=== PATIENT | female | born 1960 | race Caucasian/White ===

== ENCOUNTER → 2018-07-15 13:44 | Outpatient (CLI) | payer OTHER, SELFPAY ==
[2018-07-15 11:31] VITALS: BMI 45.1
== END ==
PROVIDERS: Family Provider Family Medicine; PCP Family Medicine; Referring Provider Nurse Practitioner Women's Health; Visit Provider Nurse Practitioner Women's Health
DX: N89.8 Other specified noninflammatory disorders of vagina (principal)
CPT/HCPCS: 87070; 87077; 87106; 87205

== ENCOUNTER → 2019-05-19 14:12 | Outpatient (CLI) | payer OTHER, SELFPAY ==
[2018-08-12 09:23] VITALS: BMI 45.1
[2019-05-19 16:00] LABS: Hemoglobin A1c 10.3 % (4.2-6.3)
[2019-05-19 16:27] LABS: ALB/GLOB Ratio 0.9 RATIO (0.9-2.4); AST(SGOT) 44 U/L (15-37); Alanine Aminotransfer ALT/SGPT 40 U/L (13-56); Albumin, Serum 3.7 g/dL (3.2-5.0); Alkaline Phosphatase 161 U/L (45-117); Anion Gap 9 (5-15); BUN 9 mg/dL (7-18); BUN/Creat Ratio 11.4 RATIO (10-20); Calcium,Total 9.7 mg/dL (8.5-10.1); Chloride 100 mmol/L (98-107); Creatinine, Serum 0.79 mg/dL (0.55-1.02); EST Glomerular Filtration Rate 80 mL/min (>60); Est Glom Filt Rate - Afr Amer 96 mL/min (>60); Globulin 3.9 g/dL (2.2-4.2); Glucose 302 mg/dL (74-106); Potassium 3.8 mmol/L (3.5-5.1); Protein, Total 7.6 g/dL (6.4-8.2); Sodium Level 136 mmol/L (136-145)
== END ==
PROVIDERS: PCP Family Medicine; Referring Provider Family Medicine; Visit Provider Family Medicine
DX: I10 Essential (primary) hypertension (principal); R81 Glycosuria; E03.9 Hypothyroidism, unspecified; N39.0 Urinary tract infection, site not specified
CPT/HCPCS: 36415; 80053; 83036; 84443; 87086; 87088

== ENCOUNTER → 2019-09-07 07:01 | Outpatient (CLI) | payer OTHER, SELFPAY ==
[2019-06-23 08:17] VITALS: BMI 45.1
--- NOTE | 2019-09-07 07:02 | BI_ITS ---
MAMMOGRAPHY - BILATERAL SCREENING REASON FOR EXAM: Female, 58 years old. Routine annual screening examination. PERTINENT HISTORY: Non-contributory. Remote right stereotactic breast biopsy. TECHNIQUE: Digital bilateral breast tracy (3D mammographic acquisition) in the CC and MLO projections. 2-D mediolateral oblique (MLO) and craniocaudad (CC) views of both breasts were obtained. CAD: Full Field Digital Mammography with Computer Added Detection was performed. COMPARISON: Comparison is made with prior EXAMINATION dated January 07, 2018. FINDINGS: Breast Composition: The breasts are almost entirely fatty. There are no dominant masses or suspicious calcifications. No other significant abnormalities are identified. There has been no significant change since the prior study. BI/SCREEN MAMM (CAD) W/TRACY BILAT IMPRESSION: Stable bilateral screening mammogram. Yearly follow-up mammogram recommended. (A) ASSESSMENT CATEGORY: BIRADS Category 1: Negative. A letter regarding these results will be sent to the patient by the facility within 30 days. Approximately 10% of breast cancers are not detected by mammography. A normal mammogram should not delay biopsy of a clinically suspicious abnormality. [id number] Electronically Signed: Florentin Zhang, at 9:33 EDT , Service support ,
--- OUTSIDE RECORDS SUMMARY | 2020-01-22 06:49 | XMS RPT_ITS | CCD ---
:1960 External Reference #:[id number] Author Organization [facility] Care Team Providers Name Role Phone SAURAV ROMEO Attending Unavailable SAURAV ROMEO Referring Unavailable SAURAV ROMEO Attending Unavailable SAURAV ROMEO Referring Unavailable ALICIA (ACCOUNT DIRECTOR) Attending Unavailable Allergies Reported Allergen Reaction(s) Severity Date of Onset Location atorvastatin Translations: 01-18-2015 [facility] [ ATORVASTATIN CALCIUM] [place] Repository Codeine Translations: [ 06-19-2014 - [facility] CODEINE] [place] Repos[facility] ry Erythromycin Translations: 06-19-2014 [facility] [ ERYTHROMYCIN] [place] Repos itory levoFLOXacin Translations: 01-18-2015 [facility] [ LEVOFLOXACIN] [place] Repos itory metOLazone Translations: [ 01-18-2015 [facility] METOLAZONE] [place] Reposito ry Sulfonamides (Antibiotic) [facility] [ SULFA [place] Repository (SULFONAMIDE ANTIBIOTICS)] traMADol Translations: [ 01-18-2015 - [facility] Main TRAMADOL] [place] Reposito ry Problems Active Problems Category Problem Name Status Date Location Unclassified Vulvar Discomfort Active 12-22-2017 - [facility] ([id number]) Past or Other Problems Category Problem Name Status Date Location Other screening for Encounter for Completed 01-07-2018 - [facility] suspected conditions screening mammogram [place] ([id number]) (not mental disorders for malignant or infectious disease) neoplasm of breast Results Result Name Value Range Unit Interpretation Flag Date Location wound culture/stain on 2018-04-19 Wound Sp. Request/Comment: - Swab Critically 0 04-19-2018 [place] Culture/Stain Smear Result - BACTERIAL VAG INOSIS RESULT: Stain results indicate mixed morphotypes consistent with transition from normal vaginal parker. No Yeast observed No Polymorphonuclear Leukocytes abnormal Clinic Culture Result - Few Escheri jesus coli --> ABNORMAL ALERT Few Normal vaginal parker No Staphylococcus aureus isolated. No yeast isolated. No Beta Streptococcus species isolated. No Neisseria gonorrhoea [facility] isolated. For optimal sens itivity, testing for Neisseria gonorrhoeae should be performed by molecular methods. ([id number]) ORGANISM: Escherichia coli METHOD: Minimum inhibitory concentration(Vitek) Antibiotic Interp CHUNG Status Ampicillin SUSCEPTIBLE <=2 F Gentamicin SUSCEPTIBLE <=1 F Trimeth sulfameth SUSCEPTIBLE <=20 F Ciprofloxacin SUSCEPTIBLE <=0.25 F Cefepime SUSCEPTIBLE <=1 F Piperacillin/Tazobac SUSCEPTIBLE <=4 F Ampicillin Sulbact SUSCEPTIBLE <=2 F Ceftriaxone SUSCEPTIBLE <=1 F Meropenem SUSCEPTIBLE <=0.25 F Ertapenem SUSCEPTIBLE <=0.5 F Comment: Performed By: #### WCUL #### [facility] s [address] [place], [place] [address] progress on 2018-04 Protein mass HNO ID: [id number] Normal 04-19-19 [facility] conc Author: Emily (Ceci) Alicia Montiel ([id number]) Service: (none) Author Type: Nurse Practitioner Type: Progress Notes Filed: 04/19/2018 3:58 PM Note Text: Emily Benedict is a 57 year old female who presents for pr oblem visit Vaginal irritation and bleeding. HPI: pt states that Sat when she wiped there was blood on th e tissue, she inspected and was positive that it was vaginal bleeding. She did wear a pad for the rest of the day and did have some more blood thr u out the day. Vaginal area was very irritated, she has not use the clobeta magali cream since then and states that the irritation is a little better . No bleeding since Sat. No recent intercourse. PAST MEDICAL HISTORY Diagnosis Date - Anxiety - Asthma - DM type 2 (diabetes mellitus, type 2) (HCC) - GERD (gastroesophageal reflux disease) - HTN (hypertension) - Hyperlipidemia - Hypothyroid PAST SURGICAL HISTORY Procedure Laterality Date - APPENDECTOMY HX 75 Lt ovarian cyst - CLOS VESICOVAGINAL FIST ABD AP 1990 3 mo after hysterecomty - COLONOSCOP W/ OR W/O [facility] SPEC 2014 Colonoscopy - LYSIS OF ADHESIONS 2207-0734 8 open surgeries for CYNDI - REPAIR ABDOMINAL HERNIA 11/08/2015 REPAIR HERNIA, RECURRENT VENTRAL, INCARCERATED OR STRANGULAT ED - REPAIR UMBILICAL HERNIA 2001 Mesh placed - RESECT SMALL INTEST,SINGL RESEC/ANAS 01/22/15 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 - removed, sma ll bowel resection, repair ventral hernia - wound vac - TOTAL ABDOM HYSTERECTOMY 1990 ELIAN/BSO for fibroids FAMILY HISTORY Problem Relation Age of Onset - Hypertension Mother - other (Lung Disease) Father Social History Marital status: Spouse name: Christopher Years of education: Number of children: 2 Occupational History 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 sertraline (ZOLOFT) 50 mg tablet Take 50 mg by mouth once da karley. fluconazole (DIFLUCAN) 150 mg tablet Take one tablet PO toda y and one tablet PO in 3 days (Patient not taking: Reported on 04/19/19 ) No current facility-administered medications for this visit. Allergies As of Date: 04/19/2018 Allergen Noted Reaction CODEINE 06/19/2014 Vomiting ERYTHROMYCIN 06/19/2014 Vomiting LEVAQUIN [LEVOFLOXACIN] 01/18/2015 Vomiting LIPITOR [ATORVASTATIN CALCIUM] 01/18/2015 Myalgia SULFA (SULFONAMIDE ANTIBIOTICS) 01/18/2015 Rash and GI Upset TRAMADOL 01/18/2015 Vomiting ZAROXOLYN [METOLAZONE] 01/18/2015 Other: See Comments Fully Assessed 04/19/2018 REVIEW OF SYSTEMS Abdomen: No bloating, early satiety, indigestion, or increas ed flatulence. No abdominal pain, nausea, vomiting, diarrhea, or constipati on. Bladder: No dysuria, gross hematuria, urinary frequency, uri nary urgency, or incontinence. Expanded ROS: N/A Allergies and current medication updated:Yes EXAM: There were no vitals taken for this visit. GENERAL: pleasant, female in no apparent distress HEENT: Normocephalic, atraumatic, mucus membranes moist and no lesions CHEST: Normal inspiratory effort PELVIC: external genitalia normal, normal Bartholin's glands , urethra, Mag[place]rib[place]'s glands, physiologic discharge present, normal appear ing perineal body and perianal region, cervix surgically absent, redness noted on the inner labia, no lacerations or abrasion noted-she has not be en sexually active. BIMANUAL: non-tender NEURO: alert and oriented x3,exam grossly non-focal ASSESSMENT AND PLAN: Wound culture sent Stop Clobetasol cream until culture results are in, may need to see specialist for Lichen sclerosus Will call with results Emily Vargas APRN.CNP cnov on 2018-04-19 CNOV Office Visit (WOOB) Normal 04-19-2018 [place] [facility] EMILY BENEDICT ([id number]) 1960 F [place] Date Time Provider Department ([id number]) 04/19/18 2:45 PM EMILY VARGAS (CECI) WOOB During your visit today, we recorded the following informati on about you: Blood pressure Weight 132/64 119.3 kg Emily Vargas APRN.CNP 04/19/2018 3:58 PM Signed Emily Link Marichuy is a 57 year old female who presents for pr oblem visit Vaginal irritation and bleeding. HPI: pt states that Sat when she wiped there was blood on th e tissue, she inspected and was positive t hat it was vaginal bleeding. She did wear a pad for the rest of the day and did have some more blood thru out the day. Vaginal area was very irritated, she has not use the clobetasol cream since then and states that the irritation is a little better. No bleeding since Sa t. No recent intercourse. PAST MEDICAL HISTORY Diagnosis Date - Anxiety - Asthma - DM type 2 (diabetes mellitus, type 2) ([facility]) - GERD (gastroesophageal reflux disease) - HTN (hypertension) - Hyperlipidemia - Hypothyroid PAST SURGICAL HISTORY Procedure Laterality Date - APPENDECTOMY HX 75 Lt ovarian cyst - CLOS VESICOVAGINAL FIST ABD AP 1990 3 mo after hysterecomty - COLONOSCOP W/ OR W/O [facility] SPEC 2014 Colonoscopy - LYSIS OF ADHESIONS 7499-4783 8 open surgeries for CYNDI - REPAIR ABDOMINAL HERNIA 11/08/2015 REPAIR HERNIA, RECURRENT VENTRAL, INCARCERATED OR STRANGULAT ED - REPAIR UMBILICAL HERNIA 2001 Mesh placed - RESECT SMALL INTEST,SINGL RESEC/ANAS 01/22/15 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 - removed, sma ll bowel resection, repair ventral hernia - wound vac - TOTAL ABDOM HYSTERECTOMY 1990 ELIAN/BSO for fibroids FAMILY HISTORY Problem Relation Age of Onset - Hypertension Mother - other (Lung Disease) Father Social History Marital status: Spouse name: Christopher Years of education: Number of children: 2 Occupational History 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 sertraline (ZOLOFT) 50 mg tablet Take 50 mg by mouth once da karley. fluconazole (DIFLUCAN) 150 m g tablet Take one tablet PO today and one tablet PO in 3 days (Patient not taking: Reported on 04/19/2018 ) No current facility-administered medications for this visit. Allergies As of Date: 04/19/2018 Allergen Noted Reaction CODEINE 06/19/2014 Vomiting ERYTHROMYCIN 06/19/2014 Vomiting LEVAQUIN [LEVOFLOXACIN] 01/18/2015 Vomiting LIPITOR [ATORVASTATIN CALCIUM] 01/18/2015 Myalgia SULFA (SULFONAMIDE ANTIBIOTICS) 01/18/2015 Rash and GI Upset TRAMADOL 01/18/2015 Vomiting ZAROXOLYN [METOLAZONE] 01/18/2015 Other: See Comments Fully Assessed 04/19/2018 REVIEW OF SYSTEMS Abdomen: No bloating, early satiety, indigestion , or increased flatulence. No abdominal pain, nausea, vomiting, diarrhea, or constipation. Bladder: No dysuria, gross hematuria, urinary frequenc y, urinary urgency, or incontinence. Expanded ROS: N/A Allergies and current medication updated:Yes EXAM: There were no vitals taken for this visit. GENERAL: pleasant, female in no apparent distress HEENT: Normocephalic, atraumatic, mucus membranes moist and no lesions CHEST: Normal inspiratory effort PELVIC: external genitalia normal, irma l Bartholin's glands, urethra, [place]rib[place]'s glands, physiologic discharge present, normal appearing vasile helen body and perianal region, cervix surg ically absent, redness noted on the inner labia, no lacerations or abrasion noted-she has not been sexually acti ve. BIMANUAL: non-tender NEURO: alert and oriented x3,exam grossly non-focal ASSESSMENT AND PLAN: Wound culture sent Stop Clobetasol cream until culture resu lts are in, may need to see specialist for Lichen sclerosus Will call with results Emily Vargas, [facility] Referring Provider: SELF [[id number]] Allergies As of Date: 04/19/2018 Noted Allergy Reaction CODEINE 06/19/2014 11 - Vomiting ERYTHROMYCIN 06/19/2014 11 - Vomiting LEVAQUIN (LEVOFLOXACIN) 01/18/2015 11 - Vomiting LIPITOR (ATORVASTATIN CALCIUM) 01/18/2015 17 - Myalgia SULFA (SULFONAMIDE ANTIBIOTICS) 01/18/2015 2 - Rash 8 - GI Upset TRAMADOL 01/18/2015 11 - Vomiting ZAROXOLYN (METOLAZONE) 01/18/2015 14 - Other: See Comments Comments: depletes K+ Date Reviewed: 04/19/2018 Reviewed by: Emily (Ceci) Alicia - Fully Assessed Reason for Visit: Vaginal Discharge [4161] Cmt: 3 days ago bloody discharge fr om vagina Primary Visit Diagnosis:Vaginal irritation [N89.8] Order(s):WOUND CULTURE AND GRAM STAIN [SQWCUL] Order #: [id number] Prescriptions as of 04/19/2018 Sig: CLOBETASOL 0.05 % TOPICAL OIN* apply to affected area twice * LEVOTHYROXINE 75 MCG TABLET HYDROCHLOROTHIAZIDE 25 MG TAB* ESTRADIOL 1 MG TABLET Take 1 mg by mouth once daily. SERTRALINE 50 MG TABLET Take 50 mg by mouth once dot* Problem List As Of Date 04/19/2018 Noted Resolved Overactive bladder [N32.81] INVALID FOR* More... 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 Encounter Status:Closed by EMILY VARGAS on 04/19/18 progress on 2018-01 Protein mass HNO ID: [id number] Normal 01-08-20 18 [facility] Author: Lizette Romeo [place] Service: (none) ([phone]) Author Type: Physician Type: Progress Notes Filed: 01/07/2018 9:54 AM Note Text: Emily Benedict is a 57 year old who presents for her annual gynecologic exam without complaints. Still with vaginal itch ing- reports only minor improvement since starting clobetasol. Denies dis charge or odor- no changes in soaps/detergents. Bx in 2014 confirms LS Postmenopausal: Yes HRT use: No. History of abnormal pap: No Last mammogram: 2017 normal History of abnormal mammogram: No Sexually active: Yes History of STDS: None Patient concerns for STD exposure: No. Pain with intercourse: No Postcoital bleeding: No Hot flashes: No Night sweats: No Vaginal dryness: no- vaginal irritation/itching/burning Exercise: was getting routine exercise- Surgeon told her to stop due to large abdominal mesh Diet: balanced Obstetric History T0 L2 SAB0 TAB0 Ectopic0 Multiple0 Live Births0 PAST MEDICAL HISTORY Diagnosis Date - Anxiety - Asthma - DM type 2 (diabetes mellitus, type 2) (HCC) - GERD (gastroesophageal reflux disease) - HTN (hypertension) - Hyperlipidemia - Hypothyroid PAST SURGICAL HISTORY Procedure Laterality Date - APPENDECTOMY HX 75 Lt ovarian cyst - CLOS VESICOVAGINAL FIST ABD AP 1990 3 mo after hysterecomty - COLONOSCOP W/ OR W/O [facility] SPEC 2015 Colonoscopy - LYSIS OF ADHESIONS 3050-1409 8 open surgeries for CYNDI - REPAIR ABDOMINAL HERNIA 11/08/2015 REPAIR HERNIA, RECURRENT VENTRAL, INCARCERATED OR STRANGULAT ED - REPAIR UMBILICAL HERNIA 2001 Mesh placed - RESECT SMALL INTEST,SINGL RESEC/ANAS 01/22/15 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 No bloating, early satiety, indigestion, or increased flatul ence. Bladder: No dysuria, gross hematuria, urinary frequency, uri nary urgency, or incontinence Breast: No breast lumps, nipple d/c, overlying skin changes, redness or skin retraction Allergies and current medication updated:Yes EXAM: BP 140/80 Ht 5' 3 (1.60m) Wt 257 lb (116.6kg) B KS 45.54 kg/(m2). GENERAL: pleasant, female in no apparent distress HEENT: Normocephalic, atraumatic, mucus membranes moist and no lesions NECK: Supple, full range of motion, no adenopathy and thyroi d normal DERMATOLOGY: Normal, without lesions, non-icteric and non-hi rsute BREAST: soft, non-tender, symmetric, no dominant mass, irma l nipple-areolar complex, no lymphadenopathy and no nipple dis charge ABDOMEN: soft, non-tender and no masses- well healed incisio n sites PELVIC: normal Bartholin's glands, urethra, Magas Arrib[place]'s glands, labia are erythematous, with white thick discharge. Possible yeast wit h LS BIMANUAL: no adnexal masses, non-tender and uterus surgicall y absent RECTOVAGINAL: deferred. NEURO: alert and oriented x3,exam grossly non-focal EXTREMITIES: normal ASSESSMENT/PLAN: 1) Health maintenance: Pap/HPV screening no longer needed Mammogram ordered Nutrition, exercise and routine health maintenance exams rev iewed. Calcium/Vitamin D supplementation information provided. Colon cancer screening: patient to discuss with PCP 2) Follow up one year or sooner as needed 3) diflucan for possible yeast vulvitis and LS flare- contin ue clobetasol now- pt to call if no improvement in one more week- then kadeem l do vulvar biopsy. 4) will send message to [facility] for any further eric mmendations for flare up LS- likely will need to just continue clobetaso l for now Lizette Saini MD Protein mass HNO ID: [id number] Normal 01-08-20 [facility] conc Author: Pavithra Vora Ma [place] Service: (none) (000 00) Author Type: (none) Type: Progress Notes Filed: 01/07/2018 9:54 AM Note Text: Fountain Helper offered: Patient declines. reginald screening on -01-07 REGINALD SCREENING * * *Final Report* * * Normal [facility] DATE OF EXAM: Jan 07 2018 10:05AM [place] ([id number]) WOW 0581 - REGINALD SCREENING / PROCEDURE REASON: Visit for screening mammogram * * * * Physician Interpretation * * * * RESULT: #[id number] - REGINALD SCREENING BILATERAL DIGITAL SCREENING MAMMOGRAM WITH CAD: 01/07/2018 HISTORY: Visit For Screening Mammogram /Screening Mammogram - patient reports NO breast symptoms /Priors available for comparison. RESULT: TECHNIQUE: The study was acquired using full field digital t echnology and interpreted from soft copy. Current study was also evaluated with a Computer Aided Detec tion (CAD). Comparison is made to exams dated: 12/29/2016 mammogram - [facility] and 12/27/2015 mammogram. The tissue of both breasts is predominantly fatty. There are post operative findings in the right breast. No significant masses, calcifications, or other findings are seen in either breast. There has been no significant interval change. IMPRESSION: BENIGN FINDING There is no mammographic evidence of malignancy. A 1 year sc reening mammogram is recommended. Vidhi argueta/cleo:01/07/2018 11:10:55 Dust Collector Attendant: Manisha CHO)([place]), [facility] letter sent: Normal over 40 Mammogram BI-RADS: 2 Benign finding Multiple national specialty organizations have released lauren st cancer screening guidelines for women at average risk for developin g breast cancer - guidelines that are based on both evidence and opin ion, yet differ on when to start and how often to screen for breast c joseer. With representation from Breast Imaging, Internal Medicine, Women 's Health, Family Medicine, and Medical/Surgical Oncology, the [facility] has carefully reviewed the data and reached the following consen bea: 1) All women should engage in shared decision-making with [facility] providers to decide when to start and how often to screen; 2) All women should have the opportunity to start screening mammography at age 40; 3) For women ages 45-55, we recommend annual screening mammo grams; 4) For women ages 55 and over, we support both the transitio n from an annual to a biennial interval if this aligns more with patie nt's values and preferences, or continuation with annual screening; 5) All women should discuss with their providers when to sto p screening mammograms. Hose Tester: Cleo Transcribe Date/Time: Jan 07 2018 10:05A Dictated by: VIDHI STARK MD This examination was interpreted and the report reviewed and electronically signed by: VIDHI STARK MD on Jan 07 2018 11:10AM EST [id number] cnov on 2018-01-07 CNOV Office Visit (WOOB) Normal 01-07-2018 [place] [facility] EMILY BENEDICT ([id number]) 1960 F [facility] Time Provider Department ([id number]) 01/07/18 9:00 AM LIZETTE MARK WOOB During your visit today, we recorded the following informati on about you: Blood pressure Weight Height 140/80 116.6 kg 1.6 m Pavithra Vora Ma 01/07/2018 9:54 AM Signed Fountain Helper offered: Patient declines. Lizette Saini MD 01/07/2018 9:54 AM Signed Emily Benedict is a 57 year old w ho presents for her annual gynecologic exam without complaints. Still with vaginal itching- reports only minor improvement since starting clobetasol. D enies discharge or odor- no changes in soaps/detergents. Bx in 2014 confirms LS Postmenopausal: Yes HRT use: No. History of abnormal pap: No Last mammogram: 2016 normal History of abnormal mammogram: No Sexually active: Yes History of STDS: None Patient concerns for STD exposure: No. Pain with intercourse: No Postcoital bleeding: No Hot flashes: No Night sweats: No Vaginal dryness: no- vaginal irritation/itching/burning Exercise: was getting routine exercise- Surgeon told her to stop due to large abdominal mesh Diet: balanced Obstetric History T0 L2 SAB0 TAB0 Ectopic0 Multiple0 Live Births0 PAST MEDICAL HISTORY Diagnosis Date - Anxiety - Asthma - DM type 2 (diabetes mellitus, type 2) (HCC) - GERD (gastroesophageal reflux disease) - HTN (hypertension) - Hyperlipidemia - Hypothyroid PAST SURGICAL HISTORY Procedure Laterality Date - APPENDECTOMY HX 75 Lt ovarian cyst - CLOS VESICOVAGINAL FIST ABD AP 1990 3 mo after hysterecomty - COLONOSCOP W/ OR W/O [facility] SPEC 2014 Colonoscopy - LYSIS OF ADHESIONS 6127-1806 8 open surgeries for CYNDI - REPAIR ABDOMINAL HERNIA 11/08/2015 REPAIR HERNIA, RECURRENT VENTRAL, INCARCERATED OR STRANGULAT ED - REPAIR UMBILICAL HERNIA 2001 Mesh placed - RESECT SMALL INTEST,SINGL RESEC/ANAS 01/22/15 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 No bloating, early satiety, indigestion, or increased flatulenc e. Bladder: No dysuria, gross hematuria, urinary frequenc y, urinary urgency, or incontinence Breast: No breast lumps, nipple d/c, overlying skin ch anges, redness or skin retraction Allergies and current medication updated:Yes EXAM: BP 140/80 Ht 5' 3 (1.60m) Wt 257 lb ( 116.6kg) BMI 45.54 kg/(m2). GENERAL: pleasant, female in no apparent distress HEENT: Normocephalic, atraumatic, mucus membranes moist and no lesions NECK: Supple, full range of motion, no adenopathy and thyroi d normal DERMATOLOGY: Normal, without lesions, non-icteric and non-hi rsute BREAST: soft, non-tender, symmetric, no dominant mass, normal nipple-areolar complex, no lymphadenopathy and no nipple discharge ABDOMEN: soft, non-tender and no masses- well healed incisio n sites PELVIC: normal Bartholin's glands, urethra, Magas [place]rib[place]'s glands, labia are erythematous, with white thick discharge. Possible yeast wit h LS BIMANUAL: no adnexal masses, non-tender and uterus surgicall y absent RECTOVAGINAL: deferred. NEURO: alert and oriented x3,exam grossly non-focal EXTREMITIES: normal ASSESSMENT/PLAN: 1) Health maintenance: Pap/HPV screening no longer needed Mammogram ordered Nutrition, exercise and routine health maintenance exams rev iewed. Calcium/Vitamin D supplementation information provided. Colon cancer screening: patient to discuss with PCP 2) Follow up one year or sooner as needed 3) diflucan for possible yeast vulvitis and LS flare- continue clobetasol now- pt to call if no improvement in one more week- then will do vulvar biopsy. 4) will send message [facility] for any further re commendations for flare up LS- likely will need to just continue clobetasol fo r now MD Lizette Newsome MD 01/07/2018 9:14 AM Signed Calcium and Vitamin D Supplementation (from the National Institutes of Health Office of Dietary Supplements 2010) Calcium is required by the body for blood vessel, muscle, hormone and nerve functioning. Most of the body's calcium is stored in the bones and teeth where it supports structure and function. Bone is continuously bro bull down and reformed. When bone breakdown exceeds formation, especially in postmenopausal women, bone loss can increase the risk of osteoporosis and f ractures. In addition to low calcium intake, women who smoke, have a fami ly history of osteoporosis, are thin, or , or who take ce rtain medications such as cancer chemotherapy, seizure mediations and steroids are at increased risk of osteoporosis. The calcium requirements in women change with ag e. The National Institutes of Health (NIH) recommends: 1000mg elemental calcium for premenopausal women age 19-50 1200mg elemental calcium for postmenopausal women and all wo men over 50 Milk, yogurt, and cheese are rich natura l sources of calcium and are the major food contributors in the [facility]. For example, 8oz of milk (whole, lowfat or skim) contains about 300mg calcium, 8oz of yo gurt contains 415mg. Nondairy sources include salmon and sardines and vegetables, davalos ch as Grenadian cabbage, kale, and broccoli. Foods fortified with calcium include m any fruit juices, tofu and cereals. For more food calcium content information, visit http://ods.od.nih.gov/factsheets/calcium. Calcium supplements come in several different forms. Bharath r that the recommendations are for millgrams (mg) of elemen melchor calcium which may be less than the total weight of the supplement. The amount of marleni mental calcium is required to be printed on the label. Calcium car bonate is the least expensive form. It must be taken on a full stomach to be properly absorbed. Some patients may experience gas or constipation. Calcium phos phate and calcium citrate may be taken either with or with out food and tend to have less side effects but are generally more expensive. Because of its ability to neutralize stomach aci d, calcium carbonate is found in some odam-gnv-xwtaeej antacid products, such as Tums? and Rolaids?. Depending on its strength, each chewable pill or softchew provides 200 to 400 mg of elemental calcium. The percentage of calcium absorbed depends on the total am ount of elemental calcium consumed at one time . Absorption is highest in doses <500mg. So a woman who takes 1,000mg/day of calcium from supplements should s plit the dose and take 500mg at two separate times during the day. Too much calcium can cause kidney stones, constipation , difficulty absorbing other nutrients and calcium buildup in blood vessels. Women under 50 should not exceed 2500mg/day (2000mg/day for women over 50) of calcium from food and supplements. Excessive alcohol and caffeine intake can inhibit absorption of calcium. Calcium can reduce the absor ption of some medications if taken at the same time of day (bisphosphonates, thyroid medication, Phenytoin and o ther seizure medications, some antibiotics and iron supplements). Vitamin D promotes calcium absorption in the gut and maintains adequate blood levels of calcium and phosphate for normal bone growth and bone remodeling. Vitamin D also helps regulate cell growth as wel l as nerve, muscle and immune system function. Vitamin D is produced in the sk in as a result of ultraviolet sunlight rays and must be altered in the liver and kidney to become its active form. Recommended intake according to the National Institutes of H ealth is 600 International Units (IU) for girls and women ages 1-70 and 800 IU for women over 70. Very few foods in nature contain vitamin D. T he flesh of fatty fish (such as salmon, tuna, and mackerel) and fish liver oils a re among the best sources. Small amounts of vitamin D are found in beef liver, cheese, mushrooms and egg yolks. Most people meet at least some of their vitamin D needs through exposure to sunlight. Season, time of day, length of d ay, cloud cover, smog, skin melanin content, and sunscreen are among the factors th at affect UV radiation exposure and vitamin D synthesis. Desp ite the importance of the sun for vitamin D synthesis, it is prudent to limit exposu re of skin to sunlight and avoid tanning beds. UV radiation is a carcinogen r esponsible for most of the estimated 1.5 million skin cancers that occur annually i n the [place]. Lifetime cumulative UV damage to skin is also respon sible for some age-associated dryness and other cosmetic changes. In supplements and fortified foods, vitamin D is available in two forms, D2 (ergocalciferol) and D3 (cholecalciferol). The two are equ ivalent at normal supplement doses. For women who require high supplement dose s because of vitamin D deficiency, D3 may work better to raise blood leve ls. Some medications can prevent proper absorption of Vitamin D. Thes e include laxatives, corticosteroids l alyce prednisone, the seizure drugs phenobarbital and phenytoin, the weight-loss drug orlistat ( Xenical? and Everton TM) and the cholesterol-lowering drug cholestyramine (Questran?, LoChole st?, and Prevalite?). Talk to your do ctor about adjusting your recommended daily vitamin D dosage if you take these medications. You should not exceed 4000 mg of vitamin D supplementation d aily unless specifically prescribed by your doctor. ACOG Screening Guidelines (2015) The following health screening schedule is recommended by the [place] [employer] (ACOG). Some of these tests may be ordered or performed by your primary care doctor. Pap test screening The pap test looks at cells on the cervix (the o pening from the vagina to the uterus) to look for cancer or pre-cancerous kessler ges. These changes are caused by the human papillomavirus (HPV). Studies estimate that rajesh f of all women will test positive for this virus within 3 years of starting sexual activity. For young women with a irma l immune system, 90% of HPV infections will resolve within 2 years. There is a vaccine available against s ome forms of HPV. This is recommended for girls and women age 9-26 and is a serie s of 3 injections over 6 months. Because this vaccine does not protect against all HPV types which can cause cervical cancer, women w ho received the vaccine still need pap tests. Pap smear screening should be started at age 21. The p ap test should be done every 3 years from age 21-29. From age 30-65, pap smea rs can be done every 5 years if HPV test is negative or every 3 years if HPV testing is not done. For women over the age of 65, ACOG recommend s against screening women who have had adequate prior screening and are not otherwise at high risk for cervical cancer. Women who have had a hysterectomy also do not need routine pap smear screening unless the pap smear was done for a cervical cancer or moderate to severe dysplasia. Breast cancer screening Mammogram should be performe d every 1-2 years starting at age 40 and every year starting at age 50. Screening may be started earlier dependi ng on family history. Cholesterol screening Lipid panel (cholesterol test) should be checked every 5 years starting at age 45. Diabetes screening Fasting glucose (blood sugar) test should be per formed every 3 years starting at age 45. Colorectal cancer screening Starting at age 50, women sh ould have a screening colonoscopy at least every 10 years. Screening may be started earlier depending on family history. Thyroid screening Thyroid function test (TSH) should be checked every 5 years starting at age 50. Bone mineral density screening All postmenopausal women age 65 and over and postmenopausa l women with risk factors for osteoporosis should have a bone mineral densit y test performed. Risk factors include race, family hist ory of osteoporosis, personal history of fractures, poor nutrition, smoking, heavy alcohol use, early menopause, low calcium intake and low body weigh t. Certain medical conditions and long-term use of some medications may also increase risk . Minimizing irritation of the vulva (area around the vagina) Wear white cotton underwear. Avoid synthetic fabrics and tight clothing. Sleep wearing shorts or pajama bottoms without underwear. Shower as soon as possible after exercise. Avoid clothing detergents and soaps with perfume s or dyes. Use warm (not hot) water to wash the vulva and if you use soap use a product de signed for sensitive skin (like Dove or Cetaphil). Do not douche or use creams/powders in the vulvar area unl ess instructed by your physician. If you must douche, use only plain warm wate r. Make sure the vulva is dry before dressing by pa tting dry with a towel. Avoid vigorous rubbing with the towel. You may want to use the b low dryer (on the cool setting only!) on the vulva. The most important way to let your body heal is by huyen iding scratching. Many patients find it difficult to avoid scratching at night when they are most aware of the itchiness. You can try taking Benad ryl just before bedtime. Some women find it helpful to wear cotton gloves to bed to avoid scratching at night. Referring Provider: LIZETTE MARK [[id number]] Allergies As of Date: 01/07/2018 Noted Allergy Reaction CODEINE 06/19/2014 11 - Vomiting ERYTHROMYCIN 06/19/2014 11 - Vomiting LEVAQUIN (LEVOFLOXACIN) 01/18/2015 11 - Vomiting LIPITOR (ATORVASTATIN CALCIUM) 01/18/2015 17 - Myalgia SULFA (SULFONAMIDE ANTIBIOTICS) 01/18/2015 2 - Rash 8 - GI Upset TRAMADOL 01/18/2015 11 - Vomiting ZAROXOLYN (METOLAZONE) 01/18/2015 14 - Other: See Comments Comments: depletes K+ Date Reviewed: 01/07/2018 Reviewed by: Pavithra Vora Ma - Fully Assessed Reason for Visit: Yearly Exam [187] Primary Visit Diagnosis:Encounter for gynecological examinat ion without abnormal finding [Z01.419] Other Visit Diagnosis:Visit for screening mammogram [Z12.31] Order(s):[facility] [[id number]] Order #: [id number] FUTURE fluconazole (DIFLUCAN) 150 mg tabletTake one tablet PO today and one tablet PO in 3 daysDisp: 2 tabletRfl: 1 clobetasol (TEMOVATE) 0.05 % ointmentApply 1 application to affected area twice daily. TO AFFECTED AREA.Disp: 30 gRfl: 1 Prescriptions as of 01/07/2018 Sig: CLOBETASOL 0.05 % TOPICAL OIN* Apply 1 application to affect * LEVOTHYROXINE 75 MCG TABLET HYDROCHLOROTHIAZIDE 25 MG TAB* ESTRADIOL 1 MG TABLET Take 1 mg by mouth once daily. SERTRALINE 50 MG TABLET Take 50 mg by mouth once dot* FLUCONAZOLE 150 MG TABLET Take one tablet PO today and * Problem List As Of Date 01/07/2018 Noted Resolved Overactive bladder [N32.81] INVALID FOR* More... 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 Most of the body's calcium is stored in t he bones and teeth where it supports structure and function. Bone is cont inuously broken down and reformed. When bone breakdown exceeds format ion, especially in postmenopausal women, bone loss can increase t he risk of osteoporosis and fractures. In addition to low calcium intak e, women who smoke, have a family history of osteoporosis, are thin, Cauc or , or who take certain medications such as cancer chemot herapy, seizure mediations and steroids are at increased risk of ost eoporosis. The calcium requirements in women change with age. The [facility] Institutes of Health (NIH) recommends: 1000mg elemental calcium for premenopausal women age 19-50 1200mg elemental calcium for postmenopausal women and all wo men over 50 Milk, yogurt, and cheese are rich natural sources of calcium and are the major food contributors in the [place]. For example, 8 oz of milk (whole, lowfat or skim) contains about 300mg calcium, 8oz of yogurt contains 415mg. Nondairy sources include salmon and sardines and vegetables, such as [place] cabbage, kale, and broccoli. Teofilo ds fortified with calcium include many fruit juices, tofu and cereals. Fo r more food calcium content information, visit http://ods.od.nih.gov/factsheets/calcium. Calcium supplements come in several different forms. Bharath r that the recommendations are for millgrams (mg) of elemental calcium which may be less than the total weight of the supplement. The amount of elemental calcium is required to be printed on the label. Calcium carb felipe is the least expensive form. It must be taken on a full stomach to be properly absorbed. Some patients may experience gas or constipation. Calcium phosphate and calcium citrate may be taken either with or wi thout food and tend to have less side effects but are generally more expens alfonso. Because of its ability to neutralize stomach acid, calcium c arbonate is found in some ijln-tko-ygkprbp antacid products, such as Lisha s? and Rolaids?. Depending on its strength, each chewable pill or s oftchew provides 200 to 400 mg of elemental calcium. The percentage of calcium absorbed depends on the total amou nt of elemental calcium consumed at one time. Absorption is highes t in doses <500mg. So a woman who takes 1,000mg/day of calcium from sup plements should split the dose and take 500mg at two separate times d uring the day. Too much calcium can cause kidney stones, constipation, diff iculty absorbing other nutrients and calcium buildup in blood vesse ls. Women under 50 should not exceed 2500mg/day (2000mg/day for women over 50) of calcium from food and supplements. Excessive alcohol and caffeine intake can inhibit absorption of calcium. Calcium can reduce the absorption of some medications if tiffanie en at the same time of day (bisphosphonates, thyroid medication, Phenytoin and other seizure medications, some antibiotics and iron supplements). Vitamin D promotes calcium absorption in the gut and maintai ns adequate blood levels of calcium and phosphate for normal bone growth and bone remodeling. Vitamin D also helps regulate cell growth as wel l as nerve, muscle and immune system function. Vitamin D is produced in the skin as a result of ultraviolet sunlight rays and must be altered in t he liver and kidney to become its active form. Recommended intake according to the National Institutes of H ealth is 600 International Units (IU) for girls and women ages 1-70 and 8 00 IU for women over 70. Very few foods in nature contain vitamin D. T he flesh of fatty fish (such as salmon, tuna, and mackerel) and fish luz er oils are among the best sources. Small amounts of vitamin D are found in beef liver, cheese, mushrooms and egg yolks. Most people meet at least some of their vitamin D needs through exposure to sunlight. Season, time of day, length of day, cloud cover, smog, skin melanin content, and sunscreen are among the factors that affect UV radiation exposure and mike min D synthesis. Despite the importance of the sun for vitamin D s ynthesis, it is prudent to limit exposure of skin to sunlight and avoid t anning beds. UV radiation is a carcinogen responsible for most of the est imated 1.5 million skin cancers that occur annually in the [place]. Lifetime cumulative UV damage to skin is also responsible for some ag e-associated dryness and other cosmetic changes. In supplements and fortified foods, vitamin D is available i n two forms, D2 (ergocalciferol) and D3 (cholecalciferol). The two are eq uivalent at normal supplement doses. For women who require high suppleme nt doses because of vitamin D deficiency, D3 may work better to raise blood levels. Some medications can prevent proper absorption of Vitamin D. These include laxatives, corticosteroids like prednisone, the seizure drug s phenobarbital and phenytoin, the weight-loss drug orlistat ( Xenical? and AlliTM) and the cholesterol-lowering drug cholestyramine (Qu estran?, LoCholest?, and Prevalite?). Talk to your doctor about adjus ting your recommended daily vitamin D dosage if you take these medicat ions. You should not exceed 4000 mg of vitamin D supplementation d aily unless specifically prescribed by your doctor. ACOG Screening Guidelines (2015) The following health screening schedule is recommended by [facility] [employer] (ACOG). Some of these t ests may be ordered or performed by your primary care doctor. Pap test screening The pap test looks at cells on the cervix (the opening from the vagina to the uterus) to look for cancer or pre-cancerous changes. The se changes are caused by the human papillomavirus (HPV). Studies estima te that half of all women will test positive for this virus within 3 year s of starting sexual activity. For young women with a normal immune system , 90% of HPV infections will resolve within 2 years. There is a vaccine a vailable against some forms of HPV. This is recommended for girls and women age 9-26 and is a series of 3 injections over 6 months. Because this vaccine does not protect against all HPV types which can cause cervi bartolome cancer, women who received the vaccine still need pap tests. Pap smear screening should be started at age 21. The pap jamal t should be done every 3 years from age 21-29. From age 30-65, pap smear s can be done every 5 years if HPV test is negative or every 3 years if HP V testing is not done. For women over the age of 65, ACOG recommends agai nst screening women who have had adequate prior screening and are not othe rwise at high risk for cervical cancer. Women who have had a hysterectomy also do not need routine pap smear screening unless the pap smear was do ne for a cervical cancer or moderate to severe dysplasia. Breast cancer screening Mammogram should be performed every 1-2 years starting at ag e 40 and every year starting at age 50. Screening may be started earlier de pending on family history. Cholesterol screening Lipid panel (cholesterol test) should be checked every 5 yea rs starting at age 45. Diabetes screening Fasting glucose (blood sugar) test should be performed every 3 years starting at age 45. Colorectal cancer screening Starting at age 50, women should have a screening colonoscop y at least every 10 years. Screening may be started earlier depending o n family history. Thyroid screening Thyroid function test (TSH) should be checked every 5 years starting at age 50. Bone mineral density screening All postmenopausal women age 65 and over and postmenopausal women with risk factors for osteoporosis should have a bone mineral den sity test performed. Risk factors include race, family histo ry of osteoporosis, personal history of fractures, poor nutrition, smoking, heavy alcohol use, early menopause, low calcium intake and l ow body weight. Certain medical conditions and long-term use of some medications may also increase risk. Minimizing irritation of the vulva (area around the vagina) Wear white cotton underwear. Avoid synthetic fabrics and tight clothing. Sleep wearing shorts or pajama bottoms without underwear. Shower as soon as possible after exercise. Avoid clothing detergents and soaps with perfumes or dyes. U se warm (not hot) water to wash the vulva and if you use soap use a produ ct designed for sensitive skin (like Dove or Cetaphil). Do not douche or use creams/powders in the vulvar area unles s instructed by your physician. If you must douche, use only plain warm w ater. Make sure the vulva is dry before dressing by patting dry wi th a towel. Avoid vigorous rubbing with the towel. You may want to use t he blow dryer (on the cool setting only!) on the vulva. The most important way to let your body heal is by avoiding scratching. Many patients find it difficult to avoid scratching at night when they are most aware of the itchiness. You can try taking Benadryl jus t before bedtime. Some women find it helpful to wear cotton gloves to bed to avoid scratching at night. Prescriptions ordered this encounter Disp Refills Start End FLUCONAZOLE 150 MG TABLET 2 ta* 1 01/07/2018 Sig: Take one tablet PO today and one tablet PO in 3 days CLOBETASOL 0.05 % TOPICAL OINTMENT 30 g 1 01/07/2018 Route: TOPICAL Sig: Apply 1 application to affected area twice daily. TO AF FECTED AREA. Medications Discontinued During This Encounter clobetasol (TEMOVATE) 0.05 % ointment 30 g 1 12/22/20172017 Route: TOPICAL Sig: Apply 1 application to affected area twice daily. TO AF FECTED AREA. Disc: Reason for discontinue is not on file. Disposition: Return in 1 year (on 01/07/2019) for Annual Exam . Follow-up and Disposition History Recorded Encounter Status:Closed by LIZETTE ROMEO MD on 01/07/18 cnco on 2018-01-07 [facility] HNO ID: [id number] Normal 01-07-2018 [facility] Author: Mammography Coordinator ([id number]) Service: (none) Author Type: Physician Type: Letter Filed: 01/11/2018 11:31 PM Note Text: January 07, 2018 PID: [id number] Emily Benedict [address] [place] [address] Dear Ms. Benedict, We are pleased to inform you that the results of your recent breast imaging exam on 01/07/2018 are normal. Early detection of cancer is very important. We also underst and recommendations regarding breast cancer screening are contro versial. Please discuss with your primary care provider which strateg y is best for you and whether a mammogram is right for you. Your imaging studies and report will be kept on file at [facility] as part of your permanent medical record and are available f or your continuing care. Thank you for allowing us to help in meeting your health car e needs. Sincerely, Dr. Stark Interpreting Radiologist [facility] (Normal over 40) progress on 2017-12 Protein mass HNO ID: [id number] Normal 12-23-19 [facility] conc Author: Lizette Romeo [place] ([id number]) Service: (none) Author Type: Physician Type: Progress Notes Filed: 12/22/2017 1:20 PM Note Text: Fountain Helper offered: Patient declines. Emily Benedict is a 57 year old female who presents for co ncerns regarding LS flare up. Pt reports over past few weeks vagina l itching and irritation. Pt denies vaginal discharge, odors or other conc erns today. Pt reports she did have some relief with clobetasol but did not use it regularly. Pt reports then tried hydrocortisone which create d a lot of burning sensation. PAST MEDICAL HISTORY Diagnosis Date - Anxiety - Asthma - DM type 2 (diabetes mellitus, type 2) (HCC) - GERD (gastroesophageal reflux disease) - HTN (hypertension) - Hyperlipidemia - Hypothyroid PAST SURGICAL HISTORY Procedure Laterality Date - APPENDECTOMY HX 76 Lt ovarian cyst - CLOS VESICOVAGINAL FIST ABD AP 1990 3 mo after hysterecomty - COLONOSCOP W/ OR W/O [facility] 2014 Colonoscopy - LYSIS OF ADHESIONS [id number] open surgeries for CYNDI - REPAIR ABDOMINAL HERNIA 11/08/2015 REPAIR HERNIA, RECURRENT VENTRAL, INCARCERATED OR STRANGULAT ED - REPAIR UMBILICAL HERNIA 2001 Mesh placed - RESECT SMALL INTEST,SINGL RESEC/ANAS 01/22/15 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 - removed, sma ll bowel resection, repair ventral hernia - wound vac - TOTAL ABDOM HYSTERECTOMY 1990 ELIAN/BSO for fibroids FAMILY HISTORY Problem Relation Age of Onset - Hypertension Mother - other (Lung Disease) Father Social History Marital status: Spouse name: Christopher Years of education: Number of children: 2 Occupational History 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 TO AFFECTED AREA. levothyroxine (SYNTHROID) 75 mcg tablet hydrochlorothiazide (HYDRODIURIL, ESIDRIX) 25 mg tablet estradiol (ESTRACE) 1 mg tablet Take 1 mg by mouth once dot y. sertraline (ZOLOFT) 50 mg tablet Take 50 mg by mouth once da karley. No current facility-administered medications for this visit. Allergies As of Date: 12/22/2017 Allergen Noted Reaction CODEINE 06/19/2014 Vomiting ERYTHROMYCIN 06/19/2014 Vomiting LEVAQUIN [LEVOFLOXACIN] 01/18/2015 Vomiting LIPITOR [ATORVASTATIN CALCIUM] 01/18/2015 Myalgia SULFA (SULFONAMIDE ANTIBIOTICS) 01/18/2015 Rash and GI Upset TRAMADOL 01/18/2015 Vomiting ZAROXOLYN [METOLAZONE] 01/18/2015 Other: See Comments Fully Assessed 03/05/2017 REVIEW OF SYSTEMS Abdomen: no pain Bladder: dysuria .. Expanded ROS: GENERAL: Negative for fever Allergies and current medication updated:Yes EXAM: BP 140/82 Wt 259 lb (117.5kg) GENERAL: pleasant, female in no apparent distress HEENT: Normocephalic and atraumatic NECK: full range of motion DERMATOLOGY: Normal, without lesions, non-icteric and non-hi rsute PELVIC: normal Bartholin's glands, urethra, [place]'s glands, no cervical lesions, good vaginal support, physiologic discharge present , labial agglutination- erythema and excoriations noted- appears c/w LS. NEURO: alert and oriented x3,exam grossly non-focal EXTREMITIES: normal ASSESSMENT AND PLAN: Encounter Diagnosis ICD-10-CM 1. Vulvar irritation N90.89 2. Encounter for screening mammogram for malignant neoplasm of breast Z12.31 [facility] SCREEN[facility] 3. Lichen sclerosus et atrophicus L90.0 4. Vulvar pain R10.2 3. Clobetasol reordered- apply BID x 4 weeks then weekly - i f worsening or no improvement notify office. 4. Vulvar hygiene reviewed 5. RTO yearly exam as scheduled in january Lizette Saini MD cnov on 2017-12-22 CNOV Office Visit (WOOB) Normal 12-22-2017 [facility] MARICHUYEMILY AVILES ([id number]) 1960 F [place] Date Time Provider Department ([id number]) 12/22/17 11:40 AM LIZETTE MARK WOOB During your visit today, we recorded the following informati on about you: Blood pressure Weight 140/82 117.5 kg Lizette Saini MD 12/22/2017 1:20 PM Signed Fountain Helper offered: Patient declines. Emily Benedict is a 57 yea r old female who presents for concerns regarding LS flare up. Pt reports over past few weeks vaginal itching a nd irritation. Pt denies vaginal discharge, odors or other concerns today. P t reports she did have some relief with clobetasol but did not use it regularly. Pt reports then tried hydrocortisone which created a lot of burning sensatio n. PAST MEDICAL HISTORY Diagnosis Date - Anxiety - Asthma - DM type 2 (diabetes mellitus, type 2) (HCC) - GERD (gastroesophageal reflux disease) - HTN (hypertension) - Hyperlipidemia - Hypothyroid PAST SURGICAL HISTORY Procedure Laterality Date - APPENDECTOMY HX 75 Lt ovarian cyst - CLOS VESICOVAGINAL FIST ABD AP 1990 3 mo after hysterecomty - COLONOSCOP W/ OR W/O [facility] 2014 Colonoscopy - LYSIS OF ADHESIONS [id number] 8 open surgeries for CYNDI - REPAIR ABDOMINAL HERNIA 11/08/2015 REPAIR HERNIA, RECURRENT VENTRAL, INCARCERATED OR STRANGULAT ED - REPAIR UMBILICAL HERNIA 2001 Mesh placed - RESECT SMALL INTEST,SINGL RESEC/ANAS 01/22/15 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 - removed, sma ll bowel resection, repair ventral hernia - wound vac - TOTAL ABDOM HYSTERECTOMY 1990 ELIAN/BSO for fibroids FAMILY HISTORY Problem Relation Age of Onset - Hypertension Mother - other (Lung Disease) Father Social History Marital status: Spouse name: Christopher Years of education: Number of children: 2 Occupational History 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 TO AFFECTED AREA. levothyroxine (SYNTHROID) 75 mcg tablet hydrochlorothiazide (HYDRODIURIL, ESIDRIX) 25 mg tablet estradiol (ESTRACE) 1 mg tablet Take 1 mg by mouth once dot y. sertraline (ZOLOFT) 50 mg tablet Take 50 mg by mouth once da karley. No current facility-administered medications for this visit. Allergies As of Date: 12/22/2017 Allergen Noted Reaction CODEINE 06/19/2014 Vomiting ERYTHROMYCIN 06/19/2014 Vomiting LEVAQUIN [LEVOFLOXACIN] 01/18/2015 Vomiting LIPITOR [ATORVASTATIN CALCIUM] 01/18/2015 Myalgia SULFA (SULFONAMIDE ANTIBIOTICS) 01/18/2015 Rash and GI Upset TRAMADOL 01/18/2015 Vomiting ZAROXOLYN [METOLAZONE] 01/18/2015 Other: See Comments Fully Assessed 03/05/2017 REVIEW OF SYSTEMS Abdomen: no pain Bladder: dysuria .. Expanded ROS: GENERAL: Negative for fever Allergies and current medication updated:Yes EXAM: BP 140/82 Wt 259 lb (117.5kg) GENERAL: pleasant, female in no apparent distress HEENT: Normocephalic and atraumatic NECK: full range of motion DERMATOLOGY: Normal, without lesions, non-icteric and non-hi rsute PELVIC: normal Bartholin's glands, urethra, [place]'s glands, no cervical lesions, good vaginal support, physiologic discharge present , labial agglutination- erythema and excoriations noted- appears c/w LS. NEURO: alert and oriented x3,exam grossly non-focal EXTREMITIES: normal ASSESSMENT AND PLAN: Encounter Diagnosis ICD-10-CM 1. Vulvar irritation N90.89 2. Encounter for screening mammogram for malignant tressa plasm of breast Z12.31 [facility] SCREENING 3. Lichen sclerosus et atrophicus L90.0 4. Vulvar pain R10.2 3. Clobetasol reordered- apply BID x 4 weeks the n weekly - if worsening or no improvement notify office. 4. Vulvar hygiene reviewed 5. RTO yearly exam as scheduled in january Lizette Saini MD Referring Provider: SELF [[id number]] Allergies As of Date: 12/22/2017 Noted Allergy Reaction CODEINE 06/19/2014 11 - Vomiting ERYTHROMYCIN 06/19/2014 11 - Vomiting LEVAQUIN (LEVOFLOXACIN) 01/18/2015 11 - Vomiting LIPITOR (ATORVASTATIN CALCIUM) 01/18/2015 17 - Myalgia SULFA (SULFONAMIDE ANTIBIOTICS) 01/18/2015 2 - Rash 8 - GI Upset TRAMADOL 01/18/2015 11 - Vomiting ZAROXOLYN (METOLAZONE) 01/18/2015 14 - Other: See Comments Comments: depletes K+ Date Reviewed: 12/22/2017 Reviewed by: Pavithra Vora Ma - Fully Assessed Reason for Visit: Vaginal Problem [117] Primary Visit Diagnosis:Vulvar irritation [N90.89] Other Visit Diagnoses:Encounter for screening mammogram for malignant neoplasm of breast [Z12.31] Lichen sclerosus et atrophicus [L90.0] Vulvar pain [R10.2] Order(s):[facility] SCREENING [[id number]] Order #: [id number] FUTURE clobetasol (TEMOVATE) 0.05 % ointmentApply 1 application to affected area twice daily. TO AFFECTED AREA.Disp: 30 gRfl: 1 Prescriptions as of 12/22/2017 Sig: CLOBETASOL 0.05 % TOPICAL OIN* Apply 1 application to affect * LEVOTHYROXINE 75 MCG TABLET HYDROCHLOROTHIAZIDE 25 MG TAB* ESTRADIOL 1 MG TABLET Take 1 mg by mouth once daily. SERTRALINE 50 MG TABLET Take 50 mg by mouth once dot* Problem List As Of Date 12/22/2017 Noted Resolved Overactive bladder [N32.81] INVALID FOR* More... 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 TO AF FECTED AREA. Medications Discontinued During This Encounter clobetasol (TEMOVATE) 0.05 % ointment 15 g 1 11/24/20172017 Route: TOPICAL Sig: Apply 1 application to affected area twice daily. TO AF FECTED AREA. Disc: Reason for discontinue is not on file. Encounter Status:Closed by LIZETTE ROMEO MD on 12/22/17 Encounters Date Type Reason Provider Location 04-19-2018 - Patient encounter EMILY (CECI) [facility] 04-20-2018 procedure Montiel ([phone]) 01-07-2018 - Patient encounter LIZETTE candelario [facility] 01-08-2018 procedure OUSMANE Montiel ([id number] [phone]) [facility] ROMEO 12-22-2017 - Patient encounter [facility] 12-23-2017 procedure OUSMANE Montiel (0000 0) Summary Purpose Family History No Family History Records Found Advance Directives No Advanced Directives Records Found Additional Source Comments FOR RECORDS PERTAINING TO PATIENTS WHO ARE OR HAVE BEEN ENROLLED IN A CHEMICAL DEPENDENCY/SUBSTANCE ABUSE PROGRAM, SOME INFORMATION MAY BE OMITTED. This clinical summary was aggregated from multiple sources. Caution should be exercised in using it in the provision of clinical care. This summary normalizes information from multiple sources, and as a consequence, information in this document may materially changethe coding, format and clinical context of patient data. In addition, data may be omittedin some cases. CLINICAL DECISIONS SHOULD BE BASED ON THE PRIMARY CLINICAL RECORDS. [facility] provides no warranty or guarantee of the accuracy or completeness of information in this document. UNRECOGNIZED CONTENT PROVIDED BELOW FOR UNRECOGNIZED SECTION INFORMATION SOURCE DATE CREATED AUTHOR AUTHOR'S ORGANIZATIO N 05/01/2018 [facility]
== END ==
PROVIDERS: PCP Family Medicine; Referring Provider Nurse Practitioner Women's Health; Visit Provider Nurse Practitioner Women's Health
DX: Z12.31 Encounter for screening mammogram for malignant neoplasm of breast (principal)
CPT/HCPCS: 77063; 77067

== ENCOUNTER → 2020-03-22 | Outpatient (CLI) | payer SELFPAY ==
[2019-06-23 08:17] VITALS: BMI 45.1
== END | disposition home or self-care (01) ==
PROVIDERS: PCP Family Medicine; Referring Provider Family Medicine; Visit Provider Family Medicine
DX: N39.0 Urinary tract infection, site not specified (principal)
CPT/HCPCS: 87077; 87086; 87088; 87186

== ENCOUNTER → 2020-07-16 14:12 | Outpatient (CLI) | payer OTHER, SELFPAY ==
[2020-06-28 08:09] VITALS: BMI 42.2
[2020-07-16 18:38] LABS: AST(SGOT) 26 U/L (15-37); Alanine Aminotransfer ALT/SGPT 28 U/L (13-56); Albumin, Serum 3.7 g/dL (3.2-5.0); Alkaline Phosphatase 108 U/L (45-117); Anion Gap 5 (5-15); BUN 14 mg/dL (7-18); Bilirubin, Direct 0.12 mg/dL (0.00-0.30); Calcium,Total 9.3 mg/dL (8.5-10.1); Chloride 103 mmol/L (98-107); Cholesterol 221 mg/dL (200); Creatinine, Serum 0.87 mg/dL (0.55-1.02); EST Glomerular Filtration Rate 71 mL/min (>60); Est Glom Filt Rate - Afr Amer 85 mL/min (>60); Globulin 4.1 g/dL (2.2-4.2); Glucose 130 mg/dL (74-106); High Density Lipoprotein 50 mg/dL; Potassium 3.7 mmol/L (3.5-5.1); Protein, Total 7.8 g/dL (6.4-8.2); Sodium Level 136 mmol/L (136-145); Thyroid Stim Hormone (TSH) 1.19 uIU/mL (0.358-3.74); Triglycerides 440 mg/dL
== END ==
PROVIDERS: PCP Family Medicine; Visit Provider Family Medicine
DX: E03.9 Hypothyroidism, unspecified (principal); E11.9 Type 2 diabetes mellitus without complications
CPT/HCPCS: 36415; 80048; 80061; 80076; 84443

== ENCOUNTER → 2020-10-04 07:04 | Outpatient (CLI) | payer OTHER, SELFPAY ==
[2020-06-28 08:09] VITALS: BMI 42.2
--- NOTE | 2020-10-04 07:06 | BI_ITS ---
MAMMOGRAPHY - BILATERAL SCREENING REASON FOR EXAM: Female, 59 years old. Routine annual screening examination. PERTINENT HISTORY: Non-contributory. Remote right stereotactic breast biopsy. TECHNIQUE: Digital bilateral breast tracy (3D mammographic acquisition) in the CC and MLO projections. 2-D mediolateral oblique (MLO) and craniocaudad (CC) views of both breasts were obtained. CAD: Full Field Digital Mammography with Computer Added Detection was performed. COMPARISON: Comparison is made with prior study dated 09/07/2019 and 12/27/2015. FINDINGS: Breast Composition: The breasts are almost entirely fatty. There are no dominant masses or suspicious calcifications. Stable benign-appearing bilateral axillary lymph nodes. No other significant abnormalities are identified. There has been no significant change since the prior study. BI/SCRN MAMM (CAD)W/TRACY BILAT IMPRESSION: Stable bilateral screening mammogram. Yearly follow-up mammogram recommended. (A) ASSESSMENT CATEGORY: BIRADS Category 2: Benign. A letter regarding these results will be sent to the patient by the facility within 30 days. Approximately 10% of breast cancers are not detected by mammography. A normal mammogram should not delay biopsy of a clinically suspicious abnormality. [id number] Electronically Signed: Florentin Zhang MD at 8:57 EDT , Service support ,
== END ==
PROVIDERS: PCP Family Medicine; Referring Provider Nurse Practitioner Women's Health; Visit Provider Nurse Practitioner Women's Health
DX: Z12.31 Encounter for screening mammogram for malignant neoplasm of breast (principal)
CPT/HCPCS: 77063; 77067

== ENCOUNTER → 2020-12-27 | Outpatient (CLI) | payer OTHER, SELFPAY | END | disposition home or self-care (01) | LOC: LABSPEC 12:42 | PROVIDERS: PCP Family Medicine; Referring Provider Family Medicine; Visit Provider Family Medicine | DX: U07.1 COVID-19 (principal) | CPT/HCPCS: 87635; U0005; U0003 ==

== ENCOUNTER 2021-01-01 09:39 | Inpatient (IN) | payer OTHER, SELFPAY ==
[2021-01-01] VITALS (23 sets, daily range): BP systolic 119–143; BP diastolic 57–81; PULSE 71–96; RESP 17–31; TEMP 35.7–37; O2SAT 83–99; BMI 40.8; BMI 41.7
--- NOTE | 2021-01-01 10:01 | EKG12_ITS ---
Test Reason : SOB Blood Pressure : / mmHG Vent. Rate : 085 BPM Atrial Rate : 085 BPM P-R Int : 190 ms QRS Dur : 092 ms QT Int : 396 ms P-R-T Axes : 036 -06 012 degrees QTc Int : 471 ms Sinus rhythm with frequent Premature ventricular complexes Possible Inferior infarct , age undetermined Abnormal ECG Confirmed by SUKHDEEP MICHELLE, ELISA ([id number]), fashion editor RAMESH SANDS ([id number]) on 01/03/2021 8:39:14 AM Referred By: KAROL Confirmed By:ELISA TARANGO MD
--- NOTE | 2021-01-01 10:02 | EDS_ITS ---
HPI History of Present Illness Chief Complaint: Shortness of Breath Informant: patient Narrative Narrative: Patient is 60-year-old female with history of diabetes, asthma, obstructive sleep apnea, hypertension, hyperlipidemia and hypothyroid presenting for worsening shortness of breath. Patient started having symptoms on 12/21 and was diagnosed with Covid on 12/27. She states has had nausea, headache, myalgias, cough that is intermittently productive and shortness of breath. She notes it hurts to breathe. She states her sputum is intermittently productive of dark aguirre white frothy sputum. She took 8 mg of Zofran at 6 AM and continue still very nauseous. She denies any change in her bowel habits. She does not wear oxygen at home but was hypoxic requiring supplemental oxygen upon arrival. Patient did not receive any infusion of monoclonal antibodies. No other complaints at this time. [facility] Medical History (Updated 01/01/21 @ 15:[address] Mary Viveros DO) Diabetes type 2, controlled Lichen sclerosus Home Medications sertraline 50 mg PO QHS 03/31/14 [History Last Taken 12/31/20 22:00] levothyroxine 75 mcg PO DAILY 01/19/15 [History Last Taken 12/31/20 09:00] estradiol 1 mg tablet 1 mg PO DAILY #30 tab 07/15/18 [Rx Last Taken 12/31/20 09:00] Allergy/AdvReac Type Severity Reaction Status Date / Time atorvastatin calcium AdvReac Intermediate Other Verified 01/01/21 10:26 [From Lipitor] erythromycin base AdvReac Intermediate Vomiting Verified 01/01/21 10:26 levofloxacin [From Levaquin] AdvReac Intermediate Nausea/Vom/ Verified 01/01/21 10:26 Diarrhea codeine AdvReac Vomiting Verified 01/01/21 10:26 hydrocodone bitartrate AdvReac Nausea/Vom/ Verified 01/01/21 10:26 [From Vicodin] Diarrhea metolazone [From Zaroxolyn] AdvReac Other Verified 01/01/21 10:26 Sulfa (Sulfonamide AdvReac Vomiting Verified 01/01/21 10:26 Antibiotics) tramadol AdvReac Vomiting Verified 01/01/21 10:26 Family History Mother Hypertension Father Lung disease Surgical History bowel blockage H/O: hysterectomy hernia repair with mesh mesh removal partial bowel removal Puncture wound of small intestine, open Social History adopted: No household members: spouse number of children: 2 current occupational status: unemployed sexually active: Yes Smoking Status: Never smoker alcohol intake: never substance use type: does not use well-balanced diet: about half the time caffeine: Yes (5 cups q day) what type of physical activity do you participate in: none seatbelt use: always do you feel safe at home: Yes additional social history: 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 ROS ROS ED Constitutional Constitutional ED: Reports chills; Denies fever(s) Eyes Eyes: Denies blurry vision or change in vision ENT ENT ED: Reports other Details: Nasal congestion ; Denies ear pain or rhinorrhea Cardiovascular Cardiovascular: Reports chest pain; Denies palpitations or racing heartbeat Respiratory/Chest Respiratory/Chest: Reports cough, dyspnea, dyspnea on exertion and sputum Gastrointestinal Gastrointestinal: Reports abdominal pain and nausea; Denies diarrhea or vomiting Genitourinary Genitourinary ED: Reports urinary frequency; Denies dysuria or hematuria Musculoskeletal Musculoskeletal: Reports myalgias; Denies arthralgias Integumentary Denies rash Neurologic Neurologic: Reports headache(s) and weakness Psychiatric Psychiatric: Denies anxiety or depression EXAM Physical Exam Const Vital Signs: 01/01/21 09:40 01/01/21 10:22 01/01/21 10:23 Temperature 96.8 F L 98.6 F Temperature Source Temporal Temporal Pulse Rate 80 93 Respiratory Rate 24 H 17 Respiratory Effort Short of Breath Labored Respiratory Depth Deep Respiratory Pattern Tachypnea Blood Pressure 139/70 H 139/70 H Blood Pressure Mean 93 93 Pulse Ox 83 91 Oxygen Delivery Method Room Air Nasal Cannula Nasal Cannula Oxygen Flow Rate (L/min) 4 4 01/01/21 12:24 Temperature 96.2 F L Temperature Source Temporal Pulse Rate 87 Respiratory Rate 26 H Respiratory Effort Respiratory Depth Respiratory Pattern Blood Pressure 137/71 H Blood Pressure Mean 93 Pulse Ox 88 Oxygen Delivery Method Nasal Cannula Oxygen Flow Rate (L/min) 6 Positive well nourished, well developed and obese General Appearance ED: well developed Nutritional Appearance: obese HEENT Reports TM's clear and dry mucous membranes atraumatic Tympanic Membrane ED: Yes TM's clear Mouth ED: Yes dry mucous membranes Mouth: dry mucous membranes Eyes PERRL and EOMs intact bilaterally Neck no lymphadenopathy, supple, no meningeal signs and no JVD Resp normal respiratory effort Resp Narrative: Scattered crackles throughout Auscultation: diminished lung sounds Cardio regular rate, regular rhythm and no murmurs GI non-tender and non-distended Auscultation: normoactive bowel sounds Palpation: soft Back/Spine no CVA tenderness and normal to inspection Extremity normal to inspection General Extremety ED: Negative for edema or tenderness General Extremity: Negative for edema Neuro oriented x3 and no sensory deficits noted Sensorium / Orientation: alert Motor Exam: general weakness Psych mental status grossly normal Skin Lesions: no lesions Rashes: no rashes MDM MDM MDM Narrative Medical decision making narrative: Patient evaluated for increased shortness of breath and worsening symptoms since being diagnosed with COVID-19 infection. She is requiring submental oxygen initially of 6 L. While in the ER she has increased O2 demands. I suspect this is all secondary to Covid however work-up with D-dimer is obtained to look for signs of PE. This is negative. Chest x- ray is consistent with COVID-19 pneumonia. Her procalcitonin is normal and I do not suspect a secondary bacterial pneumonia. She has normal white blood cell count. Inflammatory markers are elevated which is consistent again with her COVID-19 infection. Given her high O2 requirements she will be admitted to the ICU because of my concern for increased risk of sudden clinical deterioration. Patient's lactate is elevated by suspect this is from hypoxia and I do not think this is infectious in nature. I do not think she has sepsis. Lab Data Attestation: I reviewed the patient's lab results. Labs: Laboratory Results - last 24 hr 01/01/21 01/01/21 01/01/21 10:30 10:30 10:30 WBC 7.2 RBC 4.45 Hgb 13.8 Hct 40.3 MCV 90.6 MCH 31.0 MCHC 34.2 RDW Std Deviation 40.0 RDW Coeff of Yves 12.1 Plt Count 238 MPV 10.5 Immature Gran % (Auto) 0.400 Neut % (Auto) 73.5 H Lymph % (Auto) 21.8 [place] % (Auto) 3.9 Eos % (Auto) 0.1 Baso % (Auto) 0.3 Absolute Neuts (auto) 5.3 Absolute Lymphs (auto) 1.57 Nucleated RBC % 0 Fibrinogen 710 H D-Dimer Quant (PE/DVT) 0.37 Sodium 140 Potassium 3.4 L Chloride 103 Carbon Dioxide 26.0 Anion Gap 11 BUN 7 Creatinine 0.68 Estim Creat Clear Calc 70.45 Est GFR (MDRD) Af Amer 113 Est GFR (MDRD) Non-Af 94 BUN/Creatinine Ratio 10.3 Glucose 212 H Lactic Acid Calcium 9.1 Total Bilirubin 0.60 AST 31 ALT 28 Alkaline Phosphatase 175 H Lactate Dehydrogenase 291 H Total Creatine Kinase 76 Troponin I High Sens 6 C-React Prot Ext Range 59.30 H Total Protein 8.2 Albumin 2.8 L Globulin 5.4 H Albumin/Globulin Ratio 0.5 L Procalcitonin 01/01/21 01/01/21 01/01/21 10:30 10:30 10:30 WBC RBC Hgb Hct MCV MCH MCHC RDW Std Deviation RDW Coeff of Yves Plt Count MPV Immature Gran % (Auto) Neut % (Auto) Lymph % (Auto) [place] % (Auto) Eos % (Auto) Baso % (Auto) Absolute Neuts (auto) Absolute Lymphs (auto) Nucleated RBC % Fibrinogen D-Dimer Quant (PE/DVT) Sodium Potassium Chloride Carbon Dioxide Anion Gap BUN Creatinine Estim Creat Clear Calc Est GFR (MDRD) Af Amer Est GFR (MDRD) Non-Af BUN/Creatinine Ratio Glucose Lactic Acid 2.1 H* Calcium Total Bilirubin AST ALT Alkaline Phosphatase Lactate Dehydrogenase Total Creatine Kinase Troponin I High Sens C-React Prot Ext Range Total Protein Albumin Globulin Albumin/Globulin Ratio Procalcitonin 0.04 Cancelled Radiography Chest X-Ray - ED: 1 View, Read by ED Physician, Read by Radiologist, Right Infiltrate and Left Infiltrate Diagnostic Testing: Radiology Impression Chest X-Ray 01/01/21 10:39 IMPRESSION: Patchy bilateral pulmonary infiltrates worse in the left hemithorax. 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
[2021-01-01] MEDS: Metoclopramide 10 MG/2 ML Vial 5 MG IV (10:32)
--- NOTE | 2021-01-01 10:39 | RAD_ITS ---
STUDY: X-RAY CHEST REASON FOR EXAM: Female, 60 years old. Shortness of breath and cough. Covid positive. TECHNIQUE: Single AP portable view of the chest. COMPARISON: Comparison is made with prior study 01/09/2017. FINDINGS: EKG electrodes are seen. Patchy bilateral pulmonary infiltrates worse in the left hemithorax. There is no demonstrated pleural abnormality. Normal size heart. Normal mediastinum and broderick. Normal visualized pulmonary arteries. Normal visualized aortic arch and descending thoracic aorta. There are degenerative changes of the visualized thoracic spine. Normal visualized ribs, clavicles, and shoulders. There is no demonstrated abnormality of the visualized soft tissue structures of the upper abdomen. RAD/Chest 1 View (Portable) IMPRESSION: Patchy bilateral pulmonary infiltrates worse in the left hemithorax. Electronically Signed: Florentin Zhang MD at 11:07 EDT , Service support ,
[2021-01-01 10:49] LABS: Absolute Lymphocyte Count 1.57 X10^3/uL (0.83-4.51); Absolute Neutrophil Count 5.3 X10^3/uL (2.0-7.7); Basophil# 0.02 X10^3/uL; Basophil% 0.3 % (0-1); Eosinophil# 0.01 X10^3/uL; Eosinophils% 0.1 % (0-5); Hematocrit 40.3 % (37-47); Hemoglobin 13.8 g/dL (12.0-15.0); Lymphocyte # 1.57 X10^3/ul (0.83-4.51); Lymphocyte % 21.8 % (19-41); Mean Corp Hgb Conc 34.2 g/dL (32-36); Mean Corpuscular Volume 90.6 fL (81-99); Mean Platelet Vol. 10.5 fl (6.2-12.0); Monocyte# 0.28 X10^3/uL; Monocyte% 3.9 % (0-10); NRBC Flagged by Analyzer 0 % (0-5); Neutrophil % 73.5 % (47-70); Platelet Count 238 K/mm3 (150-450); RBC Distribution Width CV 12.1 % (11.6-14.6); Red Blood Count 4.45 M/mm3 (4.2-5.4); White Blood Count 7.2 K/mm3 (4.4-11.0)
[2021-01-01 11:00] LABS: D-Dimer Quantitative (DVT/PE) 0.37 FEU/ug/m (0.27-0.49)
[2021-01-01 11:08] LABS: ALB/GLOB Ratio 0.5 RATIO (0.9-2.4); AST(SGOT) 31 U/L (15-37); Alanine Aminotransfer ALT/SGPT 28 U/L (13-56); Albumin, Serum 2.8 g/dL (3.2-5.0); Alkaline Phosphatase 175 U/L (45-117); Anion Gap 11 (5-15); BUN 7 mg/dL (7-18); BUN/Creat Ratio 10.3 RATIO (10-20); CPK Total, Creatine Kinase 76 U/L (26-192); Calcium,Total 9.1 mg/dL (8.5-10.1); Chloride 103 mmol/L (98-107); Creatinine, Serum 0.68 mg/dL (0.55-1.02); EST Glomerular Filtration Rate 94 mL/min (>60); Est Glom Filt Rate - Afr Amer 113 mL/min (>60); Estimated Creatinine Clearance 70.45 ml/min; Globulin 5.4 g/dL (2.2-4.2); Glucose 212 mg/dL (74-106); LDH 291 U/L (84-246); Potassium 3.4 mmol/L (3.5-5.1); Protein, Total 8.2 g/dL (6.4-8.2); Sodium Level 140 mmol/L (136-145); Troponin-I HS 6 pg/mL (3.0-54.0)
[2021-01-01 11:10] LABS: Fibrinogen 710 mg/dl (203-444)
[2021-01-01 11:11] LABS: Lactic Acid 2.1 mmol/L (0.4-1.9)
[2021-01-01 11:47] LABS: Procalcitonin 0.04 ng/mL (0.00-0.09)
--- NOTE | 2021-01-01 13:03 | NURSING ---
ICU RUFINA KING, HYPOXIA
[2021-01-01] MEDS: dexAMETHasone 4 MG Tablet 6 MG PO (13:12)
--- NOTE | 2021-01-01 13:16 | NURSING ---
ICU 6
--- NOTE | 2021-01-01 13:31 | PCS.PANDOC ---
PANDEMIC DOCUMENTATION INITIATED: Date: 11/19/2020 Time: 190
[2021-01-01] MEDS: Enoxaparin 40 MG/0.4 ML Syringe SC ×2 (14:19→21:00)
[2021-01-01 14:41] LABS: Reflex Lactate? Y
--- NOTE | 2021-01-01 15:02 | EX.PCM.CONCC ---
Assessment & Plan Assessment/Plan (1) Asthma: (2) RODRIGO (obstructive sleep apnea): (3) Abdominal wall fistula: PLAN: RECOMMENDATIONS: 1. Continue CPAP 10 cm of water with sleep 2. Wean supplemental oxygen as tolerated 3. Initiate Decadron therapy. Not a candidate for PEDRO or Remdesivir therapy 4. Increase basal insulin 5. Encourage incentive spirometer, Acapella, out of bed and prone positioning as tolerated 6. Diuresis as tolerated by labs 7. Use bronchoscope if necessary for intubation IMPRESSIONS: 1. Acute hypoxic respiratory insufficiency secondary to COVID-19 Patient's D-dimer and pro calcitonin are within normal limits. Likelihood of concomitant PE and bacterial infection are relatively low. Unfortunately, patient is delayed in presentation at 11 days, so remdesivir and PEDRO therapy have been proven less effective. Patient should be placed on Decadron therapy. We will have to watch blood sugars closely. Patient does have a history of being a difficult intubation. We will continue to watch in the intensive care unit as patient may require advanced airway assistance if necessary. Patient did confirm she is a full code. We will add vitamin C and zinc. Okay to initiate bronchodilators if patient develops wheezing. 2. Diabetes mellitus Patient not currently on insulin therapy, but given the Decadron has come to be using, high clinical suspicion that basal insulin will be required. 3. RODRIGO/hypertension/hyperlipidemia/morbid obesity/extensive abdominal wall surgeries/nonvaccinated status/supplemental hormone therapy Complicates care, management, recovery and prognosis. Okay to continue with statin therapy from my perspective. Okay to continue with baseline antihypertensive medications from my perspective. Would not recommend continuation of hormonal therapy as patient is already at high risk for thrombotic complications given COVID-19. HPI Consult Data Date of Consult: 01/01/21 HPI Narrative HPI Narrative: MADDY BENEDICT is a 60 F, with past medical history listed below, who presents to [facility] on 01/01/2021 secondary to progressive shortness of breath. Patient had also had some nausea, headache, myalgias and diarrhea. Patient states that symptoms started on 12/21/2020 and patient was formally diagnosed with COVID-19 on 12/27/2020. Patient had reported some pleuritic type chest pains that she associates with persistent cough. Cough is productive of dark yellow to white frothy sputum. Patient continues to have nausea despite Zofran therapy. Patient does report a history of asthma with intermittent albuterol use, but is never required supplemental oxygen previously. Patient is unvaccinated against COVID-19 and did not receive any monoclonal antibodies. In the ER, patient was afebrile, but tachypneic at 24 breaths/min. Patient was noted to be 83% on room air and slightly hypertensive. Laboratory work-up showed a white blood cell count of 7.2 with 22% lymphocytes, elevated fibrinogen of 710, but normal D-dimer. Patient did have lower potassium of 3.4 and normal renal function. Glucose was elevated to 212 and lactate was elevated at 2.1. Alkaline phosphatase was slightly elevated at 175, but other LFTs were within normal range. Patient CRP was elevated at 60 and pro calcitonin was within normal limits. Patient was transferred to the intensive care unit for further evaluation. Since being the intensive care unit, patient reports she feels subjectively slightly improved compared to previous. Patient is not reporting any current chest pain, but has had some nausea. Patient denies any syncope or trauma. Patient denies any history of smoking. Patient does report that she has obstructive sleep apnea and typically uses a CPAP of 10 cm of water with a nasal interface. Patient has not required supplemental oxygen in the past, but does state that she has had extensive mesh issues with her abdominal wall. Patient believes this makes it impossible for her to lie in a prone position. Patient also states that she has been told that she has a very small airway and has required fiberoptic intubations in the past with pediatric tubes. 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 Patient reports that her diabetes is relatively well controlled. Patient is on hormone replacement therapy. Review of systems otherwise negative from a constitutional, HEENT, respiratory, cardiovascular, GI, genitourinary, musculoskeletal, skin, neurologic, psychiatric and hematologic system unless stated above. [facility] Medical History (Updated 01/01/21 @ 10:23 by Meredith Nova) Diabetes type 2, controlled Lichen sclerosus Home Medications sertraline 50 mg PO QHS 03/31/14 [History Last Taken 12/31/20 22:00] levothyroxine 75 mcg PO DAILY 01/19/15 [History Last Taken 12/31/20 09:00] estradiol 1 mg tablet 1 mg PO DAILY #30 tab 07/15/18 [Rx Last Taken 12/31/20 09:00] Allergy/AdvReac Type Severity Reaction Status Date / Time atorvastatin calcium AdvReac Intermediate Other Verified 01/01/21 10:26 [From Lipitor] erythromycin base AdvReac Intermediate Vomiting Verified 01/01/21 10:26 levofloxacin [From Levaquin] AdvReac Intermediate Nausea/Vom/ Verified 01/01/21 10:26 Diarrhea codeine AdvReac Vomiting Verified 01/01/21 10:26 hydrocodone bitartrate AdvReac Nausea/Vom/ Verified 01/01/21 10:26 [From Vicodin] Diarrhea metolazone [From Zaroxolyn] AdvReac Other Verified 01/01/21 10:26 Sulfa (Sulfonamide AdvReac Vomiting Verified 01/01/21 10:26 Antibiotics) tramadol AdvReac Vomiting Verified 01/01/21 10:26 Family History Mother Hypertension Father Lung disease Surgical History bowel blockage H/O: hysterectomy hernia repair with mesh mesh removal partial bowel removal Puncture wound of small intestine, open Social History adopted: No household members: spouse number of children: 2 current occupational status: unemployed sexually active: Yes Smoking Status: Never smoker alcohol intake: never substance use type: does not use well-balanced diet: about half the time caffeine: Yes (5 cups q day) what type of physical activity do you participate in: none seatbelt use: always do you feel safe at home: Yes 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 ROS ROS Narrative See HPI Physical Exam Const alert, oriented x3 and no apparent distress Constitutional Narrative: On nasal cannula oxygen General Appearance: cooperative, well developed, in distress Positive for mild and appears older than stated age Nutritional Appearance: morbidly obese HEENT normocephalic, head/scalp atraumatic and moist oral mucous membranes Eyes PERRL and EOMs intact bilaterally Neck full ROM and no lymphadenopathy Chest inspection of chest normal Chest: symmetrical chest wall rise; Negative for crepitus Resp Effort and Inspection: able to speak in complete sentences and actively coughing non-productive Auscultation: diminished lung sounds; Negative for rales, rhonchi or wheezes Percussion: Negative for dullness Cardio regular rate, regular rhythm, S1 normal heart sound, S2 normal heart sound, no murmurs, no rub and no gallops GI normal to inspection, nondistended, normoactive bowel sounds Inspection: central obesity and striae no CVA tenderness Extremity no clubbing, cyanosis or edema Skin no rashes or lesions noted Neuro oriented x3, CN's II-XII intact bilaterally, moves all extremities and no focal motor deficits Psych cooperative and affect normal Lab / Micro Data Result Diagrams: 01/01/21 10:30 01/01/21 10:30 Labs: Laboratory Results - last 24 hr 01/01/21 10:30: WBC 7.2, RBC 4.45, Hgb 13.8, Hct 40.3, MCV 90.6, MCH 31.0, MCHC 34.2, RDW Std Deviation 40.0, RDW Coeff of Yves 12.1, Plt Count 238, MPV 10.5, Immature Gran % (Auto) 0.400, Neut % (Auto) 73.5 H, Lymph % (Auto) 21.8, [place] % (Auto) 3.9, Eos % (Auto) 0.1, Baso % (Auto) 0.3, Absolute Neuts (auto) 5.3, Absolute Lymphs (auto) 1.57, Nucleated RBC % 0 01/01/21 10:30: Fibrinogen 710 H, D-Dimer Quant (PE/DVT) 0.37 01/01/21 10:30: Sodium 140, Potassium 3.4 L, Chloride 103, Carbon Dioxide 26.0, Anion Gap 11, BUN 7, Creatinine 0.68, Estim Creat Clear Calc 70.45, Est GFR (MDRD) Af Amer 113, Est GFR (MDRD) Non-Af 94, BUN/Creatinine Ratio 10.3, Glucose 212 H, Calcium 9.1, Total Bilirubin 0.60, AST 31, ALT 28, Alkaline Phosphatase 175 H, Lactate Dehydrogenase 291 H, Total Creatine Kinase 76, Troponin I High Sens 6, C-React Prot Ext Range 59.30 H, Total Protein 8.2, Albumin 2.8 L, Globulin 5.4 H, Albumin/Globulin Ratio 0.5 L 01/01/21 10:30: Lactic Acid 2.1 H* 01/01/21 10:30: Procalcitonin 0.04 01/01/21 10:30: Procalcitonin Cancelled Radiology Impression Chest X-Ray 01/01/21 10:39 IMPRESSION: Patchy bilateral pulmonary infiltrates worse in the left hemithorax. Electronically Signed: Florentin Zhang MD at 11:07 EDT , Service support , Charges/Coding Visit Charges Inpatient E&M: 76510 Init Hosp L3
[2021-01-01] MEDS: guaiFENesin 1,200 MG Tablet 1200 MG PO ×2 (15:07→21:00)
[2021-01-01] MEDS: 0.9% Saline Lock 10 ML Syringe IV (15:07)
[2021-01-01 15:55] LABS: Lactic Acid 1.6 mmol/L (0.4-1.9)
[2021-01-01 16:09] LABS: Magnesium 2.1 mg/dL (1.6-2.6); Phosphorus 3.1 mg/dL (2.5-4.9)
[2021-01-01] MEDS: Ascorbic Acid 500 MG Tablet 1000 MG PO (16:19)
[2021-01-01] MEDS: Potassium Chloride Oral Tablet 20 MEQ 40 MEQ PO (16:19)
[2021-01-01] MEDS: Insulin Lispro 100 UNIT/ML INSULN.PEN SC ×2 (16:43→21:00)
--- NOTE | 2021-01-01 17:30 | HP.PCM.HOS_ITS ---
HPI - General General Date of Admission: 01/01/21 Date of Service: 01/01/21 Chief Complaint: Shortness of breath HPI Narrative MADDY BENEDICT, is a 60 F who presented to the emergency department [facility] on 01/01/2021 with a chief complaint of shortness of breath. She also complained of nausea, headache, myalgias, and diarrhea on presentation. She indicates her symptoms started on 12/21/2020 and was diagnosed with COVID-19 on 12/27/2020. She has been at home up until this point. She did not receive monoclonal antibodies upon diagnosis. In the emergency department she was tachypneic and her oxygen saturation was 83% on room air and improved to 92 on 5 L supplemental oxygen. Her CBC was overall unimpressive. She had an elevated fibrinogen but a normal D-dimer. Her lactic acid was mildly elevated at 2.1 and I suspect this is most likely related to hypoxia. Her LFTs were overall normal. Her CRP is elevated at 60 and her procalcitonin was within normal limits. She has a history of difficult intubation and has required intubation with a pediatric scope in the past. She was given Decadron in the emergency department and admitted to the ICU. [facility] Medical History (Updated 01/01/21 @ 15:[address] Mary Viveros, DO) Diabetes type 2, controlled Lichen sclerosus Home Medications sertraline 50 mg PO QHS 03/31/14 [History Last Taken 12/31/20 22:00] levothyroxine 75 mcg PO DAILY 01/19/15 [History Last Taken 12/31/20 09:00] estradiol 1 mg tablet 1 mg PO DAILY #30 tab 07/15/18 [Rx Last Taken 12/31/20 09:00] Allergy/AdvReac Type Severity Reaction Status Date / Time atorvastatin calcium AdvReac Intermediate Other Verified 01/01/21 10:26 [From Lipitor] erythromycin base AdvReac Intermediate Vomiting Verified 01/01/21 10:26 levofloxacin [From Levaquin] AdvReac Intermediate Nausea/Vom/ Verified 01/01/21 10:26 Diarrhea codeine AdvReac Vomiting Verified 01/01/21 10:26 hydrocodone bitartrate AdvReac Nausea/Vom/ Verified 01/01/21 10:26 [From Vicodin] Diarrhea metolazone [From Zaroxolyn] AdvReac Other Verified 01/01/21 10:26 Sulfa (Sulfonamide AdvReac Vomiting Verified 01/01/21 10:26 Antibiotics) tramadol AdvReac Vomiting Verified 01/01/21 10:26 Family History Mother Hypertension Father Lung disease Surgical History bowel blockage H/O: hysterectomy hernia repair with mesh mesh removal partial bowel removal Puncture wound of small intestine, open Social History adopted: No household members: spouse number of children: 2 current occupational status: unemployed sexually active: Yes Smoking Status: Never smoker alcohol intake: never substance use type: does not use well-balanced diet: about half the time caffeine: Yes (5 cups q day) what type of physical activity do you participate in: none seatbelt use: always do you feel safe at home: Yes 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 Constitutional Constitutional: Reports chills, fatigue, malaise and weakness; Denies anorexia, change in weight, fever(s), night sweats or other Eyes Eyes: Denies blurry vision, change in eye color, change in vision, discharge from eye(s), double vision, erythema, eye pain, loss of vision or other ENT HEENT: Reports headache(s); Denies abnormal hearing, dysphagia, ear pain, epistaxis, hearing loss, nasal congestion, nasal discharge, post nasal drip, sinus pressure, sore throat or other Cardiovascular Cardiovascular: Denies chest pain, claudication, dyspnea on exertion, edema, lightheadedness, orthopnea, palpitations, paroxysmal nocturnal dyspnea, rapid heart rate, syncope or other Respiratory/Chest Respiratory/Chest: Reports cough, dyspnea, productive cough, shortness of breath at rest and shortness of breath with exertion; Denies excessive phlegm production, hemoptysis, wheezing or other Gastrointestinal Gastrointestinal: Reports diarrhea, nausea and vomiting; Denies abdominal pain, coffee ground emesis, constipation, dyspepsia, hematemesis, hematochezia, loose stools, melena or other Genitourinary Genitourinary: Denies burning urination, difficulty urinating, dysuria, hematuria, nocturia, urinary frequency, urinary hesitancy, urinary incontinence, urinary urgency or other Musculoskeletal Musculoskeletal: Reports myalgias; Denies arthralgias, back pain, joint pain, joint stiffness, joint swelling, neck pain or other Neurologic Neurologic: Denies abnormal gait, abnormal speech, confusion, disequilibrium, dizziness, focal weakness, headache(s), numbness, paresthesias, seizure-like activity, seizures, syncope, tingling, tremor(s) or other Psychiatric Psychiatric: Denies anxiety, depression, homicidal ideation, suicidal ideation or other Endocrine Endocrinology: Denies change in body appearance, cold intolerance, excessive sweating, heat intolerance, polydipsia, polyuria or other Hematologic/Lymphatic Hematologic/Lymphatic: Denies anemia, easy bleeding, easy bruising, lymphadenopathy or other Allergic/Immunologic Allergic/Immunologic: Denies rhinitis, hives, eczemia, asthma or other Vital Signs Vital Signs Vital Signs: 01/01/21 09:40 01/01/21 10:22 01/01/21 10:23 Temperature 96.8 F L 98.6 F Temperature Source Temporal Temporal Pulse Rate 80 93 Respiratory Rate 24 H 17 Respiratory Effort Short of Breath Labored Respiratory Depth Deep Respiratory Pattern Tachypnea Blood Pressure 139/70 H 139/70 H Blood Pressure [BP] Blood Pressure Mean 93 93 Blood Pressure Mean [BP] Blood Pressure Source Blood Pressure Source [BP] Blood Pressure Position Blood Pressure Position [BP] Blood Pressure Location Blood Pressure Location [BP] Pulse Ox 83 91 Oxygen Delivery Method Room Air Nasal Cannula Nasal Cannula Oxygen Flow Rate (L/min) 4 4 01/01/21 12:24 01/01/21 13:19 01/01/21 13:20 Temperature 96.2 F L 96.2 F L Temperature Source Temporal Temporal Pulse Rate 87 82 Respiratory Rate 26 H 24 H Respiratory Effort Respiratory Depth Respiratory Pattern Blood Pressure 137/71 H 143/64 H Blood Pressure [BP] Blood Pressure Mean 93 90 Blood Pressure Mean [BP] Blood Pressure Source Blood Pressure Source [BP] Blood Pressure Position Blood Pressure Position [BP] Blood Pressure Location Blood Pressure Location [BP] Pulse Ox 88 96 99 Oxygen Delivery Method Nasal Cannula Nasal Cannula Nasal Cannula Oxygen Flow Rate (L/min) 6 8 8 01/01/21 13:54 01/01/21 13:55 01/01/21 14:00 Temperature 97.9 F Temperature Source Temporal Pulse Rate 80 82 82 Respiratory Rate 21 H 23 H Respiratory Effort Labored Respiratory Depth Shallow Respiratory Pattern Tachypnea Blood Pressure 136/75 H 133/74 H Blood Pressure [BP] Blood Pressure Mean 95 93 Blood Pressure Mean [BP] Blood Pressure Source Monitor Monitor Blood Pressure Source [BP] Blood Pressure Position Semi-Fowlers Semi-Fowlers Blood Pressure Position [BP] Blood Pressure Location Left Arm Left Arm Blood Pressure Location [BP] Pulse Ox 92 93 Oxygen Delivery Method Nasal Cannula Nasal Cannula Oxygen Flow Rate (L/min) 8 8 01/01/21 14:15 01/01/21 14:30 01/01/21 15:00 Temperature Temperature Source Pulse Rate 77 80 77 Respiratory Rate 22 H 21 H 27 H Respiratory Effort Respiratory Depth Respiratory Pattern Blood Pressure 135/72 H 137/66 H 132/74 H Blood Pressure [BP] Blood Pressure Mean 93 89 93 Blood Pressure Mean [BP] Blood Pressure Source Monitor Monitor Monitor Blood Pressure Source [BP] Blood Pressure Position Semi-Fowlers Semi-Fowlers Semi-Fowlers Blood Pressure Position [BP] Blood Pressure Location Left Arm Left Arm Right Arm Blood Pressure Location [BP] Pulse Ox 96 98 98 Oxygen Delivery Method Nasal Cannula Nasal Cannula Nasal Cannula Oxygen Flow Rate (L/min) 8 6 5 01/01/21 15:30 01/01/21 16:00 01/01/21 16:13 Temperature Temperature Source Pulse Rate 80 83 Respiratory Rate 21 H 23 H Respiratory Effort Labored Respiratory Depth Shallow Respiratory Pattern Tachypnea Blood Pressure 123/57 H Blood Pressure [BP] 138/81 H Blood Pressure Mean 79 Blood Pressure Mean [BP] 100 Blood Pressure Source Monitor Blood Pressure Source [BP] Monitor Blood Pressure Position Semi-Fowlers Blood Pressure Position [BP] Semi-Fowlers Blood Pressure Location Right Arm Blood Pressure Location [BP] Right Arm Pulse Ox 95 92 Oxygen Delivery Method Nasal Cannula Nasal Cannula Nasal Cannula Oxygen Flow Rate (L/min) 5 5 5 01/01/21 17:00 Temperature Temperature Source Pulse Rate 83 Respiratory Rate 22 H Respiratory Effort Respiratory Depth Respiratory Pattern Blood Pressure Blood Pressure [BP] 130/76 H Blood Pressure Mean Blood Pressure Mean [BP] 94 Blood Pressure Source Blood Pressure Source [BP] Monitor Blood Pressure Position Blood Pressure Position [BP] Semi-Fowlers Blood Pressure Location Blood Pressure Location [BP] Right Arm Pulse Ox 92 Oxygen Delivery Method Nasal Cannula Oxygen Flow Rate (L/min) 5 Weight Weight: 103.5 kg Body Mass Index (BMI) 41.7 Physical Exam Const alert, oriented x3 and no apparent distress Constitutional Narrative: Morbidly obese upper middle-aged white female lying in bed, appears comfortable at this time, currently on 5 L nasal cannula, nontoxic General Appearance: cooperative HEENT normocephalic, head/scalp atraumatic, hearing grossly normal bilaterally, moist oral mucous membranes and oropharynx normal HEENT Narrative: Mallampati 4, no thrush, good dentition Mouth: oral and palatal mucosa normal Eyes PERRL, EOMs intact bilaterally and conjunctivae normal Neck no lymphadenopathy, supple, no JVD and no carotid bruits Resp normal respiratory effort, no retractions and no use of accessory muscles Resp Narrative: Diffusely diminished but no adventitious sounds Auscultation: Negative for crackles, rales, rhonchi or wheezes Cardio regular rate, regular rhythm, S1 normal heart sound, S2 normal heart sound, no murmurs, no rub, no gallops, no clicks and no JVD GI normal to inspection, nondistended, normoactive bowel sounds, soft to palpation, non-tender and non-distended Extremity no clubbing, cyanosis or edema Skin no rashes or lesions noted, no wounds, skin turgor normal, no jaundice, no petechiae and no mottling Neuro oriented x3, CN's II-XII intact bilaterally, moves all extremities and no focal motor deficits Sensorium / Orientation: awake and alert Speech: speech normal Psych affect normal Results Lab / Micro Data Attestation: I reviewed the patient's lab results. Result Diagrams: 01/01/21 10:30 01/01/21 10:30 Labs: Laboratory Results - last 24 hr 01/01/21 10:30: WBC 7.2, RBC 4.45, Hgb 13.8, Hct 40.3, MCV 90.6, MCH 31.0, MCHC 34.2, RDW Std Deviation 40.0, RDW Coeff of Yves 12.1, Plt Count 238, MPV 10.5, Immature Gran % (Auto) 0.400, Neut % (Auto) 73.5 H, Lymph % (Auto) 21.8, [place] % (Auto) 3.9, Eos % (Auto) 0.1, Baso % (Auto) 0.3, Absolute Neuts (auto) 5.3, Absolute Lymphs (auto) 1.57, Nucleated RBC % 0 01/01/21 10:30: Fibrinogen 710 H, D-Dimer Quant (PE/DVT) 0.37 01/01/21 10:30: Sodium 140, Potassium 3.4 L, Chloride 103, Carbon Dioxide 26.0, Anion Gap 11, BUN 7, Creatinine 0.68, Estim Creat Clear Calc 70.45, Est GFR (MDRD) Af Amer 113, Est GFR (MDRD) Non-Af 94, BUN/Creatinine Ratio 10.3, Glucose 212 H, Calcium 9.1, Total Bilirubin 0.60, AST 31, ALT 28, Alkaline Phosphatase 175 H, Lactate Dehydrogenase 291 H, Total Creatine Kinase 76, Troponin I High Sens 6, C-React Prot Ext Range 59.30 H, Total Protein 8.2, Albumin 2.8 L, Globulin 5.4 H, Albumin/Globulin Ratio 0.5 L 01/01/21 10:30: Lactic Acid 2.1 H* 01/01/21 10:30: Procalcitonin 0.04 01/01/21 10:30: Procalcitonin Cancelled 01/01/21 10:30: Phosphorus 3.1, Magnesium 2.1 01/01/21 15:05: Lactic Acid 1.6 Micro: Microbiology 01/01/21 16:30 Urine, Clean Catch Legionella Antigen - Final 01/01/21 16:30 Urine, Clean Catch Streptococcus pneumoniae Antigen (M - Final Rhythm Strip Rhythm Strip: Sinus Rhythm Rate: 85 Ectopy: None Radiology Impression Chest X-Ray 01/01/21 10:39 IMPRESSION: Patchy bilateral pulmonary infiltrates worse in the left hemithorax. Electronically Signed: Florentin Zhang MD at 11:07 EDT , Service support , Assessment & Plan Assessment/Plan (1) Acute and chronic respiratory failure with hypoxia: (2) Acidosis, lactic: (3) Pneumonia due to COVID-19 virus: (4) RODRIGO (obstructive sleep apnea): PLAN: Acute hypoxic respiratory failure secondary to COVID-19 pneumonia -Patient symptoms started greater than 10 days before presentation -Patient is not a candidate for remdesivir percent neb -Start Decadron day of 10 -Check urine Legionella and strep pneumo antigens -Start Mucinex -Incentive spirometer -Pep therapy with Acapella -Encourage mobility -CPAP at at bedtime -Diurese as needed -Patient is at high risk for decompensation -Pulmonary consult -Lovenox 40 mg twice daily as DVT prophylaxis -Hold home estradiol at this point given increased risk for DVT with Covid DM-2 -Patient is on oral agents at baseline -We will hold -Before meals and at bedtime blood sugar checks -Sliding scale-moderate dose -Assess blood sugars especially with Decadron use and anticipate will need Lantus added tomorrow Hypothyroidism -Continue levothyroxine -Check TSH RODRIGO -CPAP 10 cmH2O at at bedtime Depression -Continue Zoloft History of abdominal hernia status post mesh -Stable but will limit prone positioning DVT prophylaxis -Lovenox 40 mg twice daily CODE STATUS -Full code Charges/Coding Visit Charges Inpatient E&M: 27202 Init Hosp L3
[2021-01-01] MEDS: Sertraline 50 MG Tablet PO (21:00)
--- NOTE | 2021-01-01 23:00 | NURSING ---
pandemic documentation. 2300 -7am
[2021-01-02] VITALS (22 sets, daily range): BP systolic 109–141; BP diastolic 53–97; PULSE 57–78; RESP 16–29; TEMP 35.9–36.6; O2SAT 89–97
[2021-01-02 01:35] LABS: Bedside Glucose 229 mg/dL (70-110)
[2021-01-02 01:41] LABS: Bedside Glucose 313 mg/dL (70-110)
[2021-01-02 04:21] LABS: Absolute Lymphocyte Count 0.99 X10^3/uL (0.83-4.51); Absolute Neutrophil Count 5.6 X10^3/uL (2.0-7.7); Basophil# 0.01 X10^3/uL; Basophil% 0.1 % (0-1); Hematocrit 39.1 % (37-47); Hemoglobin 13.5 g/dL (12.0-15.0); Lymphocyte # 0.99 X10^3/ul (0.83-4.51); Lymphocyte % 14.3 % (19-41); Mean Corp Hgb Conc 34.5 g/dL (32-36); Mean Corpuscular Volume 89.7 fL (81-99); Mean Platelet Vol. 10.5 fl (6.2-12.0); Monocyte% 4.3 % (0-10); NRBC Flagged by Analyzer 0 % (0-5); Neutrophil # 5.56 X10^3/uL (2.7-7.7); Neutrophil % 80.7 % (47-70); Platelet Count 265 K/mm3 (150-450); RBC Distribution Width CV 11.9 % (11.6-14.6); Red Blood Count 4.36 M/mm3 (4.2-5.4); White Blood Count 6.9 K/mm3 (4.4-11.0)
[2021-01-02 04:48] LABS: ALB/GLOB Ratio 0.5 RATIO (0.9-2.4); AST(SGOT) 22 U/L (15-37); Alanine Aminotransfer ALT/SGPT 25 U/L (13-56); Albumin, Serum 2.5 g/dL (3.2-5.0); Alkaline Phosphatase 159 U/L (45-117); Anion Gap 11 (5-15); BUN 9 mg/dL (7-18); BUN/Creat Ratio 16.5 RATIO (10-20); Calcium,Total 8.8 mg/dL (8.5-10.1); Chloride 106 mmol/L (98-107); Creatinine, Serum 0.55 mg/dL (0.55-1.02); EST Glomerular Filtration Rate 121 mL/min (>60); Est Glom Filt Rate - Afr Amer 147 mL/min (>60); Estimated Creatinine Clearance 87.11 ml/min; Globulin 5.2 g/dL (2.2-4.2); Glucose 220 mg/dL (74-106); Potassium 3.7 mmol/L (3.5-5.1); Protein, Total 7.7 g/dL (6.4-8.2); Sodium Level 139 mmol/L (136-145); Thyroid Stim Hormone (TSH) 0.52 uIU/mL (0.358-3.74)
--- NOTE | 2021-01-02 06:46 | PN.CC_ITS ---
Assessment & Plan Assessment/Plan (1) Asthma: (2) RODRIGO (obstructive sleep apnea): (3) Abdominal wall fistula: PLAN: RECOMMENDATIONS: 1. Initiate CPAP 10 cm of water with sleep 2. Wean supplemental oxygen as tolerated 3. Initiate Decadron therapy. Not a candidate for PEDRO or Remdesivir therapy 4. Increase basal insulin 5. Encourage incentive spirometer, Acapella, out of bed and prone positioning as tolerated 6. Diuresis as tolerated by labs 7. Use bronchoscope if necessary for intubation 8. Okay to transfer from the intensive care unit IMPRESSIONS: 1. Acute hypoxic respiratory insufficiency secondary to COVID-19 Patient's D-dimer and pro calcitonin are within normal limits. Likelihood of concomitant PE and bacterial infection are relatively low. Unfortunately, patient is delayed in presentation at 11 days, so remdesivir and PEDRO therapy have been proven less effective. Patient should be placed on Decadron therapy. We will have to watch blood sugars closely. Patient does have a history of being a difficult intubation. Patient with only mild hypoxia at this time. Likely okay to leave the intensive care unit. If patient requires high FiO2, would monitor in the intensive care. Patient did confirm she is a full code. Continue vitamin C and zinc. Okay to initiate bronchodilators if patient deve lops wheezing. 2. Diabetes mellitus Patient not insulin-dependent at baseline, but is on Decadron. Lantus will be added. Continue to titrate as necessary. 3. RODRIGO/hypertension/hyperlipidemia/morbid obesity/extensive abdominal wall surgeries/nonvaccinated status/supplemental hormone therapy Complicates care, management, recovery and prognosis. Okay to continue with statin therapy from my perspective. Okay to continue with baseline a ntihypertensive medications from my perspective. Would not recommend continuation of hormonal therapy as patient is already at high risk for thrombotic complications given COVID-19. Subjective Subjective Patient significantly improved compared to yesterday subjectively. Patient denies any current chest pain. Patient does report she has had issues with Solu-Medrol in the past, but is not having any side effects to Decadron that she can tell. Patient does have a cough. Patient did not use CPAP overnight, but feels that she slept well. Objective Data Objective Data Vital Signs: Vital Signs Temp Pulse Resp BP Pulse Ox 36.6 C 57 L 26 H 115/58 L 91 01/02/21 04:00 01/02/21 06:00 01/02/21 06:00 01/02/21 06:00 01/02/21 06:00 Oxygen Flow Rate (L/min) 4 Oxygen Delivery Method Nasal Cannula Weight: 101.5 kg Body Mass Index (BMI) 41.7 Intake & Output: Intake and Output for Last 24 Hours 12/31/20 01/01/21 01/02/21 23:59 23:59 23:59 Intake Total 920 / 920 240 / 240 Output Total 950 / 950 300 / 300 Balance -30 / -30 -60 / -60 Lab / Micro Data Result Diagrams: 01/02/21 04:00 01/02/21 04:00 Labs: Laboratory Results - last 24 hr 01/01/21 10:30: WBC 7.2, RBC 4.45, Hgb 13.8, Hct 40.3, MCV 90.6, MCH 31.0, MCHC 34.2, RDW Std Deviation 40.0, RDW Coeff of Yves 12.1, Plt Count 238, MPV 10.5, Immature Gran % (Auto) 0.400, Neut % (Auto) 73.5 H, Lymph % (Auto) 21.8, [place] % (Auto) 3.9, Eos % (Auto) 0.1, Baso % (Auto) 0.3, Absolute Neuts (auto) 5.3, Absolute Lymphs (auto) 1.57, Nucleated RBC % 0 01/01/21 10:30: Fibrinogen 710 H, D-Dimer Quant (PE/DVT) 0.37 01/01/21 10:30: Sodium 140, Potassium 3.4 L, Chloride 103, Carbon Dioxide 26.0, Anion Gap 11, BUN 7, Creatinine 0.68, Estim Creat Clear Calc 70.45, Est GFR (MDRD) Af Amer 113, Est GFR (MDRD) Non-Af 94, BUN/Creatinine Ratio 10.3, Glucose 212 H, Calcium 9.1, Total Bilirubin 0.60, AST 31, ALT 28, Alkaline Phosphatase 175 H, Lactate Dehydrogenase 291 H, Total Creatine Kinase 76, Troponin I High Sens 6, C-React Prot Ext Range 59.30 H, Total Protein 8.2, Albumin 2.8 L, Globulin 5.4 H, Albumin/Globulin Ratio 0.5 L 01/01/21 10:30: Lactic Acid 2.1 H* 01/01/21 10:30: Procalcitonin 0.04 01/01/21 10:30: Procalcitonin Cancelled 01/01/21 10:30: Phosphorus 3.1, Magnesium 2.1 01/01/21 15:05: Lactic Acid 1.6 01/01/21 16:42: POC Glucose 229 H 01/01/21 20:59: POC Glucose 313 H 01/02/21 04:00: WBC 6.9, RBC 4.36, Hgb 13.5, Hct 39.1, MCV 89.7, MCH 31.0, MCHC 34.5, RDW Std Deviation 39.0, RDW Coeff of Yves 11.9, Plt Count 265, MPV 10.5, Immature Gran % (Auto) 0.600, Neut % (Auto) 80.7 H, Lymph % (Auto) 14.3 L, [place] % (Auto) 4.3, Eos % (Auto) 0.0, Baso % (Auto) 0.1, Absolute Neuts (auto) 5.6, Absolute Lymphs (auto) 0.99, Nucleated RBC % 0 01/02/21 04:00: Sodium 139, Potassium 3.7, Chloride 106, Carbon Dioxide 22.0, Anion Gap 11, BUN 9, Creatinine 0.55, Estim Creat Clear Calc 87.11, Est GFR (MDRD) Af Amer 147, Est GFR (MDRD) Non-Af 121, BUN/Creatinine Ratio 16.5, Glucose 220 H, Calcium 8.8, Total Bilirubin 0.50, AST 22, ALT 25, Alkaline Phosphatase 159 H, Total Protein 7.7, Albumin 2.5 L, Globulin 5.2 H, Albumin/Globulin Ratio 0.5 L, TSH 0.52 Micro: Microbiology 01/01/21 16:30 Urine, Clean Catch Legionella Antigen - Final 01/01/21 16:30 Urine, Clean Catch Streptococcus pneumoniae Antigen (M - Final Radiography Diagnostic Testing: Radiology Impression Chest X-Ray 01/01/21 10:39 IMPRESSION: Patchy bilateral pulmonary infiltrates worse in the left hemithorax. Electronically Signed: Florentin Zhang MD at 11:07 EDT , Service support , Rhythm Strip Rhythm Strip: Sinus Rhythm Rate: 85 Ectopy: None Physical Exam Const alert, oriented x3 and no apparent distress Constitutional Narrative: On nasal cannula oxygen General Appearance: cooperative, well developed and appears older than stated age Nutritional Appearance: morbidly obese HEENT normocephalic, head/scalp atraumatic and moist oral mucous membranes Eyes PERRL and EOMs intact bilaterally Neck full ROM and no lymphadenopathy Chest inspection of chest normal Chest: symmetrical chest wall rise; Negative for crepitus Resp Effort and Inspection: able to speak in complete sentences and actively coughing non-productive Auscultation: diminished lung sounds; Negative for rales, rhonchi or wheezes Percussion: Negative for dullness Cardio regular rate, regular rhythm, S1 normal heart sound, S2 normal heart sound, no murmurs, no rub and no gallops GI normal to inspection, nondistended, normoactive bowel sounds Inspection: central obesity and striae no CVA tenderness Extremity no clubbing, cyanosis or edema Skin no rashes or lesions noted Neuro oriented x3, CN's II-XII intact bilaterally, moves all extremities and no focal motor deficits Psych cooperative and affect normal Charges/Coding Visit Charges Inpatient E&M: 35631 Subs Hosp L3
[2021-01-02] MEDS: Insulin Lispro 100 UNIT/ML INSULN.PEN SC ×4 (08:18→20:46)
[2021-01-02] MEDS: Enoxaparin 40 MG/0.4 ML Syringe SC ×2 (08:19→20:36)
[2021-01-02] MEDS: Levothyroxine 75 MCG Tablet PO (08:20)
[2021-01-02] MEDS: Ascorbic Acid 500 MG Tablet 1000 MG PO (08:21)
[2021-01-02] MEDS: dexAMETHasone 4 MG Tablet 6 MG PO (08:21)
[2021-01-02] MEDS: guaiFENesin 1,200 MG Tablet 1200 MG PO ×2 (08:21→20:36)
[2021-01-02] MEDS: CHLORHEXIDINE GLUC 2% CLOTH 1 EACH TOWELETTE TOPICAL (08:22)
--- NOTE | 2021-01-02 10:26 | CASEMGMT ---
RN CM Assessment Called patient Christopher Acosta- answered and introduced role of RN CM. Agreed to complete RNCM assessment at this time. Patient currently in Covid isolation- Covid positive on 12/27/20. Care providers, pharmacy, and demographics verified. Admit Dx: Acute hypoxic respiratory failure s/t Covid Re-Admit: No Barriers/Issues: None. has not tested for Covid but denies s/s illness. States if patient required to quarantine at time of discharge, patient can sleep in separate room and use separate bathroom. Patient bedroom is on 2nd fl with 14 steps, however can stay on 1st fl if needed. PCP: Haydee Szymanski Specialists: Pulm- Alvaro Preferred [facility]acy: [facility] Insurance: O Rx Benefit: [employer] LNOK: Christopher Acosta LW/HPOA: None, aware can return as an outpatient to complete with social work department. Living Arrangements: Lives with in a 2SH, bedroom on upper fl with 14 steps. 1 small step to enter home. ADL?s: Independent with ambulation and ADLs Transportation: Both patient and drive. will transport upon hospital DC. DME: Glucometer, CPAP- obtained from her dtr since hers was old in past from [facility] HHC: Past- Cannot recall agency. SNF: None Goal: Home. Aware RNCM will continue to follow for potential home oxygen need and mobility. Denies any questions, concerns or issues with DC planning at this time. DC PLAN: Home with possible home O2 and f/u on moblility for any potential needs. Could not find patient specific medical plan for in network companies. [facility]) in-network are as follows: LONG Barajas, Teodoro Vanessa. Ben Pierre, SOLECM
[2021-01-02 10:55] LABS: Bedside Glucose 240 mg/dL (70-110)
--- NOTE | 2021-01-02 16:14 | PCM.PN.HOSP ---
Subjective Subjective Patient states she is feeling better today. Reports she has had no more nausea and that her diarrhea has improved significantly. She is still short of breath although this seems to have stabilized. She is currently on 2 L nasal cannula and satting anywhere from 93 to 97% currently. Objective Data Objective Data Vital Signs: Vital Signs Temp Pulse Resp BP Pulse Ox 96.6 F L 65 18 119/62 2 01/02/21 12:00 01/02/21 13:00 01/02/21 13:00 01/02/21 13:00 01/02/21 13:00 Oxygen Flow Rate (L/min) 2 Oxygen Delivery Method Nasal Cannula Weight: 101.5 kg Body Mass Index (BMI) 41.7 Intake & Output: Intake and Output for Last 24 Hours 12/31/20 01/01/21 01/02/21 23:59 23:59 23:59 Intake Total 920 / 920 740 / 740 Output Total 950 / 950 800 / 800 Balance -30 / -30 -60 / -60 Medical Nutrition Assessment Dietitian: Malnutrition Criteria Met Start: 01/02/21 14:01 Freq: Status: Active Protocol: Document 01/02/21 14:01 (Rec: 01/02/21 14:01 [id number]) Nutrition Malnutrition Evidence of Malnutrition Exists Yes Malnutrition (severe): Acute Illness/Injury Evidenced By Suboptimal Energy Intake ( Severe),Weight Loss (Severe) Clinical Problem Acute Disease or Injury Related Malnutrition Etiology severe acute malnutrition r/t inadequate oral intake w/ increased energy needs d/t COVID-19, resp. failure Signs/Symptoms as evidenced by estimated PO intake meeting <50% of estimated nutritional needs >1 week, unintentional wt loss of 15.2#/6.3% x12 days Status Active Problem Recommendation Dietitian Recommendations/Changes Regular diet, 120mL Glucerna ONS w/ meals d/t acute malnutrition Lab / Micro Data Result Diagrams: 01/02/21 04:00 01/02/21 04:00 Labs: Laboratory Results - last 24 hr 01/01/21 16:42: POC Glucose 229 H 01/01/21 20:59: POC Glucose 313 H 01/02/21 04:00: WBC 6.9, RBC 4.36, Hgb 13.5, Hct 39.1, MCV 89.7, MCH 31.0, MCHC 34.5, RDW Std Deviation 39.0, RDW Coeff of Yves 11.9, Plt Count 265, MPV 10.5, Immature Gran % (Auto) 0.600, Neut % (Auto) 80.7 H, Lymph % (Auto) 14.3 L, [place] % (Auto) 4.3, Eos % (Auto) 0.0, Baso % (Auto) 0.1, Absolute Neuts (auto) 5.6, Absolute Lymphs (auto) 0.99, Nucleated RBC % 0 01/02/21 04:00: Sodium 139, Potassium 3.7, Chloride 106, Carbon Dioxide 22.0, Anion Gap 11, BUN 9, Creatinine 0.55, Estim Creat Clear Calc 87.11, Est GFR (MDRD) Af Amer 147, Est GFR (MDRD) Non-Af 121, BUN/Creatinine Ratio 16.5, Glucose 220 H, Calcium 8.8, Total Bilirubin 0.50, AST 22, ALT 25, Alkaline Phosphatase 159 H, Total Protein 7.7, Albumin 2.5 L, Globulin 5.2 H, Albumin/Globulin Ratio 0.5 L, TSH 0.52 01/02/21 10:48: POC Glucose 240 H Micro: Microbiology 01/01/21 16:30 Sputum, Expectorated/Coughed Gram Stain - Final 01/01/21 16:30 Urine, Clean Catch Legionella Antigen - Final 01/01/21 16:30 Urine, Clean Catch Streptococcus pneumoniae Antigen (M - Final Rhythm Strip Rhythm Strip: Sinus Rhythm Rate: 85 Ectopy: None Physical Exam Const alert, oriented x3 and no apparent distress Constitutional Narrative: Morbidly obese upper middle-aged white female sitting up in the chair at the bedside, appears comfortable at this time, currently on 2 L nasal cannula, nontoxic, looks as if she feels better than yesterday General Appearance: cooperative Exam Limitations: no limitations HEENT normocephalic, head/scalp atraumatic, hearing grossly normal bilaterally, moist oral mucous membranes and oropharynx normal HEENT Narrative: No thrush Head and Scalp: normocephalic Resp normal respiratory effort, no retractions and no use of accessory muscles Resp Narrative: Few scattered crackles and diminished diffusely Auscultation: crackles; Negative for rales, rhonchi or wheezes Cardio regular rate, regular rhythm, S1 normal heart sound, S2 normal heart sound, no murmurs, no rub, no gallops, no clicks and no JVD GI normal to inspection, nondistended, normoactive bowel sounds, soft to palpation, non-tender and non-distended Extremity no clubbing, cyanosis or edema Peripheral Pulses: Yes pulses 2+ throughout Neuro oriented x3 and moves all extremities Sensorium / Orientation: awake and alert Speech: speech normal Assessment & Plan Assessment/Plan (1) Acute and chronic respiratory failure with hypoxia: (2) Acidosis, lactic: (3) Pneumonia due to COVID-19 virus: (4) RODRIGO (obstructive sleep apnea): PLAN: Acute hypoxic respiratory failure secondary to COVID-19 pneumonia -Patient symptoms started greater than 10 days before presentation -Patient is not a candidate for remdesivir or baricitinib -Start Decadron day 2 of 10 -urine Legionella and strep pneumo antigens are negative -Sputum culture is pending -Blood cultures are pending -Continue Mucinex -Continue incentive spirometer -Continue Pep therapy with Acapella -Encourage mobility -CPAP at at bedtime -Diurese as needed -Patient is at high risk for decompensation -Pulmonary following -Lovenox 40 mg twice daily as DVT prophylaxis -Hold home estradiol at this point given increased risk for DVT with Covid -We will transfer out of ICU DM-2 -Patient is on oral agents at baseline -Continue to hold -Lantus 10 units added as blood sugars are greater than 200 consistently -Before meals and at bedtime blood sugar checks -Sliding scale-moderate dose Hypothyroidism -Continue levothyroxine -TSH is within normal limits RODRIGO -Continue CPAP 10 cmH2O at at bedtime Depression -Continue Zoloft History of abdominal hernia status post mesh -Stable but will limit prone positioning DVT prophylaxis -Lovenox 40 mg twice daily CODE STATUS -Full code Charges/Coding Visit Charges Inpatient E&M: 30956 Subs Hosp L2
[2021-01-02 17:00] LABS: Bedside Glucose 274 mg/dL (70-110)
--- NOTE | 2021-01-02 18:41 | NURSING ---
report called to med-surg transferred per chair with o2 to room 310
--- NOTE | 2021-01-02 20:10 | CON.PCM.ID_ITS ---
Assessment & Plan Assessment/Plan (1) Pneumonia due to COVID-19 virus: PLAN: Covid with hypoxia. Sx started 12/21. Unvaccinated. Isolate for 20 days from 12/21. Recommend vaccine after gets out of iso. On dex, improving. Plan on 10 day course. Will follow, thank you HPI Consult Data Date of Consult: 01/02/21 HPI Narrative HPI Narrative: MADDY BENEDICT, is a 60 F who presented 01/01 with sx since 12/21, reports headache, cough, n/v, fever, and chills. asymptomatic. Not vaccinated. Worsening SOB, came to ED, admitted on dex. Feeling better, on 2- 3L. Full ROS performed and neg except as noted above. [facility] Medical History Diabetes type 2, controlled Lichen sclerosus Home Medications sertraline 50 mg PO QHS 03/31/14 [History Last Taken 12/31/20 22:00] levothyroxine 75 mcg PO DAILY 01/19/15 [History Last Taken 12/31/20 09:00] estradiol 1 mg tablet 1 mg PO DAILY #30 tab 07/15/18 [Rx Last Taken 12/31/20 09:00] Allergy/AdvReac Type Severity Reaction Status Date / Time atorvastatin calcium AdvReac Intermediate Other Verified 01/01/21 10:26 [From Lipitor] erythromycin base AdvReac Intermediate Vomiting Verified 01/01/21 10:26 levofloxacin [From Levaquin] AdvReac Intermediate Nausea/Vom/ Verified 01/01/21 10:26 Diarrhea codeine AdvReac Vomiting Verified 01/01/21 10:26 hydrocodone bitartrate AdvReac Nausea/Vom/ Verified 01/01/21 10:26 [From Vicodin] Diarrhea metolazone [From Zaroxolyn] AdvReac Other Verified 01/01/21 10:26 Sulfa (Sulfonamide AdvReac Vomiting Verified 01/01/21 10:26 Antibiotics) tramadol AdvReac Vomiting Verified 01/01/21 10:26 Family History Mother Hypertension Father Lung disease Surgical History bowel blockage H/O: hysterectomy hernia repair with mesh mesh removal partial bowel removal Puncture wound of small intestine, open Social History adopted: No household members: spouse number of children: 2 current occupational status: unemployed sexually active: Yes Smoking Status: Never smoker alcohol intake: never substance use type: does not use well-balanced diet: about half the time caffeine: Yes (5 cups q day) what type of physical activity do you participate in: none seatbelt use: always do you feel safe at home: Yes 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 Physical Exam Const alert, oriented x3 and no apparent distress General Appearance: cooperative Exam Limitations: no limitations HEENT normocephalic and head/scalp atraumatic Eyes PERRL and EOMs intact bilaterally Neck supple and No nodes Resp Auscultation: diminished lung sounds Cardio regular rate and regular rhythm GI normal to inspection, nondistended, normoactive bowel sounds Extremity no clubbing, cyanosis or edema Skin no rashes or lesions noted Neuro CN's II-XII intact bilaterally Medical Records Data Medical Nutrition Assessment Dietitian: Malnutrition Criteria Met Start: 01/02/21 14:01 Freq: Status: Active Protocol: Document 01/02/21 14:01 (Rec: 01/02/21 14:01 [id number]) Nutrition Malnutrition Evidence of Malnutrition Exists Yes Malnutrition (severe): Acute Illness/Injury Evidenced By Suboptimal Energy Intake ( Severe),Weight Loss (Severe) Clinical Problem Acute Disease or Injury Related Malnutrition Etiology severe acute malnutrition r/t inadequate oral intake w/ increased energy needs d/t COVID-19, resp. failure Signs/Symptoms as evidenced by estimated PO intake meeting <50% of estimated nutritional needs >1 week, unintentional wt loss of 15.2#/6.3% x12 days Status Active Problem Recommendation Dietitian Recommendations/Changes Regular diet, 120mL Glucerna ONS w/ meals d/t acute malnutrition Lab / Micro Data Result Diagrams: 01/02/21 04:00 01/02/21 04:00 Labs: Laboratory Results - last 24 hr 01/01/21 16:42: POC Glucose 229 H 01/01/21 20:59: POC Glucose 313 H 01/02/21 04:00: WBC 6.9, RBC 4.36, Hgb 13.5, Hct 39.1, MCV 89.7, MCH 31.0, MCHC 34.5, RDW Std Deviation 39.0, RDW Coeff of Yves 11.9, Plt Count 265, MPV 10.5, Immature Gran % (Auto) 0.600, Neut % (Auto) 80.7 H, Lymph % (Auto) 14.3 L, [place] % (Auto) 4.3, Eos % (Auto) 0.0, Baso % (Auto) 0.1, Absolute Neuts (auto) 5.6, Absolute Lymphs (auto) 0.99, Nucleated RBC % 0 01/02/21 04:00: Sodium 139, Potassium 3.7, Chloride 106, Carbon Dioxide 22.0, Anion Gap 11, BUN 9, Creatinine 0.55, Estim Creat Clear Calc 87.11, Est GFR (MDRD) Af Amer 147, Est GFR (MDRD) Non-Af 121, BUN/Creatinine Ratio 16.5, Glucose 220 H, Calcium 8.8, Total Bilirubin 0.50, AST 22, ALT 25, Alkaline Phosphatase 159 H, Total Protein 7.7, Albumin 2.5 L, Globulin 5.2 H, Album in/Globulin Ratio 0.5 L, TSH 0.52 01/02/21 10:48: POC Glucose 240 H 01/02/21 16:50: POC Glucose 274 H Micro: Microbiology 01/01/21 16:30 Sputum, Expectorated/Coughed Gram Stain - Final 01/01/21 16:30 Urine, Clean Catch Legionella Antigen - Final 01/01/21 16:30 Urine, Clean Catch Streptococcus pneumoniae Antigen (M - Fi nal Rhythm Strip Rhythm Strip: Sinus Rhythm Rate: 85 Ectopy: None
[2021-01-02] MEDS: Sertraline 50 MG Tablet PO (20:36)
[2021-01-02] MEDS: Ondansetron 4 MG/2 ML Vial IV (20:36)
[2021-01-02] MEDS: 0.9% Saline Lock 10 ML Syringe IV (20:37)
[2021-01-02 21:05] LABS: Bedside Glucose 246 mg/dL (70-110)
--- NOTE | 2021-01-02 22:59 | CPS ---
Patient's home CPAP setup at bedside for nightly use. CPAP 10 for home pressure. Since patient on oxygen, 2L O2 will be bled into machine and titrated to keep pulse ox 90% or higher.
[2021-01-03] VITALS (15 sets, daily range): BP systolic 113–133; BP diastolic 63–68; PULSE 58–70; RESP 16–22; TEMP 36.4–36.8; O2SAT 85–97
[2021-01-03 06:30] LABS: Bedside Glucose 139 mg/dL (70-110)
[2021-01-03 07:27] LABS: Absolute Lymphocyte Count 1.99 X10^3/uL (0.83-4.51); Absolute Neutrophil Count 6.6 X10^3/uL (2.0-7.7); Basophil# 0.02 X10^3/uL; Basophil% 0.2 % (0-1); Eosinophil# 0.02 X10^3/uL; Eosinophils% 0.2 % (0-5); Hematocrit 38.4 % (37-47); Hemoglobin 12.9 g/dL (12.0-15.0); Lymphocyte # 1.99 X10^3/ul (0.83-4.51); Lymphocyte % 22.1 % (19-41); Mean Corp Hgb Conc 33.6 g/dL (32-36); Mean Corpuscular Hgb 30.9 pg (27.0-32.0); Mean Corpuscular Volume 91.9 fL (81-99); Mean Platelet Vol. 10.7 fl (6.2-12.0); Monocyte# 0.35 X10^3/uL; Monocyte% 3.9 % (0-10); NRBC Flagged by Analyzer 0 % (0-5); Neutrophil # 6.56 X10^3/uL (2.7-7.7); Neutrophil % 72.7 % (47-70); Platelet Count 299 K/mm3 (150-450); RBC Distribution Width SD 40.2 fl (35.1-43.9); Red Blood Count 4.18 M/mm3 (4.2-5.4)
[2021-01-03 07:59] LABS: Anion Gap 8 (5-15); BUN 13 mg/dL (7-18); BUN/Creat Ratio 19.6 RATIO (10-20); Calcium,Total 9.2 mg/dL (8.5-10.1); Chloride 110 mmol/L (98-107); Creatinine, Serum 0.66 mg/dL (0.55-1.02); EST Glomerular Filtration Rate 97 mL/min (>60); Est Glom Filt Rate - Afr Amer 117 mL/min (>60); Estimated Creatinine Clearance 72.59 ml/min; Glucose 139 mg/dL (74-106); Potassium 3.6 mmol/L (3.5-5.1); Sodium Level 142 mmol/L (136-145)
--- NOTE | 2021-01-03 08:28 | PN.CC_ITS ---
Assessment & Plan Assessment/Plan (1) Asthma: (2) RODRIGO (obstructive sleep apnea): (3) Abdominal wall fistula: PLAN: RECOMMENDATIONS: 1. Continue CPAP 10 cm of water with sleep with 2 L bleed 2. Wean supplemental oxygen as tolerated 3. Continue Decadron therapy. Not a candidate for PEDRO or Remdesivir therapy 4. Continue basal insulin 5. Encourage incentive spirometer, Acapella, out of bed and prone positioning as tolerated 6. Diuresis as tolerated by labs 7. Use bronchoscope if necessary for intubation 8. Walking oximetry prior to discharge IMPRESSIONS: 1. Acute hypoxic respiratory insufficiency secondary to COVID-19 Patient's D-dimer and pro calcitonin are within normal limits. Likelihood of concomitant PE and bacterial infection are relatively low. Unfortunately, patient is delayed in presentation at 11 days, so remdesivir and PEDRO therapy have been proven less effective. Patient should be placed on Decadron therapy. We will have to watch blood sugars closely. Patient does have a history of being a difficult intubation. Patient with only mild hypoxia at this time. Patient continues to improve. Patient should have a walking oximetry. If able to tolerate ambulation on 6 L or less, patient potentially could be discharged. Continue vitamin C and zinc. Okay to initiate bronchodilators if patient develops wheezing. Patient should follow-up with her court clerk in 4 to 6 weeks to evaluate for cessation of oxygen therapy. 2. Diabetes mellitus Patient not insulin-dependent at baseline, but is on Decadron. Lantus should be continued until Decadron is discontinued at 10 days. Continue to titrate as necessary. 3. RODRIGO/hypertension/hyperlipidemia/morbid obesity/extensive abdominal wall surgeries/nonvaccinated status/supplemental hormone therapy Complicates care, management, recovery and prognosis. Okay to continue with statin therapy from my perspective. Okay to continue with baseline antihypertensive medications from my perspective. Would not recommend continuation of hormonal therapy as patient is already at high risk for thrombotic complications given COVID-19. If patient persists in the need for hormonal therapy, could consider low-dose 10 a inhibitor for 4 to 6 weeks. Subjective Subjective Patient did well overnight. Patient able to tolerate home CPAP with good effect. Patient did have to have 2 L added to her CPAP, which is new from baseline. Patient feels subjectively stronger compared to previous. Patient is reporting a productive cough. Objective Data Objective Data Vital Signs: Vital Signs Temp Pulse Resp BP Pulse Ox 36.5 C L 58 L 16 113/63 93 01/03/21 04:53 01/03/21 04:53 01/03/21 04:53 01/03/21 04:53 01/03/21 06:00 Oxygen Flow Rate (L/min) 3 Oxygen Delivery Method CPAP Weight: 101.5 kg Body Mass Index (BMI) 41.7 Intake & Output: Intake and Output for Last 24 Hours 01/01/21 01/02/21 01/03/21 23:59 23:59 23:59 Intake Total 920 / 920 1140 / 1140 700 / 700 Output Total 950 / 950 800 / 800 Balance - / 30 340 / 340 700 / 700 Medical Nutrition Assessment Dietitian: Malnutrition Criteria Met Start: 01/02/21 14:01 Freq: Status: Active Protocol: Document 01/02/21 14:01 [email or web address] (Rec: 01/02/21 14:01 [id number]) Nutrition Malnutrition Evidence of Malnutrition Exists Yes Malnutrition (severe): Acute Illness/Injury Evidenced By Suboptimal Energy Intake ( Severe),Weight Loss (Severe) Clinical Problem Acute Disease or Injury Related Malnutrition Etiology severe acute malnutrition r/t inadequate oral intake w/ increased energy needs d/t COVID-19, resp. failure Signs/Symptoms as evidenced by estimated PO intake meeting <50% of estimated nutritional needs >1 week, unintentional wt loss of 15.2#/6.3% x12 days Status Active Problem Recommendation Dietitian Recommendations/Changes Regular diet, 120mL Glucerna ONS w/ meals d/t acute malnutrition Lab / Micro Data Result Diagrams: 01/03/21 06:40 01/03/21 06:40 Labs: Laboratory Results - last 24 hr 01/02/21 10:48: POC Glucose 240 H 01/02/21 16:50: POC Glucose 274 H 01/02/21 20:45: POC Glucose 246 H 01/03/21 06:14: POC Glucose 139 H 01/03/21 06:40: WBC 9.0, RBC 4.18 L, Hgb 12.9, Hct 38.4, MCV 91.9, MCH 30.9, MCHC 33.6, RDW Std Deviation 40.2, RDW Coeff of Yves 12.0, Plt Count 299, MPV 10.7, Immature Gran % (Auto) 0.900, Neut % (Auto) 72.7 H, Lymph % (Auto) 22.1, [place] % (Auto) 3.9, Eos % (Auto) 0.2, Baso % (Auto) 0.2, Absolute Neuts (auto) 6.6, Absolute Lymphs (auto) 1.99, Nucleated RBC % 0 01/03/21 06:40: Sodium 142, Potassium 3.6, Chloride 110 H, Carbon Dioxide 24.0, Anion Gap 8, BUN 13, Creatinine 0.66, Estim Creat Clear Calc 72.59, Est GFR (MDRD) Af Amer 117, Est GFR (MDRD) Non-Af 97, BUN/Creatinine Ratio 19.6, Glucose 139 H, Calcium 9.2 Micro: Microbiology 01/01/21 16:30 Sputum, Expectorated/Coughed Gram Stain - Final 01/01/21 16:30 Urine, Clean Catch Legionella Antigen - Final 01/01/21 16:30 Urine, Clean Catch Streptococcus pneumoniae Antigen (M - Final Rhythm Strip Rhythm Strip: Sinus Rhythm Rate: 85 Ectopy: None Physical Exam Const alert, oriented x3 and no apparent distress Constitutional Narrative: On nasal CPAP with 2 L bleed General Appearance: cooperative, well developed and appears older than stated age Nutritional Appearance: morbidly obese HEENT normocephalic, head/scalp atraumatic and moist oral mucous membranes Eyes PERRL and EOMs intact bilaterally Neck full ROM and no lymphadenopathy Chest inspection of chest normal Chest: symmetrical chest wall rise; Negative for crepitus Resp Effort and Inspection: able to speak in complete sentences and actively coughing non-productive Auscultation: diminished lung sounds; Negative for rales, rhonchi or wheezes Percussion: Negative for dullness Cardio regular rate, regular rhythm, S1 normal heart sound, S2 normal heart sound, no murmurs, no rub and no gallops GI normal to inspection, nondistended, normoactive bowel sounds Inspection: central obesity and striae no CVA tenderness Extremity no clubbing, cyanosis or edema Skin no rashes or lesions noted Neuro oriented x3, CN's II-XII intact bilaterally, moves all extremities and no focal motor deficits Psych cooperative and affect normal Charges/Coding Visit Charges Inpatient E&M: 28208 Subs Hosp L2
[2021-01-03] MEDS: Ascorbic Acid 500 MG Tablet 1000 MG PO (08:51)
[2021-01-03] MEDS: Enoxaparin 40 MG/0.4 ML Syringe SC ×2 (08:51→20:40)
[2021-01-03] MEDS: guaiFENesin 1,200 MG Tablet 1200 MG PO ×2 (08:51→20:40)
[2021-01-03] MEDS: dexAMETHasone 4 MG Tablet 6 MG PO (08:52)
--- NOTE | 2021-01-03 11:04 | CASEMGMT ---
Social Work Note Per assisted living associate questions, pt has completed HCPOA and LW, hasn't provided copy to [facility] and pt unable to bring in copy. Zohra Franco AIR BRUSH ARTIST, WEB APPLICATIONS ADMINISTRATOR
[2021-01-03] MEDS: Levothyroxine 75 MCG Tablet PO (11:20)
[2021-01-03] MEDS: Insulin Lispro 100 UNIT/ML INSULN.PEN SC ×3 (11:20→20:39)
[2021-01-03 11:41] LABS: Bedside Glucose 173 mg/dL (70-110)
[2021-01-03 17:05] LABS: Bedside Glucose 326 mg/dL (70-110)
--- NOTE | 2021-01-03 17:13 | PCM.PN.HOSP ---
Subjective Subjective Patient states she is feeling better. She still is pretty dyspneic with exertion and required 9 L with ambulation. Objective Data Objective Data Vital Signs: Vital Signs Temp Pulse Resp BP Pulse Ox 98.2 F 61 22 H 132/66 H 96 01/03/21 14:40 01/03/21 14:40 01/03/21 14:40 01/03/21 14:40 01/03/21 17:00 Oxygen Flow Rate (L/min) [At 3 REST with Oxygen] Oxygen Flow Rate (L/min) [ 9 AMBULATING with Oxygen #3] Oxygen Flow Rate (L/min) [ 7 AMBULATING with Oxygen #2] Oxygen Flow Rate (L/min) [ 3 AMBULATING with Oxygen #1] Oxygen Flow Rate (L/min) 2 Oxygen Delivery Method Nasal Cannula Weight: 101.5 kg Body Mass Index (BMI) 41.7 Intake & Output: Intake and Output for Last 24 Hours 01/01/21 01/02/21 01/03/21 23:59 23:59 23:59 Intake Total 920 / 920 1140 / 1140 700 / 700 Output Total 950 / 950 800 / 800 Balance - / 30 340 / 340 700 / 700 Medical Nutrition Assessment Dietitian: Malnutrition Criteria Met Start: 01/02/21 14:01 Freq: Status: Active Protocol: Document 01/02/21 14:01 (Rec: 01/02/21 14:01 [id number]) Nutrition Malnutrition Evidence of Malnutrition Exists Yes Malnutrition (severe): Acute Illness/Injury Evidenced By Suboptimal Energy Intake ( Severe),Weight Loss (Severe) Clinical Problem Acute Disease or Injury Related Malnutrition Etiology severe acute malnutrition r/t inadequate oral intake w/ increased energy needs d/t COVID-19, resp. failure Signs/Symptoms as evidenced by estimated PO intake meeting <50% of estimated nutritional needs >1 week, unintentional wt loss of 15.2#/6.3% x12 days Status Active Problem Recommendation Dietitian Recommendations/Changes Regular diet, 120mL Glucerna ONS w/ meals d/t acute malnutrition Lab / Micro Data Result Diagrams: 01/03/21 06:40 01/03/21 06:40 Labs: Laboratory Results - last 24 hr 01/02/21 20:45: POC Glucose 246 H 01/03/21 06:14: POC Glucose 139 H 01/03/21 06:40: WBC 9.0, RBC 4.18 L, Hgb 12.9, Hct 38.4, MCV 91.9, MCH 30.9, MCHC 33.6, RDW Std Deviation 40.2, RDW Coeff of Yves 12.0, Plt Count 299, MPV 10.7, Immature Gran % (Auto) 0.900, Neut % (Auto) 72.7 H, Lymph % (Auto) 22.1, [place] % (Auto) 3.9, Eos % (Auto) 0.2, Baso % (Auto) 0.2, Absolute Neuts (auto) 6.6, Absolute Lymphs (auto) 1.99, Nucleated RBC % 0 01/03/21 06:40: Sodium 142, Potassium 3.6, Chloride 110 H, Carbon Dioxide 24.0, Anion Gap 8, BUN 13, Creatinine 0.66, Estim Creat Clear Calc 72.59, Est GFR (MDRD) Af Amer 117, Est GFR (MDRD) Non-Af 97, BUN/Creatinine Ratio 19.6, Glucose 139 H, Calcium 9.2 01/03/21 11:17: POC Glucose 173 H 01/03/21 17:02: POC Glucose 326 H Micro: Microbiology 01/01/21 11:20 Blood Culture (Wb) - Anticubital Left Blood Culture - Preliminary No growth in 48 hours. 01/01/21 10:30 Blood Culture (Wb) - No Site/Description Given Blood Culture - Preliminary No growth in 48 hours. 01/01/21 16:30 Sputum, Expectorated/Coughed Gram Stain - Final 01/01/21 16:30 Urine, Clean Catch Legionella Antigen - Final 01/01/21 16:30 Urine, Clean Catch Streptococcus pneumoniae Antigen (M - Final Rhythm Strip Rhythm Strip: Sinus Rhythm Rate: 85 Ectopy: None Physical Exam Const alert, oriented x3 and no apparent distress Constitutional Narrative: Morbidly obese upper middle-aged white female sitting up in the chair at the bedside, appears comfortable at this time, currently on 2 L nasal cannula, nontoxic General Appearance: cooperative Exam Limitations: no limitations HEENT normocephalic, head/scalp atraumatic, hearing grossly normal bilaterally, moist oral mucous membranes and oropharynx normal HEENT Narrative: No thrush Head and Scalp: normocephalic Resp normal respiratory effort, no retractions, no use of accessory muscles and clear to auscultation bilaterally Auscultation: crackles; Negative for rales, rhonchi or wheezes Cardio regular rate, regular rhythm, S1 normal heart sound, S2 normal heart sound, no murmurs, no rub, no gallops, no clicks and no JVD GI normal to inspection, nondistended, normoactive bowel sounds, soft to palpation, non-tender and non-distended Extremity no clubbing, cyanosis or edema Peripheral Pulses: Yes pulses 2+ throughout Neuro oriented x3 and moves all extremities Sensorium / Orientation: awake and alert Speech: speech normal Assessment & Plan Assessment/Plan (1) Acute and chronic respiratory failure with hypoxia: (2) Acidosis, lactic: (3) Pneumonia due to COVID-19 virus: (4) RODRIGO (obstructive sleep apnea): PLAN: Acute hypoxic respiratory failure secondary to COVID-19 pneumonia -Patient symptoms started greater than 10 days before presentation -Patient is not a candidate for remdesivir or baricitinib -Start Decadron day 3 of 10 -urine Legionella and strep pneumo antigens are negative -Sputum culture negative -Blood cultures negative -Continue Mucinex -Continue incentive spirometer -Continue Pep therapy with Acapella -Encourage mobility -CPAP at at bedtime -Diurese as needed -Patient is at high risk for decompensation -Pulmonary following -Lovenox 40 mg twice daily as DVT prophylaxis -Hold home estradiol at this point given increased risk for DVT with Covid -Patient is only on 2 L at rest but requires 9 with ambulation I discussed with her that we need to get her to 6 L with ambulation prior to discharge and she is amenable and understands DM-2 -Patient is on oral agents at baseline -Continue to hold -Continue Lantus 10 units -Before meals and at bedtime blood sugar checks -Sliding scale-moderate dose Hypothyroidism -Continue levothyroxine -TSH is within normal limits RODRIGO -Continue CPAP 10 cmH2O at at bedtime Depression -Continue Zoloft History of abdominal hernia status post mesh -Stable but will limit prone positioning DVT prophylaxis -Lovenox 40 mg twice daily CODE STATUS -Full code Charges/Coding Visit Charges Inpatient E&M: 68990 Subs Hosp L2
[2021-01-03] MEDS: Sertraline 50 MG Tablet PO (20:40)
[2021-01-03 21:15] LABS: Bedside Glucose 339 mg/dL (70-110)
[2021-01-04 02:00] VITALS: BP 143/67; PULSE 60; RESP 18; TEMP 36.5; O2SAT 96
[2021-01-04 06:00] VITALS: O2SAT 85; O2SAT 86; O2SAT 88; O2SAT 90; O2SAT 91; O2SAT 93
[2021-01-04] MEDS: Insulin Lispro 100 UNIT/ML INSULN.PEN SC ×2 (06:25→11:39)
[2021-01-04 06:37] VITALS: O2SAT 86
[2021-01-04 06:55] LABS: Bedside Glucose 165 mg/dL (70-110)
[2021-01-04 07:04] LABS: Absolute Lymphocyte Count 1.66 X10^3/uL (0.83-4.51); Absolute Neutrophil Count 9.4 X10^3/uL (2.0-7.7); Basophil# 0.02 X10^3/uL; Basophil% 0.2 % (0-1); Eosinophil# 0.01 X10^3/uL; Eosinophils% 0.1 % (0-5); Hematocrit 40.2 % (37-47); Hemoglobin 13.7 g/dL (12.0-15.0); Lymphocyte # 1.66 X10^3/ul (0.83-4.51); Lymphocyte % 14.2 % (19-41); Mean Corp Hgb Conc 34.1 g/dL (32-36); Mean Corpuscular Hgb 30.7 pg (27.0-32.0); Mean Corpuscular Volume 90.1 fL (81-99); Mean Platelet Vol. 10.8 fl (6.2-12.0); Monocyte# 0.53 X10^3/uL; Monocyte% 4.5 % (0-10); NRBC Flagged by Analyzer 0 % (0-5); Neutrophil # 9.36 X10^3/uL (2.7-7.7); Neutrophil % 80.2 % (47-70); Platelet Count 313 K/mm3 (150-450); RBC Distribution Width CV 11.9 % (11.6-14.6); Red Blood Count 4.46 M/mm3 (4.2-5.4); White Blood Count 11.7 K/mm3 (4.4-11.0)
[2021-01-04 07:34] LABS: Anion Gap 8 (5-15); BUN 11 mg/dL (7-18); BUN/Creat Ratio 17.2 RATIO (10-20); Calcium,Total 9.2 mg/dL (8.5-10.1); Chloride 107 mmol/L (98-107); Creatinine, Serum 0.64 mg/dL (0.55-1.02); EST Glomerular Filtration Rate 101 mL/min (>60); Est Glom Filt Rate - Afr Amer 122 mL/min (>60); Estimated Creatinine Clearance 74.86 ml/min; Glucose 163 mg/dL (74-106); Potassium 3.8 mmol/L (3.5-5.1); Sodium Level 139 mmol/L (136-145)
[2021-01-04] MEDS: dexAMETHasone 4 MG Tablet 6 MG PO (09:07)
[2021-01-04] MEDS: Enoxaparin 40 MG/0.4 ML Syringe SC (09:07)
[2021-01-04] MEDS: Ascorbic Acid 500 MG Tablet 1000 MG PO (09:08)
[2021-01-04] MEDS: Levothyroxine 75 MCG Tablet PO (09:08)
[2021-01-04] MEDS: guaiFENesin 1,200 MG Tablet 1200 MG PO (09:09)
[2021-01-04 09:14] VITALS: BP 125/66; PULSE 79; RESP 20; TEMP 36.4; O2SAT 93
--- NOTE | 2021-01-04 09:51 | PCM.DC ---
Discharge Instructions Diet Discharge Diet: Low fat / Low cholesterol, 1800 Calorie Control Diet and 2000 mg Sodium Diet Activity Discharge Activity: Return to Normal Activity Dressing / Incision Call your doctor if you observe: Fever of 101 or Higher, Coldness, Increased Pain, Numbness or Tingling, Change in Color, Inability to urinate, Inability to have a bowel movement, Using more than 1 pad per hour, Shortness of breath, Dizziness, Fainting spells, Swelling in the ankles, Chest pain, Prolonged hiccupping, Increased palpitations (irregular heartbeat), Calf discomfort and Uncontrolled pain Follow Up Care Test Results: Test results from this visit will be discussed in further detail at your follow-up appointment, if applicable. Discharge Plan Admission Admit Date/Time: 01/01/21 12:38 Primary Reason for Your Visit: Covid 19 pneumonia Attending Provider: Quinton Russell Primary Care Provider: Haydee Szymanski Consulting Providers: Gilbert Glez ; Joel Clemente ; Rg Blount ; Elvia Gilmore EXTENDED DAY TEACHER Instructions Additional Instructions / Restrictions: Discharge on home oxygen. Patient is ambulatory in home and in the community and requires home oxygen with portability. Follow with PCP as she might need CPAP for obstructive sleep apnea Discharge Orders/Prescriptions Prescriptions: New ascorbic acid (vitamin C) 500 mg Tablet 1,000 mg PO BREAKFAST Qty: 0 RF: 0 dexamethasone 4 mg Tablet 6 mg PO DAILY Qty: 11 RF: 0 Mucus Relief ER 1,200 mg Tablet Extended Release 12hr 1,200 mg PO BID Qty: 14 RF: 0 zinc sulfate 50 mg zinc (220 mg) Capsule 220 mg PO TID Qty: 0 RF: 0 Eliquis 2.5 mg tablet 2.5 mg PO BID Qty: 30 RF: 0 albuterol sulfate [ProAir HFA] 90 mcg/actuation HFA aerosol inhaler 2 puff inhalation Q4H PRN (Reason: SOB/Wheezing) Qty: 8.5 RF: 0 Continued sertraline 50 MG tablet 50 mg PO QHS RF: 0 levothyroxine 75 MCG tablet 75 mcg PO DAILY RF: 0 Held estradiol 1 mg tablet 1 mg PO DAILY Qty: 30 RF: 0 Hold Instructions: Hold for 2 weeks while the patient is on Eliquis. Referrals / Follow Up: Haydee Szymanski MD [Primary Care Provider] - Within 2 Weeks Disposition Disposition (needs filled in before D/C Order can be placed): Home, Self Care
--- NOTE | 2021-01-04 10:04 | PCM.DC.SUM ---
Providers Date of Admission: 01/01/21 Primary Care Physician: Dr. Haydee Szymanski MD Consultations 01/01/21 13:39 Consult: Infectious Disease Routine Consulting Provider: Gilbert Glez Reason for Consult: COVID 19 --> ? Baricitinib EMERGENT Consult: No Notified: Yes Date Notified: 01/01/21 Time Notified: 13:55 Method of Notification: Text Consult: Carcass Washer / Pulmonary Medicine Routine Consulting Provider: Pulmonary Medicine sebas Antelope Reason for Consult: Covid 19 EMERGENT Consult: No Notified: Yes Date Notified: 01/01/21 Time Notified: 12:44 Method of Notification: Verbal Reason For Visit: ACUTE HYPOXIC RESPIRATORY FAILURE Diagnosis Discharge Diagnosis (1) Acute and chronic respiratory failure with hypoxia: Status: Chronic Code(s): J96.21 - Acute and chronic respiratory failure with hypoxia (2) Acidosis, lactic: Status: Acute Code(s): E87.2 - Acidosis (3) Pneumonia due to COVID-19 virus: Status: Acute Code(s): U07.1 - COVID-19; J12.82 - Pneumonia due to coronavirus disease 2019 (4) RODRIGO (obstructive sleep apnea): Status: Chronic Code(s): G47.33 - Obstructive sleep apnea (adult) (pediatric) Medications at Discharge Home Medications sertraline 50 mg PO QHS 03/31/14 levothyroxine 75 mcg PO DAILY 01/19/15 estradiol 1 mg tablet 1 mg PO DAILY #30 tab 07/15/18 albuterol sulfate [ProAir HFA] 2 puff INHALATION Q4H PRN #8.5 g 01/04/21 apixaban [Eliquis] 2.5 mg PO BID #30 tab 01/04/21 ascorbic acid (vitamin C) 1,000 mg PO BREAKFAST #0 tab 01/04/21 dexamethasone 6 mg PO DAILY #11 tab 01/04/21 guaifenesin [Mucus Relief ER] 1,200 mg PO BID #14 tab 01/04/21 zinc sulfate 220 mg PO TID #0 cap 01/04/21 Hospital Course Summary of Care Provided Hospital Course: This 60-year-old female admitted with shortness of breath, nausea, headache myalgia and diarrhea, symptomatology consistent with COVID-19 infection. Patient had symptoms started on 12/21 and diagnosed COVID-19 on 12/27. She did not had monoclonal antibodies. Was hypoxic and tachypneic 83% on room air. She was admitted on [facility] with diagnosis of acute hypoxic respiratory failure secondary to bilateral COVID-19 pneumonia. She is being treated with Decadron. She not candidate for remdesivir or baricitinib. Urinary antigens are negative. Sputum culture and blood cultures are negative. On Mucinex incentive spirometry and Pep. Patient was being followed by carcass washer. Patient is on discharge on Decadron to complete a total of 10 days along with Eliquis 2.5 mg twice daily and Mucinex D. Patient is ambulatory in home and in the community and requires home oxygen with portability. ires 9 with ambulation I discussed with her that we need to get her to 6 L with ambulation prior to discharge and she is amenable and understands DM-2: Was treated with Lovenox while in the hospita. Advised to follow-up PCP for further management. Hypothyroidism -Continue levothyroxine -TSH is within normal limits RODRIGO -Continue CPAP 10 cmH2O at at bedtime Depression -Continue Zoloft History of abdominal hernia status post mesh -Stable DVT prophylaxis -Lovenox 40 mg twice daily CODE STATUS -Full code Discharge medication reconciliation done. Discharge follow-up instructions completed. Discharge process discussed with the patient and all questions were answered to patient's satisfaction. Total time spent, exact 35 minutes on discharge meds reconciliation, examination, coordination of care with nurses and ancillary staff, review of imaging and blood test and discussion with the patient on follow-up instructions Physical Exam Narrative Patient is 86% on ambient air at rest, 2 to 4 L O2 at rest. Requires 4 L of oxygen on ambulation. General: Alert, Oriented x3, Cooperative, morbid obesity BMI 40.2 kg/m? HEENT: Atraumatic, PERRLA, EOMI, Normocephalic Oral: No Gingival or Mucosal Lesions/ Ulcerations Neck: Supple, No JVD, Negative Carotid Bruits Lungs: Air entry diminished in bilateral lung bases. No crepitation/rhonchi Cardiovascular: Regular rate, Regular Rhythm, Normal S1, Normal S2, No murmurs Abdomen: Bowel Sounds Present, Soft, Non Tender, Non-Distended : No renal angle tenderness. No suprapubic tenderness. Extremities: No edema, Capillary Refill Less than 3 Seconds Skin: No rashes, No breakdown Musculoskeletal: No Tenderness to Palpation of Joints or Extremities Neurological: Cranial nerves II-XII grossly intact, DTR 2+/4 and Symmetrical, Neuro grossly intact Psych/Mental Status: Normal Affect, Appropriate. Medical Records Data Medical Nutrition Assessment Dietitian: Malnutrition Criteria Met Start: 01/02/21 14:01 Freq: Status: Active Protocol: Document 01/02/21 14:01 (Rec: 01/02/21 14:01 [id number]) Nutrition Malnutrition Evidence of Malnutrition Exists Yes Malnutrition (severe): Acute Illness/Injury Evidenced By Suboptimal Energy Intake ( Severe),Weight Loss (Severe) Clinical Problem Acute Disease or Injury Related Malnutrition Etiology severe acute malnutrition r/t inadequate oral intake w/ increased energy needs d/t COVID-19, resp. failure Signs/Symptoms as evidenced by estimated PO intake meeting <50% of estimated nutritional needs >1 week, unintentional wt loss of 15.2#/6.3% x12 days Status Active Problem Recommendation Dietitian Recommendations/Changes Regular diet, 120mL Glucerna ONS w/ meals d/t acute malnutrition Weight / BMI Weight Weight: 220 lb 1 oz Body Mass Index (BMI) 41.7 ABG / Lab / Microbiology Data Result Diagrams: 01/04/21 06:10 01/04/21 06:10 Laboratory: Laboratory Results - last 24 hr 01/03/21 11:17: POC Glucose 173 H 01/03/21 17:02: POC Glucose 326 H 01/03/21 20:26: POC Glucose 339 H 01/04/21 06:10: WBC 11.7 H, RBC 4.46, Hgb 13.7, Hct 40.2, MCV 90.1, MCH 30.7, MCHC 34.1, RDW Std Deviation 39.0, RDW Coeff of Yves 11.9, Plt Count 313, MPV 10.8, Immature Gran % (Auto) 0.800, Neut % (Auto) 80.2 H, Lymph % (Auto) 14.2 L, [place] % (Auto) 4.5, Eos % (Auto) 0.1, Baso % (Auto) 0.2, Absolute Neuts (auto) 9.4 H, Absolute Lymphs (auto) 1.66, Nucleated RBC % 0 01/04/21 06:10: Sodium 139, Potassium 3.8, Chloride 107, Carbon Dioxide 24.0, Anion Gap 8, BUN 11, Creatinine 0.64, Estim Creat Clear Calc 74.86, Est GFR (MDRD) Af Amer 122, Est GFR (MDRD) Non-Af 101, BUN/Creatinine Ratio 17.2, Glucose 163 H, Calcium 9.2 01/04/21 06:24: POC Glucose 165 H Microbiology: Microbiology 01/01/21 16:30 Sputum, Expectorated/Coughed Gram Stain - Final 01/01/21 16:30 Sputum, Expectorated/Coughed Respiratory Culture - Final Mixed normal respiratory parker. No Streptococcus pneumoniae, beta-hemolytic Streptococcus or Staphylococcus aureus isolated. 01/01/21 11:20 Blood Culture (Wb) - Anticubital Left Blood Culture - Preliminary No growth in 48 hours. 01/01/21 10:30 Blood Culture (Wb) - No Site/Description Given Blood Culture - Preliminary No growth in 48 hours. 01/01/21 16:30 Urine, Clean Catch Legionella Antigen - Final 01/01/21 16:30 Urine, Clean Catch Streptococcus pneumoniae Antigen (M - Final D/C Instructions Discharge Diet: Low fat / Low cholesterol, 1800 Calorie Control Diet and 2000 mg Sodium Diet Call your doctor if you observe: Fever of 101 or Higher, Coldness, Increased Pain, Numbness or Tingling, Change in Color, Inability to urinate, Inability to have a bowel movement, Using more than 1 pad per hour, Shortness of breath, Dizziness, Fainting spells, Swelling in the ankles, Chest pain, Prolonged hiccupping, Increased palpitations (irregular heartbeat), Calf discomfort and Uncontrolled pain Meaningful Use Info Meaningful Use Diagnoses (Choose all that apply): None applicable Discharge Plan Admission Admit Date/Time: 01/01/21 12:38 Primary Reason for Your Visit: Covid 19 pneumonia Attending Provider: Quinton Russell Primary Care Provider: Haydee Szymanski Consulting Providers: Gilbert Glez ; Joel Clemente ; Rg Blount ; Elvia Gilmore SENIOR UI SOFTWARE ENGINEER Instructions Additional Instructions / Restrictions: Discharge on home oxygen. Patient is ambulatory in home and in the community and requires home oxygen with portability. Follow with PCP as she might need CPAP for obstructive sleep apnea Discharge Orders/Prescriptions Prescriptions: New ascorbic acid (vitamin C) 500 mg Tablet 1,000 mg PO BREAKFAST Qty: 0 RF: 0 dexamethasone 4 mg Tablet 6 mg PO DAILY Qty: 11 RF: 0 Mucus Relief ER 1,200 mg Tablet Extended Release 12hr 1,200 mg PO BID Qty: 14 RF: 0 zinc sulfate 50 mg zinc (220 mg) Capsule 220 mg PO TID Qty: 0 RF: 0 Eliquis 2.5 mg tablet 2.5 mg PO BID Qty: 30 RF: 0 albuterol sulfate [ProAir HFA] 90 mcg/actuation HFA aerosol inhaler 2 puff inhalation Q4H PRN (Reason: SOB/Wheezing) Qty: 8.5 RF: 0 Continued sertraline 50 MG tablet 50 mg PO QHS RF: 0 levothyroxine 75 MCG tablet 75 mcg PO DAILY RF: 0 Held estradiol 1 mg tablet 1 mg PO DAILY Qty: 30 RF: 0 Hold Instructions: Hold for 2 weeks while the patient is on Eliquis. Referrals / Follow Up: Haydee Szymanski MD [Primary Care Provider] - Within 2 Weeks Disposition Disposition (needs filled in before D/C Order can be placed): Home, Self Care Charges/Coding Visit Charges Inpatient E&M: 84756 Disch Hosp
--- NOTE | 2021-01-04 10:24 | PN.CC_ITS ---
Assessment & Plan Assessment/Plan (1) Asthma: (2) RODRIGO (obstructive sleep apnea): (3) Abdominal wall fistula: PLAN: RECOMMENDATIONS: 1. Continue CPAP 10 cm of water with sleep with 2 L bleed 2. Wean supplemental oxygen as tolerated 3. Continue Decadron therapy. Not a candidate for PEDRO or Remdesivir therapy 4. Continue basal insulin 5. Encourage incentive spirometer, Acapella, out of bed and prone positioning as tolerated 6. Diuresis as tolerated by labs 7. Use bronchoscope if necessary for intubation 8. Obtain walking oximetry daily until able to be discharged 9. Patient hemodynamically stable on minimal nasal cannula oxygen. Will sign off. Please call if there are further issues IMPRESSIONS: 1. Acute hypoxic respiratory insufficiency secondary to COVID-19 Patient's D-dimer and pro calcitonin are within normal limits. Likelihood of concomitant PE and bacterial infection are relatively low. Unfortunately, patient is delayed in presentation at 11 days, so remdesivir and PEDRO therapy have been proven less effective. Patient should be placed on Decadron therapy. We will have to watch blood sugars closely. Patient does have a history of being a difficult intubation. Patient with only mild hypoxia at this time. Patient continues to improve. Patient should have a walking oximetry. If able to tolerate ambulation on 6 L or less, patient potentially could be discharged. Continue vitamin C and zinc. Okay to initiate bronchodilators if patient develops wheezing. Patient should follow-up with her medical clerical assistant in 4 to 6 weeks to evaluate for cessation of oxygen therapy. 2. Diabetes mellitus Patient not insulin-dependent at baseline, but is on Decadron. Lantus should be continued until Decadron is discontinued at 10 days. Continue to titrate as necessary. 3. RODRIGO/hypertension/hyperlipidemia/morbid obesity/extensive abdominal wall surgeries/nonvaccinated status/supplemental hormone therapy Complicates care, management, recovery and prognosis. Okay to continue with statin therapy from my perspective. Okay to continue with baseline antihypertensive medications from my perspective. Would not recommend continuation of hormonal therapy as patient is already at high risk for thrombotic complications given COVID-19. If patient persists in the need for hormonal therapy, could consider low-dose 10 a inhibitor for 4 to 6 weeks. Subjective Subjective Patient did well overnight. Patient states that she was able to ambulate to the bathroom and bathe herself. Patient did feel short of breath after coming back to the bed. Patient reports a productive cough, but no hemoptysis. Objective Data Objective Data Vital Signs: Vital Signs Temp Pulse Resp BP Pulse Ox 36.4 C L 79 20 H 125/66 H 93 01/04/21 09:14 01/04/21 09:14 01/04/21 09:14 01/04/21 09:14 01/04/21 09:14 Oxygen Flow Rate (L/min) [At 2 REST with Oxygen] Oxygen Flow Rate (L/min) [ 4 AMBULATING with Oxygen #3] Oxygen Flow Rate (L/min) [ 4 AMBULATING with Oxygen #2] Oxygen Flow Rate (L/min) [ 2 AMBULATING with Oxygen #1] Oxygen Flow Rate (L/min) [ 0 AMBULATING on Room Air] Oxygen Flow Rate (L/min) [At 0 REST on Room Air] Oxygen Flow Rate (L/min) 4 Oxygen Delivery Method Nasal Cannula Weight: 99.819 kg Body Mass Index (BMI) 41.7 Intake & Output: Intake and Output for Last 24 Hours 01/02/21 01/03/21 01/04/21 23:59 23:59 23:59 Intake Total 1140 / 1140 700 / 700 Output Total 800 / 800 Balance 340 / 340 700 / 700 Medical Nutrition Assessment Dietitian: Malnutrition Criteria Met Start: 01/02/21 14:01 Freq: Status: Active Protocol: Document 01/02/21 14:01 (Rec: 01/02/21 14:01 [id number]) Nutrition Malnutrition Evidence of Malnutrition Exists Yes Malnutrition (severe): Acute Illness/Injury Evidenced By Suboptimal Energy Intake ( Severe),Weight Loss (Severe) Clinical Problem Acute Disease or Injury Related Malnutrition Etiology severe acute malnutrition r/t inadequate oral intake w/ increased energy needs d/t COVID-19, resp. failure Signs/Symptoms as evidenced by estimated PO intake meeting <50% of estimated nutritional needs >1 week, unintentional wt loss of 15.2#/6.3% x12 days Status Active Problem Recommendation Dietitian Recommendations/Changes Regular diet, 120mL Glucerna ONS w/ meals d/t acute malnutrition Lab / Micro Data Result Diagrams: 01/04/21 06:10 01/04/21 06:10 Labs: Laboratory Results - last 24 hr 01/03/21 11:17: POC Glucose 173 H 01/03/21 17:02: POC Glucose 326 H 01/03/21 20:26: POC Glucose 339 H 01/04/21 06:10: WBC 11.7 H, RBC 4.46, Hgb 13.7, Hct 40.2, MCV 90.1, MCH 30.7, MCHC 34.1, RDW Std Deviation 39.0, RDW Coeff of Yves 11.9, Plt Count 313, MPV 10.8, Immature Gran % (Auto) 0.800, Neut % (Auto) 80.2 H, Lymph % (Auto) 14.2 L, [place] % (Auto) 4.5, Eos % (Auto) 0.1, Baso % (Auto) 0.2, Absolute Neuts (auto) 9.4 H, Absolute Lymphs (auto) 1.66, Nucleated RBC % 0 01/04/21 06:10: Sodium 139, Potassium 3.8, Chloride 107, Carbon Dioxide 24.0, Anion Gap 8, BUN 11, Creatinine 0.64, Estim Creat Clear Calc 74.86, Est GFR (MDRD) Af Amer 122, Est GFR (MDRD) Non-Af 101, BUN/Creatinine Ratio 17.2, Glucose 163 H, Calcium 9.2 01/04/21 06:24: POC Glucose 165 H Micro: Microbiology 01/01/21 16:30 Sputum, Expectorated/Coughed Gram Stain - Final 01/01/21 16:30 Sputum, Expectorated/Coughed Respiratory Culture - Final Mixed normal respiratory parker. No Streptococcus pneumoniae, beta-hemolytic Streptococcus or Staphylococcus aureus isolated. 01/01/21 11:20 Blood Culture (Wb) - Anticubital Left Blood Culture - Preliminary No growth in 48 hours. 01/01/21 10:30 Blood Culture (Wb) - No Site/Description Given Blood Culture - Preliminary No growth in 48 hours. 01/01/21 16:30 Urine, Clean Catch Legionella Antigen - Final 01/01/21 16:30 Urine, Clean Catch Streptococcus pneumoniae Antigen (M - Final Rhythm Strip Rhythm Strip: Sinus Rhythm Rate: 85 Ectopy: None Physical Exam Const alert, oriented x3 and no apparent distress Constitutional Narrative: On nasal cannula with slight shortness of breath General Appearance: cooperative, well developed and appears older than stated age Nutritional Appearance: morbidly obese HEENT normocephalic, head/scalp atraumatic and moist oral mucous membranes Eyes PERRL and EOMs intact bilaterally Neck full ROM and no lymphadenopathy Chest inspection of chest normal Chest: symmetrical chest wall rise; Negative for crepitus Resp Effort and Inspection: able to speak in complete sentences; Negative for actively coughing Auscultation: diminished lung sounds; Negative for rales, rhonchi or wheezes Percussion: Negative for dullness Cardio regular rate, regular rhythm, S1 normal heart sound, S2 normal heart sound, no murmurs, no rub and no gallops GI normal to inspection, nondistended, normoactive bowel sounds Inspection: central obesity and striae no CVA tenderness Extremity no clubbing, cyanosis or edema Skin no rashes or lesions noted Neuro oriented x3, CN's II-XII intact bilaterally, moves all extremities and no focal motor deficits Psych cooperative and affect normal Charges/Coding Visit Charges Inpatient E&M: 13981 Subs Hosp L2
--- NOTE | 2021-01-04 11:03 | CASEMGMT ---
Pt qualifies for home O2. Referral faxed to Karl and tc to Kimberly to make aware of referral. Also confirmed with Kimberly that [place] is in network with [facility] as it did not come up on website. She states that they are in network. She is aware that a tank will be taken from stock.
--- NOTE | 2021-01-04 12:56 | NURSING ---
Portable oxygen has been delivered and in pts room. This nurse went over how to use it.
[2021-01-04 12:57] VITALS: BP 131/79; PULSE 75; RESP 18; O2SAT 97
[2021-01-04 13:05] LABS: Bedside Glucose 251 mg/dL (70-110)
--- NOTE | 2021-01-07 14:58 | CASEMGMT ---
SOLE GARCIA Discharge Follow Up Phone Call: MARIA DE JESUSLopez: Charyl Strata: 2 Call Date: 01/07/21 Discharge Date: 01/04/21 Time of Call: 1458 Duration:<1 min Admitting Dx: acute hypoxic resp failure SOLE GARCIA attempted to complete follow up phone call after recent hospitalization, no answer. Left message with reason for the call, call back number on identified voicemail. Received tc from Kimberly at [facility] [place] who states that pt has called in to request package pick up of tanks as she has not been wearing O2 nor needs to.
== END 2021-01-04 14:00 | disposition home or self-care (01) | DRG 177 ==
LOC: ED 11:03 → ICU 13:19 → MS3 01-02 19:08
PROVIDERS: Internal Medicine Critical Care Medicine; Admitting Provider Internal Medicine; Emergency Provider Emergency Medicine; PCP Family Medicine; Visit Provider Internal Medicine
DX: U07.1 COVID-19 (principal); J12.82 Pneumonia due to coronavirus disease 2019; E43 Unspecified severe protein-calorie malnutrition; J96.01 Acute respiratory failure with hypoxia; Z68.41 Body mass index [BMI] 40.0-44.9, adult; E03.9 Hypothyroidism, unspecified; E11.9 Type 2 diabetes mellitus without complications; E66.01 Morbid (severe) obesity due to excess calories; E78.5 Hyperlipidemia, unspecified; F32.A Depression, unspecified; G47.33 Obstructive sleep apnea (adult) (pediatric); I10 Essential (primary) hypertension; J45.909 Unspecified asthma, uncomplicated; Z87.19 Personal history of other diseases of the digestive system; Z79.899 Other long term (current) drug therapy
CPT/HCPCS: 36415; 71045; 80048; 80053; 82550; 82962; 83605; 83615; 83735; 84100; 84145; 84443; 84484; 85025; 85379; 85384; 86140; 87040; 87070; 87205; 87449; 93005; 94667; 94668; 94762; 97802; 99251; 99285; J7040; A4216; G0463; J2405

== ENCOUNTER → 2021-11-18 | Outpatient (CLI) | payer OTHER, SELFPAY ==
--- NOTE | 2021-11-18 13:29 | BI_ITS ---
MAMMOGRAPHY - BILATERAL SCREENING 3-D TOMOSYNTHESIS REASON FOR EXAM: Female, 61 years old. screening for breast cancer PERTINENT HISTORY: No significant family history. TECHNIQUE: 2-D mammograms and 3-D Tomosynthesis of the breast (s) were performed. CAD was performed. COMPARISON: 10/04/2020 FINDINGS: The breast composition is composed of scattered fibroglandular density. Scattered benign calcifications are seen. No dense spiculated masses or suspicious microcalcifications are identified. No architectural distortion is identified. There is no skin thickening or retraction. There has been no significant change since the prior study. BI/SCRN MAMM (CAD)W/TRACY BILAT IMPRESSION: No mammographic signs of malignancy. Routine yearly mammograms recommended. ASSESSMENT CATEGORY: BIRADS Category 1: Negative. A letter regarding these results will be sent to the patient by the facility within 30 days. FOLLOW UP RECOMMENDATION: Yearly follow up mammogram recommended. (A) Approximately 10% of breast cancers are not detected by mammography. A normal mammogram should not delay biopsy of a clinically suspicious abnormality. Electronically Signed: Cleve Randle MD at 15:54 EDT ,
== END | disposition home or self-care (01) ==
LOC: OPBI 13:28
PROVIDERS: PCP Family Medicine; Visit Provider Nurse Practitioner Women's Health
DX: Z12.31 Encounter for screening mammogram for malignant neoplasm of breast (principal)
CPT/HCPCS: 77063; 77067

== ENCOUNTER → 2021-11-27 | Outpatient (CLI) | payer OTHER, SELFPAY ==
[2021-11-27 12:38] LABS: AST(SGOT) 28 U/L (15-37); Alanine Aminotransfer ALT/SGPT 30 U/L (13-56); Albumin, Serum 3.8 g/dL (3.2-5.0); Alkaline Phosphatase 149 U/L (45-117); Anion Gap 7 (5-15); BUN 9 mg/dL (7-18); Bilirubin, Direct 0.15 mg/dL (0.00-0.30); Calcium,Total 9.3 mg/dL (8.5-10.1); Chloride 104 mmol/L (98-107); Cholesterol 139 mg/dL (200); Creatinine, Serum 0.64 mg/dL (0.55-1.02); EST Glomerular Filtration Rate 100 mL/min (>60); Est Glom Filt Rate - Afr Amer 121 mL/min (>60); Globulin 4.1 g/dL (2.2-4.2); Glucose 196 mg/dL (74-106); High Density Lipoprotein 60 mg/dL; Potassium 3.7 mmol/L (3.5-5.1); Protein, Total 7.9 g/dL (6.4-8.2); Sodium Level 136 mmol/L (136-145); T4 Total, Thyroxin 11.3 ug/dL (4.8-13.9); Thyroid Stim Hormone (TSH) 1.52 uIU/mL (0.358-3.74); Triglycerides 166 mg/dL; Very Low Density Lipoprotein 33 mg/dL (5-40)
[2021-11-27 13:09] LABS: Microalbumin,Random Urine 8.4 mg/L (NO RANGE EST.); Microalbumin:Creatinine Ratio 19.3 mg/g CRE (<30 mg/g CRE)
[2021-11-27 21:50] LABS: Magnesium 1.5 mg/dL (1.6-2.6)
== END | disposition home or self-care (01) ==
LOC: MFPLAB 09:49
PROVIDERS: PCP Family Medicine; Referring Provider Family Medicine; Visit Provider Family Medicine
DX: E11.9 Type 2 diabetes mellitus without complications (principal); E03.9 Hypothyroidism, unspecified
CPT/HCPCS: 36415; 80048; 80061; 80076; 82043; 82570; 83735; 84436; 84443

== ENCOUNTER → 2022-09-24 | Outpatient (CLI) | payer OTHER, SELFPAY ==
[2022-09-24 16:41] LABS: Absolute Lymphocyte Count 2.86 X10^3/uL (0.83-4.51); Absolute Neutrophil Count 4.3 X10^3/uL (2.0-7.7); Basophil# 0.06 X10^3/uL; Basophil% 0.8 % (0-1); Eosinophil# 0.17 X10^3/uL; Eosinophils% 2.1 % (0-5); Hematocrit 39.7 % (37-47); Hemoglobin 13.5 g/dL (12.0-15.0); Lymphocyte # 2.86 X10^3/ul (0.83-4.51); Lymphocyte % 35.9 % (19-41); Mean Corpuscular Hgb 31.1 pg (27.0-32.0); Mean Corpuscular Volume 91.5 fL (81-99); Mean Platelet Vol. 11.1 fl (6.2-12.0); Monocyte# 0.51 X10^3/uL; Monocyte% 6.4 % (0-10); NRBC Flagged by Analyzer 0 % (0-5); Neutrophil # 4.33 X10^3/uL (2.7-7.7); Neutrophil % 54.4 % (47-70); Platelet Count 253 K/mm3 (150-450); RBC Distribution Width CV 12.2 % (11.6-14.6); RBC Distribution Width SD 40.6 fl (35.1-43.9); Red Blood Count 4.34 M/mm3 (4.2-5.4)
[2022-09-24 16:58] LABS: AST(SGOT) 20 U/L (15-37); Alanine Aminotransfer ALT/SGPT 30 U/L (13-56); Albumin, Serum 3.9 g/dL (3.2-5.0); Alkaline Phosphatase 165 U/L (45-117); Anion Gap 8 (5-15); BUN 10 mg/dL (7-18); BUN/Creat Ratio 15.7 RATIO (10-20); Calcium,Total 10.2 mg/dL (8.5-10.1); Chloride 105 mmol/L (98-107); Cholesterol 142 mg/dL (200); Creatinine, Serum 0.64 mg/dL (0.55-1.02); EST Glomerular Filtration Rate 101 mL/min (>60); Est Glom Filt Rate - Afr Amer 122 mL/min (>60); Globulin 4.1 g/dL (2.2-4.2); Glucose 182 mg/dL (74-106); High Density Lipoprotein 57 mg/dL; Potassium 4.2 mmol/L (3.5-5.1); Sodium Level 139 mmol/L (136-145); Triglycerides 250 mg/dL; Very Low Density Lipoprotein 50 mg/dL (5-40)
[2022-09-24 17:03] LABS: Microalbumin,Random Urine 9.8 mg/L (NO RANGE EST.); Microalbumin:Creatinine Ratio 9.5 mg/g CRE (<30 mg/g CRE)
[2022-09-25 15:19] LABS: Hemoglobin A1c 9.3 % (3.8-5.6)
== END | disposition home or self-care (01) ==
LOC: BIMLAB 15:31
PROVIDERS: PCP Internal Medicine; Referring Provider Internal Medicine; Visit Provider Internal Medicine
DX: E11.9 Type 2 diabetes mellitus without complications (principal); E03.9 Hypothyroidism, unspecified; E78.5 Hyperlipidemia, unspecified; I10 Essential (primary) hypertension
CPT/HCPCS: 36415; 80053; 80061; 82043; 82570; 83036; 84443; 85025

== ENCOUNTER → 2022-11-24 | Outpatient (CLI) | payer OTHER, SELFPAY ==
--- NOTE | 2022-11-24 07:13 | BI_ITS ---
MAMMOGRAPHY - BILATERAL SCREENING REASON FOR EXAM: Female, 62 years old. Routine annual screening examination. PERTINENT HISTORY: No reported personal or family history of breast cancer. Right breast stereotactic biopsy in 2019. TECHNIQUE: Digital bilateral breast tracy (3D mammographic acquisition) in the CC and MLO projections. 2-D mediolateral oblique (MLO) and craniocaudad (CC) views of both breasts were obtained. CAD: Full Field Digital Mammography with Computer Added Detection was performed. COMPARISON: Screening mammogram from 11/18/2021, 10/04/2020. FINDINGS: Breast Composition: There are scattered areas of fibroglandular density. There are no dominant masses or suspicious calcifications. No other significant abnormalities are identified. There has been no significant change since the prior study. BI/SCRN MAMM (CAD)W/TRACY BILAT IMPRESSION: Stable bilateral screening mammogram. Yearly follow-up mammogram recommended. (A) ASSESSMENT CATEGORY: BIRADS Category 1: Negative. A letter regarding these results will be sent to the patient by the facility within 30 days. Approximately 10% of breast cancers are not detected by mammography. A normal mammogram should not delay biopsy of a clinically suspicious abnormality. Electronically Signed: Doc Batres DO at 9:36 EDT ,
== END | disposition home or self-care (01) ==
PROVIDERS: PCP Internal Medicine; Referring Provider Nurse Practitioner Women's Health; Visit Provider Nurse Practitioner Women's Health
DX: Z12.31 Encounter for screening mammogram for malignant neoplasm of breast (principal)
CPT/HCPCS: 77063; 77067

== ENCOUNTER → 2023-04-02 | Outpatient (CLI) | payer MEDICAID, SELFPAY ==
[2023-04-02 12:35] LABS: Anion Gap 7 (5-15); BUN 14 mg/dL (7-18); BUN/Creat Ratio 29.4 RATIO (10-20); Chloride 109 mmol/L (98-107); Cholesterol 147 mg/dL (200); Creatinine, Serum 0.48 mg/dL (0.55-1.02); EST Glomerular Filtration Rate 141 mL/min (>60); Est Glom Filt Rate - Afr Amer 171 mL/min (>60); Glucose 97 mg/dL (74-106); High Density Lipoprotein 61 mg/dL; Potassium 4.3 mmol/L (3.5-5.1); Sodium Level 143 mmol/L (136-145); Triglycerides 152 mg/dL; Very Low Density Lipoprotein 30 mg/dL (5-40)
== END | disposition home or self-care (01) ==
LOC: BIMLAB 08:57
PROVIDERS: PCP Internal Medicine; Referring Provider Internal Medicine; Visit Provider Internal Medicine
DX: E11.9 Type 2 diabetes mellitus without complications (principal); I10 Essential (primary) hypertension; E78.5 Hyperlipidemia, unspecified
CPT/HCPCS: 36415; 80048; 80061; 83735

== ENCOUNTER → 2023-11-03 | Outpatient (CLI) | payer OTHER, SELFPAY ==
[2023-11-03 15:19] LABS: Absolute Lymphocyte Count 2.49 X10^3/uL (0.83-4.51); Absolute Neutrophil Count 3.9 X10^3/uL (2.0-7.7); Basophil# 0.04 X10^3/uL; Basophil% 0.6 % (0-1); Eosinophils% 1.4 % (0-5); Hematocrit 38.3 % (37-47); Hemoglobin 13.1 g/dL (12.0-15.0); Lymphocyte # 2.49 X10^3/ul (0.83-4.51); Lymphocyte % 35.4 % (19-41); Mean Corp Hgb Conc 34.2 g/dL (32-36); Mean Corpuscular Hgb 30.8 pg (27.0-32.0); Mean Corpuscular Volume 89.9 fL (81-99); Monocyte# 0.46 X10^3/uL; Monocyte% 6.5 % (0-10); NRBC Flagged by Analyzer 0 % (0-5); Neutrophil # 3.93 X10^3/uL (2.7-7.7); Platelet Count 268 K/mm3 (150-450); RBC Distribution Width CV 12.4 % (11.6-14.6); RBC Distribution Width SD 40.5 fl (35.1-43.9); Red Blood Count 4.26 M/mm3 (4.2-5.4)
[2023-11-03 16:50] LABS: Hemoglobin A1c 5.8 % (3.8-5.6)
[2023-11-03 17:08] LABS: ALB/GLOB Ratio 1.1 RATIO (0.9-2.4); AST(SGOT) 23 U/L (15-37); Alanine Aminotransfer ALT/SGPT 29 U/L (13-56); Albumin, Serum 4.1 g/dL (3.2-5.0); Alkaline Phosphatase 133 U/L (45-117); Anion Gap 7 (5-15); BUN 15 mg/dL (7-18); BUN/Creat Ratio 21.4 RATIO (10-20); Calcium,Total 9.6 mg/dL (8.5-10.1); Chloride 104 mmol/L (98-107); Cholesterol 141 mg/dL (200); EST Glomerular Filtration Rate 90 mL/min (>60); Est Glom Filt Rate - Afr Amer 109 mL/min (>60); Globulin 3.9 g/dL (2.2-4.2); Glucose 99 mg/dL (74-106); High Density Lipoprotein 69 mg/dL; Potassium 3.9 mmol/L (3.5-5.1); Sodium Level 138 mmol/L (136-145); Thyroid Stim Hormone (TSH) 1.47 uIU/mL (0.358-3.74); Triglycerides 115 mg/dL; Very Low Density Lipoprotein 23 mg/dL (5-40)
== END | disposition home or self-care (01) ==
LOC: BIMLAB 11:43
PROVIDERS: PCP Internal Medicine; Visit Provider Internal Medicine
DX: I10 Essential (primary) hypertension (principal); E11.9 Type 2 diabetes mellitus without complications
CPT/HCPCS: 36415; 80053; 80061; 83036; 84443; 85025

== ENCOUNTER → 2024-01-04 | Outpatient (CLI) | payer OTHER, SELFPAY | END | disposition home or self-care (01) | PROVIDERS: PCP Internal Medicine; Visit Provider Physician Assistant Surgical | DX: N39.0 Urinary tract infection, site not specified (principal) | CPT/HCPCS: 87086; 87088 ==

== ENCOUNTER → 2024-04-19 | Outpatient (CLI) | payer OTHER, SELFPAY ==
[2024-04-19 10:01] LABS: Absolute Lymphocyte Count 1.95 X10^3/uL (0.83-4.51); Absolute Neutrophil Count 3.2 X10^3/uL (2.0-7.7); Basophil# 0.04 X10^3/uL; Basophil% 0.7 % (0-1); Eosinophil# 0.12 X10^3/uL; Eosinophils% 2.1 % (0-5); Hematocrit 36.4 % (37-47); Hemoglobin 12.4 g/dL (12.0-15.0); Lymphocyte # 1.95 X10^3/ul (0.83-4.51); Lymphocyte % 34.4 % (19-41); Mean Corp Hgb Conc 34.1 g/dL (32-36); Mean Corpuscular Hgb 31.6 pg (27.0-32.0); Mean Corpuscular Volume 92.9 fL (81-99); Mean Platelet Vol. 10.7 fl (6.2-12.0); Monocyte# 0.38 X10^3/uL; Monocyte% 6.7 % (0-10); NRBC Flagged by Analyzer 0 % (0-5); Neutrophil # 3.17 X10^3/uL (2.7-7.7); Neutrophil % 55.9 % (47-70); Platelet Count 224 K/mm3 (150-450); RBC Distribution Width CV 13.1 % (11.6-14.6); RBC Distribution Width SD 43.9 fl (35.1-43.9); Red Blood Count 3.92 M/mm3 (4.2-5.4); White Blood Count 5.7 K/mm3 (4.4-11.0)
[2024-04-19 10:16] LABS: Vitamin D,25 Hydroxy 32.9 ng/mL
[2024-04-19 10:36] LABS: ALB/GLOB Ratio 0.8 RATIO (0.9-2.4); AST(SGOT) 16 U/L (15-37); Alanine Aminotransfer ALT/SGPT 14 U/L (13-56); Albumin, Serum 3.3 g/dL (3.2-5.0); Alkaline Phosphatase 98 U/L (45-117); Anion Gap 6 (5-15); BUN 14 mg/dL (7-18); BUN/Creat Ratio 19.5 RATIO (10-20); Calcium,Total 9.3 mg/dL (8.5-10.1); Chloride 108 mmol/L (98-107); Cholesterol 138 mg/dL (200); Creatinine, Serum 0.72 mg/dL (0.55-1.02); EST Glomerular Filtration Rate 87 mL/min (>60); Est Glom Filt Rate - Afr Amer 106 mL/min (>60); Globulin 3.9 g/dL (2.2-4.2); Glucose 119 mg/dL (74-106); High Density Lipoprotein 66 mg/dL; Magnesium 1.9 mg/dL (1.6-2.6); Potassium 3.9 mmol/L (3.5-5.1); Protein, Total 7.2 g/dL (6.4-8.2); Sodium Level 140 mmol/L (136-145); Triglycerides 221 mg/dL; Very Low Density Lipoprotein 44 mg/dL (5-40)
== END | disposition home or self-care (01) ==
LOC: MTLAB 07:56
PROVIDERS: PCP Family Medicine; Referring Provider Family Medicine; Visit Provider Family Medicine
DX: E11.59 Type 2 diabetes mellitus with other circulatory complications (principal); E03.9 Hypothyroidism, unspecified; M25.559 Pain in unspecified hip
CPT/HCPCS: 36415; 80053; 80061; 82306; 83735; 84443; 85025

== ENCOUNTER → 2025-01-27 | Outpatient (CLI) | payer OTHER, SELFPAY ==
--- NOTE | 2025-01-27 13:51 | ART_ITS ---
Reason For Study Reason For Study: Left leg cramps and enlargement Procedure A bilateral lower extremity continuous wave Doppler with analog waveform analysis and ankle brachial indexes. Left Segmental Pressures Left brachial= 130mmHg. Left posterior tibial artery = 172mmHg. Left dorsalis pedis artery = 163mmHg. Left digit = 122 mmHg. Right Segmental Pressures Right brachial= 134mmHg. Right posterior tibial artery = 181mmHg. Right dorsalis pedis artery = 172mmHg. Right digit = 119 mmHg. Indices The right ankle brachial index by the posterior tibial artery is 1.35. The right ankle brachial index by the dorsalis pedis is 1.28. The right digital-brachial index is 0.89. The left ankle brachial index by the posterior tibial artery is 1.28. The left ankle brachial index by the dorsalis pedis is 1.22. The left digital-brachial index is 0.91. VL/Ankle Brachial Index Interpretation Summary Right YEVGENIY 1.35, normal. TBI and Doppler/PVR waveforms of the right ankle normal at rest. Left YEVGENIY 1.28, normal. TBI and Doppler/PVR waveforms of the left ankle normal a t rest. Ordering Physician: Katie Escobar Referring Physician: KATIE ESCOBAR MD Performed By: Marely Smith RDCS/RVT
--- OUTSIDE RECORDS SUMMARY | 2025-01-27 15:14 | XMS RPT_ITS | CCD ---
Author Organization [facility] Care Team Providers Care Freight Solicitor Name Role Phone Dr. Haydee Szymanski Primary Care Provider Dr. Haydee Szymanski Referring Provider Dr. Thierno Ambriz Attending Provider [phone] Dr. Thierno Ambriz Primary Care Provider [phone] Dr. Thierno Ambriz Attending Provider [phone] Dr. Thierno Ambriz Referring Provider [phone] LYUBOV Yoon Attending Provider Thierno Ambriz Primary Care Unavailable Thierno Ambriz Attending Unavailable Thierno Ambriz Referring Unavailable Luz, Chalgenet Attending Unavailable Luz, Chalon Referring Unavailable Luz, Chalon Primary Care Unavailable Luz, Chalon Primary Care Unavailable Luz, Chalon Attending Unavailable Luz, Chalon Referring Unavailable Allergies Allergy Classification Reported Allergen(s) Allergy Type Date of Onset Reaction(s) Facility (6 sources) atorvastatin; Translations: [atorvastatin calcium] Drug Allergy 2 Other [facility] (5 sources) Codeine Drug Allergy 2 Vomiting [facility] (5 sources) Erythromycin Drug Allergy 2 Vomiting [facility] (6 sources) HYDROcodone; Translations: [hydrocodone bitartrate] Drug Allergy 2 Nausea/Vom/Diar [facility] (5 sources) levoFLOXacin Drug Allergy 2 Nausea/Vom/Diar [facility] (5 sources) metOLazone Drug Allergy 2 Other [facility] (6 sources) Sulfonamides (Antibiotic); Translations: [Sulfa (Sulfonamide Antibiotics)] Propensity to adverse reactions 2 Vomiting [facility] (5 sources) traMADol Drug Allergy 2 Vomiting [facility] (1 source) Codeine Drug Allergy 4 [facility] (1 source) Erythromycin Drug Allergy 4 [facility] (1 source) levoFLOXacin Drug Allergy 4 [facility] (1 source) metOLazone Drug Allergy 4 [facility] (1 source) traMADol Drug Allergy 4 [facility] Rep[facility] Medications Current Medications Medication Drug Class(es) Dates Sig (Normalized) Sig (Original) atorvastatin 20 mg oral tablet (5 sources) HMG-CoA Reductase Inhibitor Start: 07-02-2021 take 20 mg by mouth once daily Atorvastatin Active 20 MG PO DAILY July 01, 2021 11:00pm Sjotmjw-Kerhcgoxy-J inc (5 sources) Start: 07-02-2021 Bkrzusf-Bzsjbkmpm-F inc Active TABLET PO July 01, 2021 11:00pm Start: 07-02-2021 Calcium-Magnes ium-Zinc Active TABLET PO July 02, 2021 12:00am 0.5 ml dulaglutide 3 mg/ml auto-injector (6 sources) GLP-1 Receptor Agonist Start: 02-16-2023 Dulaglutide (Trulici ty) 1.5 mg/0.5 mL pen injector Active 0 .ROUTE .COMPLEX February 16, 2023 9:57am INJECT THE CONTENTS OF 1 PEN SUBCUTANEOUSLY ONCE A WEEK FOR 3 MONTHS. Start: 10-31-2022 End: 02-16-2023 Dulaglutide Discontinued 1.5 MG SC EVERY WEEK 6.5 90 December 02, 2022 2:07pm February 16, 2023 9:57am Start: 10-13-2022 End: 10-31-2022 Dulaglutide (Trulicity) 0.75 mg/0.5 mL pen injector Discontinued 0.75 MG SC EVERY WEEK 2 October 12, 2022 11:00pm October 31, 2022 4:08pm glipiZIDE 10 mg oral tablet (6 sources) Sulfonylurea Start: 09-26-2022 End: 02-02-2023 take 10 mg by mouth twice daily Glipizide Active 10 MG PO TWICE A DAY 180 February 02, 2023 3:06pm Start: 09-24-2022 End: 09-26-2022 take 5 mg by mouth twice daily Glipizide Discontinued 5 MG PO TWICE A DAY September 23, 2022 11:00pm September 26, 2022 8:41am hydroCHLOROthiazide 25 mg oral tablet (3 sources) Thiazide Diuretic Start: 09-24-2022 take 25 mg by mouth once daily Hydrochlorothiazide Active 25 MG PO DAILY September 23, 2022 11:00pm levothyroxine sodium 0.075 mg oral tablet (7 sources) l-Thyroxine Start: 01-19-2015 End: 10-09-2022 take 75 ug by mouth once daily Levothyroxine Active 75 MCG PO DAILY 90 October 09, 2022 12:49pm metFORMIN hydrochloride 1000 mg oral tablet (5 sources) Biguanide Start: 09-26-2022 take 1000 mg by mouth twice daily Metformin Active 1000 MG PO TWICE A DAY 180 September 26, 2022 8:41am Start: 09-24-2022 End: 09-26-2022 take 500 mg by mouth twice daily Metformin Discontinued 500 MG PO TWICE A DAY September 23, 2022 11:00pm September 26, 2022 8:41am sertraline 50 mg oral tablet (5 sources) Serotonin Reuptake Inhibitor Start: 03-31-2014 take 50 mg by mouth at bedtime Sertraline Active 50 MG PO AT BEDTIME March 31, 2014 12:00am triamcinolone acetonide 1 mg/ml topical cream (16 sources) Corticosteroid Start: 12-29-2022 Triamcinolone Acetonide Active 1 APPLIC TOPICAL TWICE A DAY 80 December 28, 2022 11:00pm Apply to Left Posterior Ear Start: 07-15-2018 End: 06-23-2019 Triamcinolone Acetonide Disc ontinued 1 APPLIC TOPICAL TWICE A DAY 15 November 09, 2018 9:04am June 23, 2019 7:10am vaginally as directed Completed/Discontinued Medications Medication Drug Class(es) Dates Sig (Normalized) Sig (Original) acetaminophen 325 mg / oxyCODONE hydrochloride 5 mg oral tablet (5 sources) Opioid Agonist Start: 01-09-2017 End: 07-15-2018 take 1 tablet by mouth every six hours as needed Oxycodone-Acetamin ophen Discontinued 1 TABLET PO EVERY 6 HOURS NEEDED January 09, 2017 4:44am July 15, 2018 9:55am [id number] 200 actuat albuterol 0.09 mg/actuat metered dose inhaler (5 sources) beta2-Adrenergic Agonist Start: 01-04-2021 End: 07-02-2021 take 1 puff(s) by inhalation every four hours Albuterol Sulfate (Proair Hfa) 90 mcg/actuation HFA aerosol inhaler Discontinued 2 PUFF INHALATION Q4H 8.5 January 03, 2021 11:00pm July 02, 2021 7:40am apixaban 2.5 mg oral tablet (5 sources) Factor Xa Inhibitor Start: 01-04-2021 End: 07-02-2021 take 1 tablet by mouth twice daily Apixaban (Eliquis) 2.5 mg tablet Discontinued 2.5 MG PO TWICE A DAY 30 January 03, 2021 11:00pm July 02, 2021 7:40am ascorbic acid 500 mg oral tablet (5 sources) Vitamin C Start: 01-04-2021 End: 07-02-2021 take 1000 mg by mouth at breakfast Ascorbic Acid (Vitamin C) Discontinued 1000 MG PO WITH BREAKFAST 0 January 03, 2021 11:00pm July 02, 2021 7:40am azithromycin 250 mg oral tablet (1 source) Macrolide Antimicrobial Start: 03-20-2023 End: 04-08-2023 Azithromycin Discontinued 0 PO .COMPLEX 6 March 20, 2023 12:00am April 08, 2023 1:33pm take 500 mg today (day 1), then 250 mg for 4 days (days 2-5) PO clobetasol propionate 0.0005 mg/mg topical gel (5 sources) Corticosteroid Start: 07-15-2018 End: 06-23-2019 Clobetasol Discontinued 1 APPLIC TOPICAL TWICE A DAY July 14, 2018 11:00pm June 23, 2019 7:10am dexamethasone 4 mg oral tablet (5 sources) Corticosteroid Start: 01-04-2021 End: 07-02-2021 take 6 mg by mouth once daily Dexamethasone Discontinued 6 MG PO DAILY January 03, 2021 11:00pm July 02, 2021 7:40am estradiol 0.5 mg oral tablet (15 sources) Estrogen Start: 07-02-2021 End: 09-24-2022 take 0.5 mg by mouth once daily Estradiol Discontinued 0.5 MG PO DAILY July 01, 2021 11:00pm September 24, 2022 1:48pm off 5 days; repeat cycle Start: 01-19-2015 End: 07-02-2021 take 1 mg by mouth once daily Estradiol Discontinued 1 MG PO DAILY July 15, 2018 10:01am July 02, 2021 7:52am On Hold: Hold for 2 weeks while the patient is on Eliquis. estrogens, conjugated (mcc) 0.625 mg/ml vaginal cream (5 sources) Estrogen Start: 07-15-2018 End: 11-09-2018 Conjugated Estrogens (Premarin) 0.625 mg/gram cream Discontinued 0 .Route .COMPLEX July 14, 2018 11:00pm November 09, 2018 8:03am Peasized amount at vaginal opening every other night X 4 weeks then twice a week fluconazole 150 mg oral tablet (10 sources) Azole Antifungal Start: 11-11-2021 End: 09-24-2022 Fluconazole Discontinued 150 MG PO .COMPLEX 2 November 10, 2021 11:00pm September 24, 2022 1:49pm 150 mg PO take one po now and repeat in 3 days Start: 11-23-2018 End: 06-23-2019 take 1 tablet by mouth every other day, then take 1 tablet by mouth every week Fluconazole Discontinued 150 MG PO .COMPLEX November 22, 2018 11:00pm June 23, 2019 7:10am 1 po every other day X 3 doses then 1 tab weekly X 6 months 12 hr guaiFENesin 1200 mg extended release oral tablet (5 sources) Start: 01-04-2021 End: 07-02-2021 take 1 tablet by mouth twice daily, then take 1 tablet by mouth every twelve hours Guaifenesin (Mucus Relief Er) 1,200 mg Tablet Extended Release 12hr Discontinued 1200 MG PO TWICE A DAY January 03, 2021 11:00pm July 02, 2021 7:41am methylPREDNISolone 4 mg oral tablet (1 source) Corticosteroid Start: 03-20-2023 End: 03-26-2023 take 1 tablet by mouth once Methylprednisolone (Medrol (Beto)) 4 mg tablets,dose pack Discontinued 4 MG PO per package directions 21 6 March 20, 2023 12:00am March 26, 2023 12:05am pioglitazone 15 mg oral tablet (1 source) Peroxisome Proliferator Receptor alpha Agonist, Peroxisome Proliferator Receptor gamma Agonist, Thiazolidinedione Start: 12-02-2022 End: 12-02-2022 take 15 mg by mouth once daily Pioglitazone Discontinued 15 MG PO DAILY 30 December 01, 2022 11:00pm December 02, 2022 2:06pm terconazole 4 mg/ml vaginal cream (5 sources) Azole Antifungal Start: 07-19-2018 End: 07-26-2018 Terconazole Discontinued 1 APPFUL VAGINAL AT BEDTIME 45 7 July 18, 2018 11:00pm July 25, 2018 11:09pm zinc sulfate 220 mg oral capsule (5 sources) Start: 01-04-2021 End: 07-02-2021 take 220 mg by mouth three times daily Zinc Sulfate Discontinued 220 MG PO THREE TIMES A DAY 0 January 03, 2021 11:00pm July 02, 2021 7:41am OTC Problems Active Problems Problem Classification Problem Date Documented Da te Episodic/Chronic Administrative/social admission (5 sources) Patient encounter status; Translations: [Other specified counseling] 06-28-2020 Episodic Allergic reactions (2 sources) Inflammatory dermatosis; Translations: [Dermatitis, unspecified] 12-29-2022 Episodic Asthma (2 sources) Asthmatic bronchitis; Translations: [Unspecified asthma with (acute) exacerbation] 03-20-2023 Chronic Diabetes mellitus with complications (1 source) Type 2 diabetes mellitus with other circulatory complications; Translations: [Type 2 diabetes mellitus with other circulatory complications] Onset: 05-12-2024 Chronic Diabetes mellitus without complication (12 sources) Diabetes mellitus; Translations: [Type 2 diabetes mellitus without complications] 01-21-2015 Chronic Disorders of lipid metabolism (8 sources) Hyperlipidemia; Translations: [Hyperlipidemia, unspecified] 01-21-2015 Chronic Essential hypertension (9 sources) Hypertensive disorder; Translations: [Essential (primary) hypertension] 01-21-2015 Chronic Fluid and electrolyte disorders (5 sources) Lactic acidosis; Translations: [Acidosis] 01-12-2021 Episodic Thyroid disorders (8 sources) Hypothyroidism; Translations: [Hypothyroidism, unspecified] 01-21-2015 Chronic Varicose veins of lower extremity (1 source) Asymptomatic varicose veins of unspecified lower extremity; Translations: [Asymptomatic varicose veins of unspecified lower extremity] Onset: 01-18-2025 Episodic Past or Other Problems Problem Classification Problem Date Documented Da te Episodic/Chronic Unclassified (5 sources) bowel blockage 10-24-2021 Unclassified (5 sources) hernia repair with mesh 10-24-2021 Unclassified (5 sources) mesh removal 10-24-2021 Unclassified (5 sources) partial bowel removal 10-24-2021 Results Test Name Value Interpretation Reference Range Facility CBC W/Diff, Automatedon 04-06 Absolute Lymph 1.95 X10 3/uL Normal 0.83-4.51 [facility] Comment on above: Order Comment: Order Date: 04/18/24 Order Info: [id number] - CBCD Performed By: #### L 500.4050, L100.0100, L500.4100, L506.1000, [id number] #### [facility] [address], [address] Absolute Neut 3.2 X10 3/uL Normal 2.0-7.7 [facility] Comment on above: Order Comment: Order Date: 04/18/24 Order Info: [id number] - CBCD Performed By: #### L 500.4050, L100.0100, L500.4100, L506.1000, [id number] #### [facility] [address] [place], [address] Basophils/100 WBC (Bld) 0.7 % Normal 0-1 [facility] Comment on above: Order Comment: Order Date: 04/18/24 Order Info: [id number] - CBCD Performed By: #### L 500.4050, L100.0100, L500.4100, L506.1000, [id number] #### [facility] [address] [place], [address] Eosinophils/100 WBC (Bld) 2.1 % Normal 0-5 [facility] Comment on above: Order Comment: Order Date: 04/18/24 Order Info: [id number] - CBCD Performed By: #### L 500.4050, L100.0100, L500.4100, L506.1000, [id number] #### [facility] [address], [address] Erythrocyte distribution width (RBC) [Ratio] 13.1 % Normal 11.6-14.6 [facility] Comment on above: Order Comment: Order Date: 04/18/24 Order Info: [id number] - CBCD Performed By: #### L 500.4050, L100.0100, L500.4100, L506.1000, [id number] #### [facility] [address] [place], [address] Hematocrit (Bld) [Volume fraction] 36.4 % Low 37-47 [facility] Comment on above: Order Comment: Order Date: 04/18/24 Order Info: [id number] - CBCD Performed By: #### L 500.4050, L100.0100, L500.4100, L506.1000, [id number] #### [facility] [address] [place], [address] Hemoglobin (Bld) [Mass/Vol] 12.4 g/dL Normal 12.0-15.0 [facility] Comment on above: Order Comment: Order Date: 04/18/24 Order Info: [id number] - CBCD Performed By: #### L 500.4050, L100.0100, L500.4100, L506.1000, [id number] #### [facility] [address] [place], [address] IG% 0.200 Normal 0.0-0.9 [facility] Comment on above: Order Comment: Order Date: 04/18/24 Order Info: [id number] - CBCD Result Comment: IG% - Immature Granulocytes (promyelocytes, myelocytes and metamyelocytes) > 1% indicates that a LEFT SHIFT is Present. Performed By: #### L 500.4050, L100.0100, L500.4100, L506.1000, [id number] #### [facility] [address] [place], [address] Lymphocytes/100 WBC (Bld) 34.4 % Normal 19-41 [facility] Comment on above: Order Comment: Order Date: 04/18/24 Order Info: [id number] - CBCD Performed By: #### L 500.4050, L100.0100, L500.4100, L506.1000, [id number] #### [facility] [address] [place], [address] MCH (RBC) [Entitic mass] 31.6 pg Normal 27.0-32.0 [facility] Comment on above: Order Comment: Order Date: 04/18/24 Order Info: [id number] - CBCD Performed By: #### L 500.4050, L100.0100, L500.4100, L506.1000, [id number] #### [facility] [address] [place], [address] MCHC (RBC) [Mass/Vol] 34.1 g/dL Normal 32-36 [facility] Comment on above: Order Comment: Order Date: 04/18/24 Order Info: [id number]- - CBCD Performed By: #### L 500.4050, L100.0100, L500.4100, L506.1000, [id number] #### [facility] [address] [place], [address] MCV (RBC) [Entitic vol] 92.9 fL Normal 81-99 [facility] Comment on above: Order Comment: Order Date: 04/18/24 Order Info: [id number] - CBCD Performed By: #### L 500.4050, L100.0100, L500.4100, L506.1000, [id number] #### [facility] [address] [place], [address] Monocytes/100 WBC (Bld) 6.7 % Normal 0-10 [facility] Comment on above: Order Comment: Order Date: 04/18/24 Order Info: [id number] - CBCD Performed By: #### L 500.4050, L100.0100, L500.4100, L506.1000, [id number] #### [facility] [address] [place], [address] Neutrophils/100 WBC (Bld) 55.9 % Normal 47-70 [facility] Comment on above: Order Comment: Order Date: 04/18/24 Order Info: [id number] - CBCD Performed By: #### L 500.4050, L100.0100, L500.4100, L506.1000, [id number] #### [facility] [address] [place], [address] Nucleated RBC (Bld) [#/Vol] 0 10*3/uL Normal 0-5 [facility] Comment on above: Order Comment: Order Date: 04/18/24 Order Info: [id number] - CBCD Performed By: #### L 500.4050, L100.0100, L500.4100, L506.1000, [id number] #### [facility] [address] [place], [address] Platelet mean volume (Bld) [Entitic vol] 10.7 fL Normal 6.2-12.0 [facility] Comment on above: Order Comment: Order Date: 04/18/24 Order Info: [id number] - CBCD Performed By: #### L 500.4050, L100.0100, L500.4100, L506.1000, [id number] #### [facility] [address] [place], [address] Platelets (Bld) [#/Vol] 224 10*3/uL Normal 150-450 [facility] Comment on above: Order Comment: Order Date: 04/18/24 Order Info: [id number] - CBCD Performed By: #### L 500.4050, L100.0100, L500.4100, L506.1000, [id number] #### [facility] [address] [place], [address] RBC (Bld) [#/Vol] 3.92 10*6/uL Low 4.2-5.4 [facility] Comment on above: Order Comment: Order Date: 04/18/24 Order Info: [id number] - CBCD Performed By: #### L 500.4050, L100.0100, L500.4100, L506.1000, [id number] #### [facility] [address] [place], [address] RDW SD 43.9 fl Normal 35.1-43.9 [facility] Comment on above: Order Comment: Order Date: 04/18/24 Order Info: [id number] - CBCD Performed By: #### L 500.4050, L100.0100, L500.4100, L506.1000, [id number] #### [facility] [address] [place], [address] WBC (Bld) [#/Vol] 5.7 10*3/uL Normal 4.4-11.0 [facility] Comment on above: Order Comment: Order Date: 04/18/24 Order Info: [id number] - CBCD Performed By: #### L 500.4050, L100.0100, L500.4100, L506.1000, [id number] #### [facility] [address] [place], [address] Comprehensive Metabolic Prof ilon 04-19-2024 Albumin [Mass/Vol] 3.3 g/dL Normal 3.2-5.0 [facility] Comment on above: Order Comment: Order Date: 04/18/24 Order Info: [id number] - CMP Order Info: [id number] - LIPID Order Info: [id number] - MG Order Info: [id number] - TSH Performed By: #### L 500.4050, L100.0100, L500.4100, L506.1000, [id number] #### [facility] [address] [place], [address] Albumin/Globulin [Mass ratio] 0.8 {ratio} Low 0.9-2.4 [facility] Comment on above: Order Comment: Order Date: 04/18/24 Order Info: [id number] - CMP Order Info: [id number] - LIPID Order Info: [id number] - MG Order Info: [id number] - TSH Performed By: #### L 500.4050, L100.0100, L500.4100, L506.1000, [id number] #### [facility] [address] [place], [address] ALK P 98 U/L Normal 45-117 [facility] Comment on above: Order Comment: Order Date: 04/18/24 Order Info: [id number] - CMP Order Info: [id number] - LIPID Order Info: [id number] - MG Order Info: [id number] - TSH Performed By: #### L 500.4050, L100.0100, L500.4100, L506.1000, L501.9520 #### [facility] [address] [place], [address] ALT [Catalytic activity/Vol] 14 U/L Normal 13-56 [facility] Comment on above: Order Comment: Order Date: 04/18/24 Order Info: [id number] - CMP Order Info: [id number] - LIPID Order Info: [id number] - MG Order Info: [id number] - TSH Performed By: #### L 500.4050, L100.0100, L500.4100, L506.1000, L501.9520 #### [facility] [address] [place], [address] AST [Catalytic activity/Vol] 16 U/L Normal 15-37 [facility] Comment on above: Order Comment: Order Date: 04/18/24 Order Info: [id number] - CMP Order Info: [id number] - LIPID Order Info: [id number] - MG Order Info: [id number] - TSH Performed By: #### L 500.4050, L100.0100, L500.4100, L506.1000, L501.9520 #### [facility] [address] [place], [address] Bilirubin [Mass/Vol] 0.40 mg/dL Normal 0.20-1.00 [facility] Comment on above: Order Comment: Order Date: 04/18/24 Order Info: [id number] - CMP Order Info: [id number] - LIPID Order Info: [id number] - MG Order Info: [id number] - TSH Result Comment: For patients on eltrombopag therapy, use of Dimension Hortense TBIL is not recommended. Performed By: #### L 500.4050, L100.0100, L500.4100, L506.1000, L501.9520 #### [facility] [address] [place], [address] BUN/CRE 19.5 RATIO Normal 10-20 [facility] Comment on above: Order Comment: Order Date: 04/18/24 Order Info: [id number] - CMP Order Info: [id number] - LIPID Order Info: [id number] - MG Order Info: [id number] - TSH Performed By: #### L 500.4050, L100.0100, L500.4100, L506.1000, L501.9520 #### [facility] [address] [place], [address] CA,Total 9.3 mg/dL Normal 8.5-10.1 [facility] Comment on above: Order Comment: Order Date: 04/18/24 Order Info: [id number] - CMP Order Info: [id number] - LIPID Order Info: [id number] - MG Order Info: 3 - TSH Performed By: #### L 500.4050, L100.0100, L500.4100, L506.1000, L501.9520 #### [facility] [address] [place], [address] Chloride [Moles/Vol] 108 mmol/L High 98-107 [facility] Comment on above: Order Comment: Order Date: 04/18/24 Order Info: [id number] - CMP Order Info: [id number] - LIPID Order Info: [id number] - MG Order Info: 3 - TSH Performed By: #### L 500.4050, L100.0100, L500.4100, L506.1000, L501.9520 #### [facility] [address] [place], [address] CO2 [Moles/Vol] 26.0 mmol/L Normal 21.0-32.0 [facility] Comment on above: Order Comment: Order Date: 04/18/24 Order Info: [id number] - CMP Order Info: [id number] - LIPID Order Info: [id number] - MG Order Info: 3 - TSH Performed By: #### L 500.4050, L100.0100, L500.4100, L506.1000, L501.9520 #### [facility] [address] [place], [address] Creatinine [Mass/Vol] 0.72 mg/dL Normal 0.55-1.02 [facility] Comment on above: Order Comment: Order Date: 04/18/24 Order Info: [id number] - CMP Order Info: [id number] - LIPID Order Info: [id number] - MG Order Info: [id number] - TSH Result Comment: The validity of the calculated GFR GFRAA in patients over 70 years has not been determined. Clinical correlation is essential. Performed By: #### L 500.4050, L100.0100, L500.4100, L506.1000, L501.9520 #### [facility] [address] [place], [address] EST GFR - AA 106 mL/min Normal >60 [facility] Comment on above: Order Comment: Order Date: 04/18/24 Order Info: [id number] - CMP Order Info: [id number] - LIPID Order Info: [id number] - MG Order Info: [id number] - TSH Result Comment: Afri can [place] GFR Calc Performed By: #### L 500.4050, L100.0100, L500.4100, L506.1000, L501.9520 #### [facility] [address] [place], [address] GAP 6 Normal 5-15 [facility] Comment on above: Order Comment: Order Date: 04/18/24 Order Info: [id number] - CMP Order Info: [id number] - LIPID Order Info: [id number] - MG Order Info: [id number] - TSH Performed By: #### L 500.4050, L100.0100, L500.4100, L506.1000, L501.9520 #### [facility] [address] [place], [address] GFR/1.73 sq M.predicted among non-blacks MDRD (S/P/Bld) [Vol rate/Area] 87 mL/min/{1.73_m2} Normal >60 [facility] [facility] Comment on above: Order Comment: Order Date: 04/18/24 Order Info: 07-1 - CMP Order Info: [id number] - LIPID Order Info: [id number] - MG Order Info: [id number] - TSH Result Comment: Non- GFR Calc Performed By: #### L 500.4050, L100.0100, L500.4100, L506.1000, L501.9520 #### [facility] [address], [address] Globulin (S) [Mass/Vol] 3.9 g/dL Normal 2.2-4.2 [facility] Comment on above: Order Comment: Order Date: 04/18/24 Order Info: [id number] - CMP Order Info: [id number] - LIPID Order Info: [id number] - MG Order Info: [id number] - TSH Performed By: #### L 500.4050, L100.0100, L500.4100, L506.1000, L501.9520 #### [facility] [address] [place], [address] Glucose [Mass/Vol] 119 mg/dL High 74-106 [facility] Comment on above: Order Comment: Order Date: 04/18/24 Order Info: [id number] - CMP Order Info: [id number] - LIPID Order Info: [id number] - MG Order Info: [id number] - TSH Result Comment: Fast ing Glucose result from 100 to 125 mg/dL suggests IMPAIRED HOMEOSTASIS per A.D.A. criteria. Performed By: #### L 500.4050, L100.0100, L500.4100, L506.1000, L501.9520 #### [facility] [address] [place], [address] Potassium [Moles/Vol] 3.9 mmol/L Normal 3.5-5.1 [facility] Comment on above: Order Comment: Order Date: 04/18/24 Order Info: [id number] - CMP Order Info: [id number] - LIPID Order Info: [id number] - MG Order Info: [id number] - TSH Performed By: #### L 500.4050, L100.0100, L500.4100, L506.1000, L501.9520 #### [facility] [address] [place], [address] Sodium [Moles/Vol] 140 mmol/L Normal 136-145 [facility] Comment on above: Order Comment: Order Date: 04/18/24 Order Info: [id number] - CMP Order Info: [id number] - LIPID Order Info: [id number] - MG Order Info: 3 - TSH Performed By: #### L 500.4050, L100.0100, L500.4100, L506.1000, L501.9520 #### [facility] [address] [place], [address] T PROT 7.2 g/dL Normal 6.4-8.2 [facility] Comment on above: Order Comment: Order Date: 04/18/24 Order Info: [id number] - CMP Order Info: [id number] - LIPID Order Info: [id number] - MG Order Info: [id number] - TSH Performed By: #### L 500.4050, L100.0100, L500.4100, L506.1000, L501.9520 #### [facility] [address] [place], [address] Urea nitrogen [Mass/Vol] 14 mg/dL Normal 7-18 [facility] Comment on above: Order Comment: Order Date: 04/18/24 Order Info: [id number] - CMP Order Info: [id number] - LIPID Order Info: [id number] - MG Order Info: 3016-3 - TSH Performed By: #### L 500.4050, L100.0100, L500.4100, L506.1000, L501.9520 #### [facility] [address] [place], [address] Lipid Profileon 04-19-2024 Cholesterol [Mass/Vol] 138 mg/dL Normal 200 [facility] Comment on above: Order Comment: Order Date: 04/18/24 Order Info: [id number] - CMP Order Info: [id number] - LIPID Order Info: [id number] - MG Order Info: [id number] - TSH Result Comment: <200 mg/dL Desirable 200-240 mg/dL Borderline >240 mg/dL High Risk Performed By: #### L 500.4050, L100.0100, L500.4100, L506.1000, L501.9520 #### [facility] [address] [place], [address] Cholesterol in HDL [Mass/Vol] 66 mg/dL Normal [facility] Comment on above: Order Comment: Order Date: 04/18/24 Order Info: [id number] - CMP Order Info: [id number] - LIPID Order Info: [id number] - MG Order Info: [id number] - TSH Result Comment: The drugs N-Acetylcysteine and Metamizole may falsely depress this assay. Reference Range HDL <40 mg/dL Low HDL Cholesterol HDL >or= 60 mg/dL High HDL Cholesterol Performed By: #### L 500.4050, L100.0100, L500.4100, L506.1000, L501.9520 #### [facility] [address] [place], [address] Cholesterol in LDL [Mass/Vol] 28 mg/dL Normal 0-130 [facility] Comment on above: Order Comment: Order Date: 04/18/24 Order Info: [id number] - CMP Order Info: [id number] - LIPID Order Info: [id number] - MG Order Info: [id number] - TSH Performed By: #### L 500.4050, L100.0100, L500.4100, L506.1000, L501.9520 #### [facility] [address] [place], [address] Cholesterol in VLDL [Mass/Vol] 44 mg/dL High 5-40 [facility] Comment on above: Order Comment: Order Date: 04/18/24 Order Info: [id number] - CMP Order Info: [id number] - LIPID Order Info: [id number] - MG Order Info: [id number] - TSH Performed By: #### L 500.4050, L100.0100, L500.4100, L506.1000, L501.9520 #### [facility] [address] [place], [address] Triglyceride [Mass/Vol] 221 mg/dL High [facility] Comment on above: Order Comment: Order Date: 04/18/24 Order Info: [id number] - CMP Order Info: [id number] - LIPID Order Info: [id number] - MG Order Info: [id number] - TSH Result Comment: The drugs N-Acetylcysteine and Metamizole may falsely depress this assay. Serum Triglycerides Reference Interval Normal <150 mg/dL Borderline high 150 - 199 mg/dL High 200 - 499 mg/dL Very High > or = 500 mg/dL Performed By: #### L 500.4050, L100.0100, L500.4100, L506.1000, L501.9520 #### [facility] [address] [place], [address] Magnesiumon 04-19-2024 Magnesium [Mass/Vol] 1.9 mg/dL Normal 1.6-2.6 [facility] Comment on above: Order Comment: Order Date: 04/18/24 Order Info: [id number] - CMP Order Info: [id number] - LIPID Order Info: [id number] - MG Order Info: [id number] - TSH Performed By: #### L 501.5200 #### [facility] [address] [place], [place], [address] Thyroid Stim Hormone (TSH)on 04-19-2024 TSH 3.140 uIU/mL Normal 0.358-3.740 [facility] Comment on above: Order Comment: Order Date: 04/18/24 Order Info: [id number] - CMP Order Info: [id number] - LIPID Order Info: [id number] - MG Order Info: [id number] - TSH Performed By: #### L 500.4050, L100.0100, L500.4100, L506.1000, L501.9520 #### [facility] [address] [place], [place], [id number] Vitamin D,25 Hydroxyon 04-19 Vitamin D 25-OH 32.9 ng/mL Normal [facility] Comment on above: Order Comment: Order Date: 04/18/24 Order Info: [id number] - VITD25 Result Comment: Sarah min D 25(OH) Status Range Deficiency <20 ng/mL (50nmol/L) Insufficiency 20 - 30 ng/mL (50 - 75 nmol/L) Sufficiency 30 - 100 ng/mL (75 - 250 nmol/L) Toxicity >100 ng/mL (>250 nmol/L) Performed By: #### L 500.4050, L100.0100, L500.4100, L506.1000, L501.9520 #### [facility] [address], [address] Internal Medicine Office Vis iton 02-25-2024 Internal Medicine Office Visit [facility] [address] [place] [address] [place] [address] OFFICE VISIT Date of Service: 02/25/24 MR#: [id number] Acct: [id number] Name: MADDY BENEDICT Rep #: [id number] : 1960 Provider: Dr. Thierno mckinley MD Age/Sex: 63/F [place] [facility] [place] [facility] [place]: Signed Intake Vital Signs 11/06/23 09:06 02/25/24 16:01 Height 5 ft 2 in 5 ft 2 in Weight: 242 lb BMI 44.2 BP 120/54 L Blood Pressure Location Lt brachial Position Sitting Respiration 14 Pulse 73 Pulse Source Monitor Temp 97.0 F L Temp Source Temporal Pulse Oximetry (%) 99 Oxygen Delivery Method room air Intake Visit Reasons: 3 M FU Chief Complaint: 3 MO FU Accompanied by: Self Is patient in pain?: No Allergies atorvastatin calcium (From Lipitor) Adverse Reaction (Intermediate, Verified 02/25/24 16:03) Other erythromycin base Adverse Reaction (Intermediate, Verified 02/25/24 16:03) Vomiting levofloxacin (From Levaquin) Adverse Reaction (Intermediate, Verified 02/25/24 16:03) Nausea/Vom/Diarrhea codeine Adverse Reaction (Verified 02/25/24 16:03) Vomiting hydrocodone bitartrate (From Vicodin) Adverse Reaction (Verified 02/25/24 16:03) Nausea/Vom/Diarrhea metolazone (From Zaroxolyn) Adverse Reaction (Verified 02/25/24 16:03) Other Sulfa (Sulfonamide Antibiotics) Adverse Reaction (Verified 02/25/24 16:03) Vomiting tramadol Adverse Reaction (Verified 02/25/24 16:03) Vomiting Medications ???Medication ???Instructions ???Recorded ???Confirmed ???Type uftblqq-artqoufed-o inc tablet tab PO 07/02/21 02/25/24 History triamcinolone acetonide 0.1 % 1 applic topical BID PRN rash #80 12/29/22 02/25/24 Rx topical cream grams ondansetron 4 mg disintegrating 4 mg PO Q6H #30 tabs 07/07/23 02/25/24 Rx tablet meloxicam 15 mg tablet 15 mg PO DAILY PRN pain #60 tabs 11/06/23 02/25/24 Rx atorvastatin 20 mg tablet 20 mg PO DAILY #90 tabs 11/23/23 02/25/24 Rx glipizide 10 mg tablet 10 mg PO BID 3 months #180 tabs 11/23/23 02/25/24 Rx hydrochlorothiazide 25 mg tablet 25 mg PO DAILY #90 tabs 11/23/23 02/25/24 Rx levothyroxine 75 mcg tablet 75 mcg PO DAILY thyroid #90 tabs 11/23/23 02/25/24 Rx metformin 1,000 mg tablet 1,000 mg PO BID #180 tabs 11/23/23 02/25/24 Rx pioglitazone 30 mg tablet 30 mg PO DAILY #90 tabs 11/23/23 02/25/24 Rx sertraline 50 mg tablet 50 mg PO QHS depression #90 tabs 11/23/23 02/25/24 Rx phenazopyridine 200 mg tablet 200 mg PO TID PRN pain 6 doses #7 01/04/24 02/25/24 Rx (Pyridium) tabs albuterol sulfate 90 mcg/actuation 2 puff inhalation Q6H PRN 02/25/24 02/25/24 Rx aerosol inhaler shortness of breath or wheezing 3 months #8.5 grams PFSH Medical History (Updated 02/25/24 @ 17:[address] Thierno Ambriz MD) Right shoulder pain Dermatitis Type 2 diabetes mellitus Pneumonia due to COVID-19 virus Acute and chronic respiratory failure with hypoxia Diabetes type 2, controlled Lichen sclerosus Abdominal wall fistula RODRIGO (obstructive sleep apnea) Asthma Surgical History partial bowel removal mesh removal hernia repair with mesh Puncture wound of small intestine, open bowel blockage H/O: hysterectomy Family History Mother Hypertension Father Lung disease Social History adopted: No household members: spouse number of children: 2 current occupational status: unemployed sexually active: Yes Smoking Status: Never smoker alcohol intake: never substance use type: does not use well-balanced diet: about half the time caffeine: Yes (5 cups q day) what type of physical activity do you participate in: none seatbelt use: always do you feel safe at home: Yes 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 Also has some concerns. At her last visit, due to significant cost of Trulicity, she was taken off Trulicity and started on Actos. Also on glipizide and metformin. She reports weight gain and lower extremity edema since going on Actos. A1c up from 5.8-6.4. Continues to take her medication consistently. History of hypertension, blood pressure today at 120/54 mmHg. Currently on hydrochlorothiazide . No chest pain, palpitation or shortness of breath. Other chronic conditions are stable. ROS Const Constitutional: Positive for fatigue, weight change (25 lb gain last 3 mos) and change in appetite (Increased); No body ache, chills, excessive sweating, fever(s), frequent falls, headache(s), snoring, sleep problems or abnormal sleep pattern Eyes Eyes: No change in vision, dry (more content not included)... Normal [facility] Basophil percentageOrdered B y: Thierno Ambriz on 04-02-2023 Chloride [Moles/Vol] 109 mmol/L 98-107 [facility] Cholesterol [Mass/Vol] 147 mg/dL <200 [facility] Comment on above: <200 mg/dL Desirable 200-240 mg/dL Borderline >240 mg/dL High Risk Glucose [Mass/Vol] 97 mg/dL 74-106 [facility] Potassium [Moles/Vol] 4.3 mmol/L 3.5-5.1 [facility] Sodium [Moles/Vol] 143 mmol/L 136-145 [facility] Triglyceride [Mass/Vol] 152 mg/dL <199 [facility] Comment on above: The drugs N-Acetylcy steine and Metamizole may falsely depress this assay.Serum Triglycerides Reference Interval Normal <150 mg/dL Borderline high 150 - 199 mg/dL High 200 - 499 mg/dL Very High > or = 500 mg/dL Laboratory - Chemistry and C hemistry - challengeOrdered By: Thierno Ambriz on 04-02-2023 CO2 [Moles/Vol] 27.0 mmol/L 21.0-32.0 [facility] Magnesium [Mass/Vol] 2.0 mg/dL 1.6-2.6 [facility] Urea nitrogen/Creatinine [Mass ratio] 29.4 mg/mg 10-20 [facility] No Panel InformationOrdered By: Thierno Ambriz on 04-02-2023 Estimated GFR (MDRD) Amer 171 mL/min >60 [facility] Comment on above: GFR Calc Estimated GFR (MDRD) Non-Af Amer 141 mL/min >60 [facility] Comment on above: Non- GFR Calc Serum or plasma calcium nolan urement (mass/volume)Ordered By: Thierno Ambriz on 04-02-2023 Calcium [Mass/Vol] 9.0 mg/dL 8.5-10.1 [facility] Serum or plasma cholesterol in HDL measurement (mass/volume)Ordered By: Thierno Ambriz on 04-02-2023 Cholesterol in HDL [Mass/Vol] 61 mg/dL >40 [facility] Comment on above: The drugs N-Acetylcy steine and Metamizole may falsely depress this assay. Reference Range HDL <40 mg/dL Low HDL Cholesterol HDL >or= 60 mg/dL High HDL Cholesterol Serum or plasma cholesterol in VLDL measurement (mass/volume)Ordered By: Thierno Ambriz on 04-02-2023 Cholesterol in VLDL [Mass/Vol] 30 mg/dL 5-40 [facility] Serum or plasma creatinine m easurement (mass/volume)Ordered By: Thierno Ambriz on 04-02-2023 Creatinine [Mass/Vol] 0.48 mg/dL 0.55-1.02 [facility] Comment on above: The validity of the calculated GFR & GFRAA in patients over 70 years has not been determined. Clinical correlation is essential. Serum or plasma low density lipoprotein (LDL) cholesterol measurement (mass/volume)Ordered By: Thierno Ambriz on 04-02-2023 Cholesterol in LDL [Mass/Vol] 56 mg/dL 0-130 [facility] Serum or plasma urea nitroge n measurement (mass/volume)Ordered By: Thierno Ambriz on 04-02-2023 Urea nitrogen [Mass/Vol] 14 mg/dL 7-18 [facility] Thin prep Papanicolaou smear with manual screeningOrdered By: Thierno Ambriz on 04-02-2023 Thin prep Papanicolaou smear with manual screening 7 - [facility] No Panel Informationon 03-20 POC SARS CoV-2 Antigen Negative [facility] - Hematology and Cell countson 12-29-2022 HbA1c (Bld) [Mass fraction] 6.5 % 4.2-6.3 [facility] Absolute lymphocyte countOrd ered By: Dr. Ambriz on 09-24-2022 Lymphocytes Auto (Unsp spec) [#/Vol] 2.86 10*3/uL 0.83-4.51 [facility] Basophil percentageOrdered B y: Dr. Ambriz on 09-24-2022 Basophils/100 WBC (Bld) 0.8 % 0-1 [facility] Bilirubin [Mass/Vol] 0.60 mg/dL 0.20-1.00 [facility] Comment on above: For patients on eltr ombopag therapy, use of Dimension Hortense TBIL is not recommended. Chloride [Moles/Vol] 105 mmol/L 98-107 [facility] Cholesterol [Mass/Vol] 142 mg/dL <200 [facility] Comment on above: <200 mg/dL Desirable 200-240 mg/dL Borderline >240 mg/dL High Risk Eosinophils/100 WBC (Bld) 2.1 % 0-5 [facility] Glucose [Mass/Vol] 182 mg/dL 74-106 [facility] Comment on above: Fasting Glucose resu lt greater than or equal to 126 mg/dL suggests DIABETES MELLITUS per A.D.A. criteria. Neutrophils (Bld) [#/Vol] 4.3 10*3/uL 2.0-7.7 [facility] Neutrophils/100 WBC (Bld) 54.4 % 47-70 [facility] Potassium [Moles/Vol] 4.2 mmol/L 3.5-5.1 [facility] Protein [Mass/Vol] 8.0 g/dL 6.4-8.2 [facility] Sodium [Moles/Vol] 139 mmol/L 136-145 [facility] Triglyceride [Mass/Vol] 250 mg/dL <199 [facility] Comment on above: The drugs N-Acetylcy steine and Metamizole may falsely depress this assay.Serum Triglycerides Reference Interval Normal <150 mg/dL Borderline high 150 - 199 mg/dL High 200 - 499 mg/dL Very High > or = 500 mg/dL WBC (Bld) [#/Vol] 8.0 10*3/uL 4.4-11.0 [facility] Blood erythrocytes count (nu mber/volume)Ordered By: Dr. Ambriz on 09-24-2022 RBC (Bld) [#/Vol] 4.34 10*6/uL 4.2-5.4 [facility] Blood hemoglobin measurement (mass/volume)Ordered By: Dr. Ambriz on 09-24-2022 Hemoglobin (Bld) [Mass/Vol] 13.5 g/dL 12.0-15.0 [facility] Blood lymphocytes/100 leukoc ytesOrdered By: Dr. Ambriz on 09-24-2022 Lymphocytes/100 WBC (Bld) 35.9 % 19-41 [facility] Blood monocytes/100 leukocyt esOrdered By: Dr. Ambriz on 09-24-2022 Monocytes/100 WBC (Bld) 6.4 % 0-10 [facility] Blood platelet mean volumeOr dered By: Dr. Ambriz on 09-24-2022 Platelet mean volume (Bld) [Entitic vol] 11.1 fL 6.2-12.0 [facility] Determination of erythrocyte mean corpuscular volume (MCV)Ordered By: Dr. Ambriz on 06-21-2023 MCV (RBC) [Entitic vol] 91.5 fL 81-99 [facility] Hematocrit Auto (Bld) [Volum e fraction]Ordered By: Dr. Ambriz on 09-24-2022 Hematocrit (Bld) [Volume fraction] 39.7 % 37-47 [facility] Laboratory - Chemistry and C hemistry - challengeOrdered By: Dr. Ambriz on 09-24-2022 ALP [Catalytic activity/Vol] 165 U/L 45-117 [facility] ALT [Catalytic activity/Vol] 30 U/L 13-56 [facility] CO2 [Moles/Vol] 26.0 mmol/L 21.0-32.0 [facility] Globulin (S) [Mass/Vol] 4.1 g/dL 2.2-4.2 [facility] Urea nitrogen/Creatinine [Mass ratio] 15.7 mg/mg 10-20 [facility] - Hematology and Cell countsOrdered By: Dr. Ambriz on 09-24-2022 Erythrocyte distribution width (RBC) [Entitic vol] 40.6 fL 35.1-43.9 [facility] Erythrocyte distribution width (RBC) [Ratio] 12.2 % 11.6-14.6 [facility] Immature granulocytes/100 WBC (Bld) 0.400 % 0.0-0.9 [facility] Comment on above: IG% - Immature Granu locytes (promyelocytes, myelocytes and metamyelocytes) > 1% indicates that a LEFT SHIFT is Present. MCH (RBC) [Entitic mass] 31.1 pg 27.0-32.0 [facility] Nucleated RBC/100 WBC (Bld) [Ratio] 0 % 0-5 [facility] MCHC Auto (RBC) [Mass/Vol]Or dered By: Dr. Ambriz on 09-24-2022 MCHC (RBC) [Mass/Vol] 34.0 g/dL 32-36 [facility] No Panel InformationOrdered By: Dr. Ambriz on 09-24-2022 Estimated GFR (MDRD) Amer 122 mL/min >60 [facility] Comment on above: GFR Calc Estimated GFR (MDRD) Non-Af Amer 101 mL/min >60 [facility] Comment on above: Non- GFR Calc Thyroid Stimulating Hormone (TSH) 1.00 uIU/mL 0.358-3.74 [facility] Urine Microalbumin/Creatinine Ratio 9.5 mg/g CRE <30 [facility] Platelets bldOrdered By: Dr. Ambriz on 09-24-2022 Platelets (Bld) [#/Vol] 253 10*3/uL 150-450 [facility] Serum or plasma albumin nolan urement (mass/volume)Ordered By: Dr. Ambriz on 09-24-2022 Albumin [Mass/Vol] 3.9 g/dL 3.2-5.0 [facility] Serum or plasma albumin/glob ulin mass ratioOrdered By: Dr. Ambriz on 09-24-2022 Albumin/Globulin [Mass ratio] 1.0 {ratio} 0.9-2.4 [facility] Serum or plasma calcium nolan urement (mass/volume)Ordered By: Dr. Ambriz on 09-24-2022 Calcium [Mass/Vol] 10.2 mg/dL 8.5-10.1 [facility] Serum or plasma cholesterol in HDL measurement (mass/volume)Ordered By: Dr. Ambriz on 09-24-2022 Cholesterol in HDL [Mass/Vol] 57 mg/dL >40 [facility] Comment on above: The drugs N-Acetylcy steine and Metamizole may falsely depress this assay. Reference Range HDL <40 mg/dL Low HDL Cholesterol HDL >or= 60 mg/dL High HDL Cholesterol Serum or plasma cholesterol in VLDL measurement (mass/volume)Ordered By: Dr. Ambriz on 09-24-2022 Cholesterol in VLDL [Mass/Vol] 50 mg/dL 5-40 [facility] Serum or plasma creatinine m easurement (mass/volume)Ordered By: Dr. Ambriz on 09-24-2022 Creatinine [Mass/Vol] 0.64 mg/dL 0.55-1.02 [facility] Comment on above: The validity of the calculated GFR & GFRAA in patients over 70 years has not been determined. Clinical correlation is essential. Serum or plasma low density lipoprotein (LDL) cholesterol measurement (mass/volume)Ordered By: Dr. Ambriz on 09-24-2022 Cholesterol in LDL [Mass/Vol] 35 mg/dL 0-130 [facility] Serum or plasma urea nitroge n measurement (mass/volume)Ordered By: Dr. Ambriz on 09-24-2022 Urea nitrogen [Mass/Vol] 10 mg/dL 7-18 [facility] Thin prep Papanicolaou smear with manual screeningOrdered By: Dr. Ambriz on 09-24-2022 Thin prep Papanicolaou smear with manual screening 20 U/L 15-37 [facility] Thin prep Papanicolaou smear with manual screening 8 5-15 [facility] Thin prep Papanicolaou smear with manual screening 9.8 mg/L NO RANGE EST. [facility] Urine creatinine measurement (mass/volume)Ordered By: Dr. Ambriz on 09-24-2022 Creatinine (U) [Mass/Vol] 103.00 mg/dL NO RANGE EST. [facility] Whole blood hemoglobin A1c/t otal hemoglobin ratio (mass fraction)Ordered By: Dr. Ambriz on 09-24-2022 HbA1c (Bld) [Mass fraction] 9.3 % 3.8-5.6 [facility] Comment on above: Normal < 5.7 % Predi abetic 5.7 - 6.4 % Diabetic >or= 6.5 % Please note range changes. Basophil percentageon 2021 Bilirubin [Mass/Vol] 0.50 mg/dL 0.20-1.00 [facility] Work Phone: Comment on above: For patients on eltr ombopag therapy, use of Dimension Hortense TBIL is not recommended. Chloride [Moles/Vol] 104 mmol/L 98-107 [facility] Work Phone: Cholesterol [Mass/Vol] 139 mg/dL <200 [facility] Work Phone: Comment on above: <200 mg/dL Desirable 200-240 mg/dL Borderline >240 mg/dL High Risk Glucose [Mass/Vol] 196 mg/dL 74-106 [facility] Work Phone: Comment on above: Fasting Glucose resu lt greater than or equal to 126 mg/dL suggests DIABETES MELLITUS per A.D.A. criteria. Potassium [Moles/Vol] 3.7 mmol/L 3.5-5.1 [facility] Work Phone: Protein [Mass/Vol] 7.9 g/dL 6.4-8.2 [facility] Work Phone: Sodium [Moles/Vol] 136 mmol/L 136-145 [facility] Work Phone: Triglyceride [Mass/Vol] 166 mg/dL <199 [facility] Work Phone: Comment on above: The drugs N-Acetylcy steine and Metamizole may falsely depress this assay.Serum Triglycerides Reference Interval Normal <150 mg/dL Borderline high 150 - 199 mg/dL High 200 - 499 mg/dL Very High > or = 500 mg/dL Direct bilirubinon 2 Bilirubin.direct [Mass/Vol] 0.15 mg/dL 0.00-0.30 [facility] Work Phone: Laboratory - Chemistry and C hemistry - challengeon 11-27-2021 ALP [Catalytic activity/Vol] 149 U/L 45-117 [facility] Work Phone: ALT [Catalytic activity/Vol] 30 U/L 13-56 [facility] Work Phone: CO2 [Moles/Vol] 25.0 mmol/L 21.0-32.0 [facility] Work Phone: Globulin (S) [Mass/Vol] 4.1 g/dL 2.2-4.2 [facility] Work Phone: Magnesium [Mass/Vol] 1.5 mg/dL 1.6-2.6 [facility] Work Phone: T4 [Mass/Vol] 11.3 ug/dL 4.8-13.9 [facility] Work Phone: Urea nitrogen/Creatinine [Mass ratio] 14.0 mg/mg 10-20 [facility] Work Phone: No Panel Informationon 11-27 Estimated GFR (MDRD) Amer 121 mL/min >60 [facility] Work Phone: Comment on above: GFR Calc Estimated GFR (MDRD) Non-Af Amer 100 mL/min >60 [facility] Work Phone: Comment on above: Non- GFR Calc Thyroid Stimulating Hormone (TSH) 1.52 uIU/mL 0.358-3.74 [facility] Work Phone: Urine Microalbumin/Creatinine Ratio 19.3 mg/g CRE <30 [facility] Work Phone: Serum or plasma albumin nolan urement (mass/volume)on 11-27-2021 Albumin [Mass/Vol] 3.8 g/dL 3.2-5.0 [facility] Work Phone: Serum or plasma calcium nolan urement (mass/volume)on 11-27-2021 Calcium [Mass/Vol] 9.3 mg/dL 8.5-10.1 [facility] Work Phone: Serum or plasma cholesterol in HDL measurement (mass/volume)on 11-27-2021 Cholesterol in HDL [Mass/Vol] 60 mg/dL >40 [facility] Work Phone: Comment on above: The drugs N-Acetylcy steine and Metamizole may falsely depress this assay. Reference Range HDL <40 mg/dL Low HDL Cholesterol HDL >or= 60 mg/dL High HDL Cholesterol Serum or plasma cholesterol in VLDL measurement (mass/volume)on 11-27-2021 Cholesterol in VLDL [Mass/Vol] 33 mg/dL 5-40 [facility] Work Phone: Serum or plasma creatinine m easurement (mass/volume)on 11-27-2021 Creatinine [Mass/Vol] 0.64 mg/dL 0.55-1.02 [facility] Work Phone: Comment on above: The validity of the calculated GFR & GFRAA in patients over 70 years has not been determined. Clinical correlation is essential. Serum or plasma low density lipoprotein (LDL) cholesterol measurement (mass/volume)on 11-27-2021 Cholesterol in LDL [Mass/Vol] 46 mg/dL 0-130 [facility] Work Phone: Serum or plasma urea nitroge n measurement (mass/volume)on 11-27-2021 Urea nitrogen [Mass/Vol] 9 mg/dL 7-18 [facility] Work Phone: Thin prep Papanicolaou smear with manual screeningon 11-27-2021 Thin prep Papanicolaou smear with manual screening 28 U/L 15-37 [facility] Work Phone: Thin prep Papanicolaou smear with manual screening 7 5-15 [facility] Work Phone: Thin prep Papanicolaou smear with manual screening 8.4 mg/L NO RANGE EST. [facility] Work Phone: Urine creatinine measurement (mass/volume)on 11-27-2021 Creatinine (U) [Mass/Vol] 43.50 mg/dL NO RANGE EST. [facility] Work Phone: Vital Signs Date Time Vital Sign Value Performing Clinician Aliya hancock 04-08-2023 13:35-0500 Body height 157.[address] Thierno Ambriz Work Phone: [facility] 04-08-2023 13:35-0500 Body mass index (BMI) [Ratio] 39.6 kg/m2 Dr. Thierno Ambriz Work Phone: [facility] 04-08-2023 13:35-0500 Body temperature 97.1 [degF] Dr. Thierno Ambriz Work Phone: [facility] 04-08-2023 13:35-0500 Body weight 98.[address] Thierno Ambriz Work Phone: [facility] 04-08-2023 13:35-0500 Diastolic blood pressure 60 mm[Hg] Dr. Thierno Ambriz Work Phone: [facility] 04-08-2023 13:35-0500 Heart rate 80 /min Dr. Thierno Ambriz Work Phone: [facility] 04-08-2023 13:35-0500 Respiratory rate 16 /min Dr. Thierno Ambriz Work Phone: [facility] 04-08-2023 13:35-0500 SaO2% (BldA) [Mass fraction] 98 % Dr. Thierno Ambriz Work Phone: [facility] 04-08-2023 13:35-0500 Systolic blood pressure 118 mm[Hg] Dr. Thierno Ambriz Work Phone: [facility] 03-20-2023 07:25-0500 Body mass index (BMI) [Ratio] 41 kg/m2 Dr. Thierno Ambriz Work Phone: [facility] 03-20-2023 07:25-0500 Body temperature 98.5 [degF] Dr. Thierno Ambriz Work Phone: [facility] 03-20-2023 07:25-0500 Body weight 101.[address] Thierno Ambriz Work Phone: [facility] 03-20-2023 07:25-0500 Diastolic blood pressure 72 mm[Hg] Dr. Thierno Ambriz Work Phone: [facility] 03-20-2023 07:25-0500 Heart rate 75 /min Dr. Thierno Ambriz Work Phone: [facility] 03-20-2023 07:25-0500 Respiratory rate 17 /min Dr. Thierno Ambriz Work Phone: [facility] 03-20-2023 07:25-0500 SaO2% (BldA) [Mass fraction] 98 % Dr. Thierno Ambriz Work Phone: [facility] 03-20-2023 07:25-0500 Systolic blood pressure 136 mm[Hg] Dr. Thierno Ambriz Work Phone: [facility] 12-29-2022 08:18-0400 Body mass index (BMI) [Ratio] 40.2 kg/m2 Dr. Thierno Ambriz Work Phone: [facility] 12-29-2022 08:18-0400 Body temperature 96.2 [degF] Dr. Thierno Ambriz Work Phone: [facility] 12-29-2022 08:18-0400 Body weight 99.[address] Thierno Ambriz Work Phone: [facility] 12-29-2022 08:18-0400 Diastolic blood pressure 82 mm[Hg] Dr. Thierno Ambriz Work Phone: [facility] 12-29-2022 08:18-0400 Heart rate 73 /min Dr. Thierno Ambriz Work Phone: [facility] 12-29-2022 08:18-0400 Respiratory rate 18 /min Dr. Thierno Ambriz Work Phone: [facility] 12-29-2022 08:18-0400 SaO2% (BldA) [Mass fraction] 98 % Dr. Thierno Ambriz Work Phone: [facility] 12-29-2022 08:18-0400 Systolic blood pressure 136 mm[Hg] Dr. Thierno Ambriz Work Phone: [facility] 09-24-2022 14:45-0400 Body height 157.[address] Haydee Szymanski Work Phone: [facility] 09-24-2022 14:45-0400 Body mass index (BMI) [Ratio] 42.7 kg/m2 Dr. Haydee Szymanski Work Phone: [facility] 09-24-2022 14:45-0400 Body temperature 98.2 [degF] Dr. Haydee Szymanski Work Phone: [facility] 09-24-2022 14:45-0400 Body weight 106.[address] Haydee Szymanski Work Phone: [facility] 09-24-2022 14:45-0400 Diastolic blood pressure 78 mm[Hg] Dr. Haydee Szymanski Work Phone: [facility] 09-24-2022 14:45-0400 Heart rate 78 /min Dr. Haydee Szymanski Work Phone: [facility] 09-24-2022 14:45-0400 Respiratory rate 18 /min Dr. Haydee Szymanski Work Phone: [facility] 09-24-2022 14:45-0400 SaO2% (BldA) [Mass fraction] 98 % Dr. Haydee Szymanski Work Phone: [facility] 09-24-2022 14:45-0400 Systolic blood pressure 122 mm[Hg] Dr. Haydee Szymanski Work Phone: [facility] Encounters Encounter Date Encounter Type Care Provider Facility Start: 01-27-2025 ambulatory [facility] Facility:[facility] Start: 04-19-2024 End: 04-19-2024 ambulatory [facility] Facility:[facility] Start: 02-25-2024 End: 02-25-2024 ambulatory Thierno Ambriz Facility:[facility] Start: 04-08-2023 End: 04-08-[address] Thierno Ambriz Work Phone: [facility] Work Phone: Start: 04-02-2023 End: 04-02-[address] Thierno Ambriz Work Phone: [facility] Work Phone: Start: 04-02-2023 End: 04-02-[address] Thierno Ambriz Work Phone: [facility], [place] Start: 03-20-2023 End: 03-20-[address] Thierno Ambriz Work Phone: [facility] Work Phone: Start: 12-29-2022 End: 12-29-[address] Thierno Ambriz Work Phone: [facility] Work Phone: Start: 11-24-2022 End: 11-24-[address] Haydee Szymanski Work Phone: [facility] Work Phone: Start: 11-24-2022 End: 11-24-[address] Haydee Szymanski Work Phone: [facility] Work Phone: Start: 09-24-2022 End: 09-24-[address] Haydee Szymanski Work Phone: [facility] Work Phone: Start: 09-24-2022 End: 09-24-[address] Haydee Szymanski Work Phone: [facility] Start: 11-27-2021 End: 11-27-2021 ambulatory [facility] Work Phone: Start: 11-27-2021 End: 11-27-2021 Patient encounter procedure [facility] Start: 11-18-2021 End: 11-18-2021 Patient encounter procedure [facility] Procedures Date Procedure Procedure Detail Performing Clinician Start: 11-24-2022 Screening mammography Eugenie Szymanski Work Phone: Start: 11-18-2021 Screening mammography Plan of Treatment Date Care Activity Detail Author Start: 09-24-2022 Patient referral [facility] Work Phone: Patient referral [facility] Work Phone: Payers Date Payer Category Payer Self-pay [id number] 2020 Unknown [id number] 2016 Private Health Insurance [facility] [id number] Unknown [employer] [id number] Unknown [id number] Unknown [id number] Unknown [id number] Social History Date Type Detail Facility Start: 07-02-2021 End: 04-08-2023 Tobacco smoking status PAIS Unknown if ever smoked [facility] Start: 02-04-2015 None [facility] Start: 02-04-2015 Non-smoker [facility] Start: 1960 Sex Assigned At Female [facility] Evaluation note Note Date & Type Note Facility Evaluation note No assessment information availa [facility] Work Phone: Evaluation note Note Date & Type Note Facility Evaluation note Diagnosis Onset Date HLD (hyperlipidemia) chronic HTN (hypertension) chronic Hypothyroidism chronic Type 2 diabetes mellitus [facility] Work Phone: Evaluation note Note Date & Type Note Facility Evaluation note Diagnosis Onset Date Dermatitis acute HTN (hypertension) chronic Type 2 diabetes mellitus [facility] Asthmatic bronchitis with acute exacerbation acute HLD (hyperlipidemia) chronic HTN (hypertension) chronic Hypothyroidism chronic Type 2 diabetes mellitus [facility] Work Phone: Chief Complaint and Reason for Visit Chief Complaint SCREENING Chief Complaint SURGICAL ASSIST. [facility] - [facility] P ATIENT Reason for Visit HLD (hyperlipidemia) HTN (hypertension) Hypothyroidism Type 2 diabetes mellitus Chief Complaint SURGICAL [facility]. [facility] P ATIENT SCREENING Reason for Visit HLD (hyperlipidemia) HTN (hypertension) Hypothyroidism Type 2 diabetes mellitus Chief Complaint 3 M FU CONGESTION 3 M FU Reason for Visit Dermatitis HTN (hypertension) Type 2 diabetes mellitus Asthmatic bronchitis with acute exacerbation HLD (hyperlipidemia) HTN (hypertension) Hypothyroidism Type 2 diabetes mellitus Family History No Family History Records Found Relationship Condition Age at Onset Recorded Date/T yuliya mother Hypertension Unknown father Disorder of lung Unknown Advance Directives No Advanced Directives Records Found Advance Directive Response Recorded Date/ Time Advance Directives No January 21, 2015 3:44am Living Will Yes January 01, 2021 1:29pm Power of Project Management Professor Yes December 1:29pm Advance Directive Response Recorded Date/ Time Advance Directives No January 21, 2015 2:44am Living Will Yes January 01, 2021 12:29pm Power of Project Management Professor Yes December 12:29pm Summary Purpose Additional Source Comments Goals (unrecognized section and content) Goals may be documented in a n alternate sectionGoals may be documented in an alternate sectionGoals may be documented in an alternate sectionGoals may be documented in an alternate sectionGoals may be documented in an alternate section Care Teams (unrecognized sec tion and content) Team Status: Active Member Role Status Dates Dr. Williams Reynoso MD Family Provider Active Dr. Thierno Ambriz MD Primary Care Provider Active Team Status: Inactive Member Role Status Dates Dr. Haydee Szymanski MD Primary Care Provider, Referrin g Provider Active Dr. Thierno Ambriz MD Attending Provider Active Team Status: Inactive Member Role Status Dates Dr. Thierno Ambriz MD Primary Care P lee, Attending Provider, Referring Provider Active Team Status: Inactive Member Role Status Dates Queta Ann SURGICAL ASSIST, SURGICAL ASSIST-C Attending Provider, Referring Provider Active Dr. Thierno Ambriz MD Primary Care Provider Active Team Status: Inactive Member Role Status Dates Dr. Thierno Ambriz MD Primary Care Provider, Refer ring Provider Active Francisco Javier MCARTHUR, PA Attending Provider Active INFORMATION SOURCE (unrecogn ized section and content) DATE CREATED AUTHOR 01/19/2025 [facility] FOR RECORDS PERTAINING TO PATIENTS WHO ARE OR HAVE BEEN ENROLLED IN A CHEMICAL DEPENDENCY/SUBSTANCEABUSE PROGRAM, SOME INFORMATION MAY BE OMITTED. This clinical summary was aggregated from multiple sources. Caution should be exercised in using it in the provision of clinical care. This summary normalizes information from multiple sources, and as a consequence, information in this document may materially change the coding, format and clinical context of patient data. In addition, data may be omitted in some cases. CLINICAL DECISIONS SHOULD BE BASED ON THE PRIMARY CLINICAL RECORDS. [employer] [facility]. provides no warranty or guarantee of the accuracy or completeness of information in this document.
== END | disposition home or self-care (01) ==
LOC: CVS 13:47
PROVIDERS: PCP Family Medicine; Referring Provider Family Medicine; Visit Provider Family Medicine
DX: I83.90 Asymptomatic varicose veins of unspecified lower extremity (principal); R25.2 Cramp and spasm
CPT/HCPCS: 93922

== ENCOUNTER → 2025-02-16 | Outpatient (CLI) | payer OTHER, SELFPAY ==
--- NOTE | 2025-02-16 12:27 | VDLE_ITS ---
Reason For Study Reason For Study: LLE Edema RIGHT LEFT GSV is normal. CFV is compressible, phasic, and INCOMPETENT for CFV is compressible, spontaneous, phasic, competent greater than 1.0 second. and demonstrates normal augmentation. FV is compressible, spontaneous, phasic, competent FV is compressible, spontaneous, phasic, competent and demonstrates normal augmentation. and demonstrates normal augmentation. POP V is compressible, spontaneous, phasic, competent POP V is compressible, spontaneous, phasic, competent and demonstrates normal augmentation. and demonstrates normal augmentation. T/P Trunk is compressible. T/P Trunk is compressible. PTV is compressible. PTV is compressible. LT PerV is compressible. RT PerV is compressible. SFJ is INCOMPETENT and measures 0.71 cm. Procedure GSV proximal thigh measures 0.64 x 0.61 cm. This is a venous duplex using B-mode, color flow and GSV at knee measures 0.40 x 0.40 cm. spectral Doppler. GSV above knee is INCOMPETENT for greater than 0.5 Exam performed in department. seconds. The exam was diagnostic. GSV below knee is competent. Patient was scanned in reverse Trendelenburg position SSV mid calf is competent and measures 0.33 x 0.35 during reflux assessment. cm. ASV mid thigh is INCOMPETENT for greater than 0.5 seconds and measures 0.66 x 0.68 cm. VL/Venous Duplex US - Avery Extrem Interpretation Summary Deep veins of the bilateral lower extremities are patent and compressible segme ntally. There is no evidence of bilateral lower extremity deep vein thrombosis. The bilateral great saphenous veins appea r patent and compressible segmentally. Positive for reflux in the left common femoral vein, saphenofemoral junction, g reat saphenous vein above the knee, accessory saphenous vein in the thigh. Ordering Physician: Katie Escobar Referring Physician: Katie Escobar Performed By: [place], Gumaro, RVT
--- OUTSIDE RECORDS SUMMARY | 2025-02-16 17:25 | XMS RPT_ITS | CCD ---
Author Organization [facility] Care Team Providers Care Energy Operations Vice President Name Role Phone Dr. Haydee Szymanski Primary Care Provider Dr. Haydee Szymanski Referring Provider Dr. Thierno Ambriz Attending Provider [phone] Dr. Thierno Ambriz Primary Care Provider Dr. Thierno Ambriz Attending Provider [phone] Dr. Thierno Ambriz Referring Provider [phone] LYUBOV Yoon Attending Provider Thierno Ambriz Primary Care Unavailable Thierno Ambriz Attending Unavailable Thierno Ambriz Referring Unavailable Luz, Chalgenet Referring Unavailable Luz, Chalon Primary Care Unavailable Daniel Liz Attending Unavailable Luz, Chalgenet Referring Unavailable Luz, Chalon Primary Care Unavailable Luz, Chalon Attending Unavailable Luz, Chalon Attending Unavailable Luz, Chalon Referring Unavailable Luz, Chalon Primary Care Unavailable Allergies Allergy Classification Reported Allergen(s) Allergy Type Date of Onset Reaction(s) Facility (6 sources) atorvastatin; Translations: [atorvastatin calcium] Drug Allergy 2 Other [facility] (5 sources) Codeine Drug Allergy 2 Vomiting [facility] (5 sources) Erythromycin Drug Allergy 2 Vomiting [facility] (6 sources) HYDROcodone; Translations: [hydrocodone bitartrate] Drug Allergy 2 Nausea/Vom/Diar chon [facility] (5 sources) levoFLOXacin Drug Allergy 2 Nausea/Vom/Diar chon [facility] (5 sources) metOLazone Drug Allergy 2 Other [facility] (6 sources) Sulfonamides (Antibiotic); Translations: [Sulfa (Sulfonamide Antibiotics)] Propensity to adverse reactions 2 Vomiting [facility] (5 sources) traMADol Drug Allergy 2 Vomiting [facility] (1 source) Codeine Drug Allergy 4 [facility] Repository (1 source) Erythromycin Drug Allergy 4 [facility] Repository (1 source) levoFLOXacin Drug Allergy 4 [facility] Repository (1 source) metOLazone Drug Allergy 4 [facility] Repository (1 source) traMADol Drug Allergy 4 [facility] Repository Medications Current Medications Medication Drug Class(es) Dates Sig (Normalized) Sig (Original) atorvastatin 20 mg oral tablet (5 sources) HMG-CoA Reductase Inhibitor Start: 07-02-2021 take 20 mg by mouth once daily Atorvastatin Active 20 MG PO DAILY July 01, 2021 11:00pm Uylckdp-Ssaeaoejh-I inc (5 sources) Start: 07-02-2021 Uuycwbp-Jvsmykmrv-N inc Active TABLET PO July 01, 2021 11:00pm Start: 07-02-2021 Calcium-Magnes ium-Zinc Active TABLET PO July 02, 2021 12:00am 0.5 ml dulaglutide 3 mg/ml auto-injector (6 sources) GLP-1 Receptor Agonist Start: 02-16-2023 Dulaglutide (Olivieri ty) 1.5 mg/0.5 mL pen injector Active [...] 09, 2017 4:44am July 15, 2018 9:55am [id number] 200 actuat albuterol 0.09 mg/actuat metered dose [...] the patient is on Eliquis. estrogens, conjugated (mcfp) 0.625 mg/ml vaginal cream (5 sources) Estrogen [...] Discontinued 4 MG PO per package directions 24 09March 20, 2023 12:00am March 26, 2023 12:05am pioglitazone 15 mg oral tablet (1 source) Peroxisome Proliferator Receptor alpha Agonist, Peroxisome Proliferator Receptor gamma Agonist, Thiazolidinedione Start: 12-02-2022 End: 12-02-2022 take 15 mg by mouth once daily Pioglitazone Discontinued 15 MG PO DAILY December 01, 2022 11:00pm December 02, 2022 [...] varicose veins of unspecified lower extremity] Onset: 01-27-2025 Episodic Past or Other Problems Problem Classification Problem Date Documented Da te Episodic/Chronic Unclassified (5 sources) bowel blockage 10-24-2021 Unclassified (5 sources) hernia repair with mesh 10-24-2021 Unclassified (5 sources) mesh removal 10-24-2021 Unclassified (5 sources) partial bowel removal 10-24-2021 Results Test Name Value Interpretation Reference Range Facility Ankle Brachial Indexon 01-27 Ankle Brachial Index [facility] [address] [place] [address] Ankle Brachial Index 01/27/25 1401 MR#: [id number] Acct: [id number] Name: MADDY BENEDICT Rep #: [id number] : 1960 64 From: Daniel Liz MD Attending Dr: Dr. Katie Cole MD Status: REG C MARVA Ordering Dr: Katie Cole MD Date: 01/27/25 Location: CVS Sex: F C Admitted: Reason For Study Reason For Study: Left leg cramps and enlargement Procedure A bilateral lower extremity continuous wave Doppler with analog waveform analysis and ankle brachial indexes. Left Segmental Pressures Left brachial= 130mmHg. Left posterior tibial artery = 172mmHg. Left dorsalis pedis artery = 163mmHg. Left digit = 122 mmHg. Right Segmental Pressures Right brachial= 134mmHg. Right posterior tibial artery = 181mmHg. Right dorsalis pedis artery = 172mmHg. Right digit = 119 mmHg. Indices The right ankle brachial index by the posterior tibial artery is 1.35. The right ankle brachial index by the dorsalis pedis is 1.28. The right digital-brachial index is 0.89. The left ankle brachial index by the posterior tibial artery is 1.28. The left ankle brachial index by the dorsalis pedis is 1.22. The left digital-brachial index is 0.91. VL/Ankle Brachial Index Interpretation Summary Right YEVGENIY 1.35, normal. TBI and Doppler/PVR waveforms of the right ankle normal at rest. Left YEVGENIY 1.28, normal. TBI and Doppler/PVR waveforms of the left ankle normal at rest. __ Ordering Physician: Katie Cole Referring Physician: KATIE COLE MD Performed By: Marely Smith RDCS/RVT 01/30/25 0847 Date Daniel Liz MD CC: Dr. Katie Cole MD Date Dictated: 01/27/25 140 Date Transcribed: 01/30/25846 Enlisted Aircrew/Aerial Observer/Gunner: Signed Normal [facility] CBC W/Diff, Automatedon 04-06 Absolute Lymph 1.95 X10 3/uL Normal 0.83-4.51 [facility] Comment on above: Order Comment: Order Date: 04/18/24 Order Info: 0184-1 - CBCD Performed By: #### L 500.4050, L100.0100, L500.4100, L506.1000, L501.9520 #### [facility] [address] [place], [address] Absolute Neut 3.2 X10 3/uL Normal 2.0-7.7 [facility] Comment on above: Order Comment: Order Date: 04/18/24 Order Info: [id number] - CBCD Performed By: #### L 500.4050, L100.0100, L500.4100, L506.1000, L501.9520 #### [facility] [address] [place], [place], [address] Basophils/100 WBC (Bld) 0.7 % Normal 0-1 [facility] Comment on above: Order Comment: Order Date: 04/18/24 Order Info: 0184-1 - CBCD Performed By: #### L 500.4050, L100.0100, L500.4100, L506.1000, L501.9520 #### [facility] [address] [place], [address] Eosinophils/100 WBC (Bld) 2.1 % Normal 0-5 [facility] Comment on above: Order Comment: Order Date: 04/18/24 Order Info: 0184-1 - CBCD Performed By: #### L 500.4050, L100.0100, L500.4100, L506.1000, L501.9520 #### [facility] [address] [place], [address] Erythrocyte distribution width (RBC) [Ratio] 13.1 % Normal 11.6-14.6 [facility] Comment on above: Order Comment: Order Date: 04/18/24 Order Info: 0184-1 - CBCD Performed By: #### L 500.4050, L100.0100, L500.4100, L506.1000, L501.9520 #### [facility] [address] [place], [address] Hematocrit (Bld) [Volume fraction] 36.4 % Low 37-47 [facility] Comment on above: Order Comment: Order Date: 04/18/24 Order Info: 0184-1 - CBCD Performed By: #### L 500.4050, L100.0100, L500.4100, L506.1000, L501.9520 #### [facility] [address] [place], [address] Hemoglobin (Bld) [Mass/Vol] 12.4 g/dL Normal 12.0-15.0 [facility] Comment on above: Order Comment: Order Date: 04/18/24 Order Info: 0184-1 - CBCD Performed By: #### L 500.4050, L100.0100, L500.4100, L506.1000, L501.9520 #### [facility] [address] [place], [address] IG% 0.200 Normal 0.0-0.9 [facility] Comment on above: Order Comment: Order Date: 04/18/24 Order Info: 0184-1 - CBCD Result Comment: IG% - Immature Granulocytes (promyelocytes, myelocytes and metamyelocytes) > 1% indicates that a LEFT SHIFT is Present. Performed By: #### L 500.4050, L100.0100, L500.4100, L506.1000, L501.9520 #### [facility] [address] [place], [address] Lymphocytes/100 WBC (Bld) 34.4 % Normal 19-41 [facility] Comment on above: Order Comment: Order Date: 04/18/24 Order Info: 0184-1 - CBCD Performed By: #### L 500.4050, L100.0100, L500.4100, L506.1000, L501.9520 #### [facility] [address] [place], [address] MCH (RBC) [Entitic mass] 31.6 pg Normal 27.0-32.0 [facility] Comment on above: Order Comment: Order Date: 04/18/24 Order Info: 0184-1 - CBCD Performed By: #### L 500.4050, L100.0100, L500.4100, L506.1000, L501.9520 #### [facility] [address] [place], [address] MCHC (RBC) [Mass/Vol] 34.1 g/dL Normal 32-36 [facility] Comment on above: Order Comment: Order Date: 04/18/24 Order Info: 0184-1 - CBCD Performed By: #### L 500.4050, L100.0100, L500.4100, L506.1000, L501.9520 #### [facility] [address] [place], [address] MCV (RBC) [Entitic vol] 92.9 fL Normal 81-99 [facility] Comment on above: Order Comment: Order Date: 04/18/24 Order Info: 0184-1 - CBCD Performed By: #### L 500.4050, L100.0100, L500.4100, L506.1000, L501.9520 #### [facility] [address] [place], [address] Monocytes/100 WBC (Bld) 6.7 % Normal 0-10 [facility] Comment on above: Order Comment: Order Date: 04/18/24 Order Info: 0184-1 - CBCD Performed By: #### L 500.4050, L100.0100, L500.4100, L506.1000, L501.9520 #### [facility] [address] [place], [address] Neutrophils/100 WBC (Bld) 55.9 % Normal 47-70 [facility] Comment on above: Order Comment: Order Date: 04/18/24 Order Info: 0184-1 - CBCD Performed By: #### L 500.4050, L100.0100, L500.4100, L506.1000, L501.9520 #### [facility] [address], [address] Nucleated RBC (Bld) [#/Vol] 0 10*3/uL Normal 0-5 [facility] Comment on above: Order Comment: Order Date: 04/18/24 Order Info: 0184-1 - CBCD Performed By: #### L 500.4050, L100.0100, L500.4100, L506.1000, L501.9520 #### [facility] [address], [address] Platelet mean volume (Bld) [Entitic vol] 10.7 fL Normal 6.2-12.0 [facility] Comment on above: Order Comment: Order Date: 04/18/24 Order Info: 0184-1 - CBCD Performed By: #### L 500.4050, L100.0100, L500.4100, L506.1000, L501.9520 #### [facility] [address] [place], [address] Platelets (Bld) [#/Vol] 224 10*3/uL Normal 150-450 [facility] Comment on above: Order Comment: Order Date: 04/18/24 Order Info: 0184-1 - CBCD Performed By: #### L 500.4050, L100.0100, L500.4100, L506.1000, L501.9520 #### [facility] [address] [place], [address] RBC (Bld) [#/Vol] 3.92 10*6/uL Low 4.2-5.4 [facility] Comment on above: Order Comment: Order Date: 04/18/24 Order Info: 0184-1 - CBCD Performed By: #### L 500.4050, L100.0100, L500.4100, L506.1000, L501.9520 #### [facility] [address] [place], [address] RDW SD 43.9 fl Normal 35.1-43.9 [facility] Comment on above: Order Comment: Order Date: 04/18/24 Order Info: 0184-1 - CBCD Performed By: #### L 500.4050, L100.0100, L500.4100, L506.1000, L501.9520 #### [facility] [address] [place], [address] WBC (Bld) [#/Vol] 5.7 10*3/uL Normal 4.4-11.0 [facility] Comment on above: Order Comment: Order Date: 04/18/24 Order Info: 0184-1 - CBCD Performed By: #### L 500.4050, L100.0100, L500.4100, L506.1000, L501.9520 #### [facility] [address] [place], [address] Comprehensive Metabolic Prof ilon 04-19-2024 Albumin [Mass/Vol] 3.3 g/dL Normal 3.2-5.0 [facility] Comment on above: Order Comment: Order Date: 04/18/24 Order Info: [id number] - CMP Order Info: [id number] - LIPID Order Info: [id number] - MG Order Info: 3016-3 - TSH Performed By: #### L 500.4050, L100.0100, L500.4100, L506.1000, L501.9520 #### [facility] [address] [place], [address] Albumin/Globulin [Mass ratio] 0.8 {ratio} Low 0.9-2.4 [facility] Comment on above: Order Comment: Order Date: 04/18/24 Order Info: [id number] - CMP Order Info: [id number] - LIPID Order Info: [id number] - MG Order Info: 3016-3 - TSH Performed By: #### L 500.4050, L100.0100, L500.4100, L506.1000, L501.9520 #### [facility] [address] [place], [address] ALK P 98 U/L Normal 45-117 [facility] Comment on above: Order Comment: Order Date: 04/18/24 Order Info: 0786-1 - CMP Order Info: [id number] - LIPID Order Info: [id number] - MG Order Info: 3016-3 - TSH Performed By: #### L 500.4050, L100.0100, L500.4100, L506.1000, L501.9520 #### [facility] [address] [place], [address] ALT [Catalytic activity/Vol] 14 U/L Normal 13-56 [facility] Comment on above: Order Comment: Order Date: 04/18/24 Order Info: 0786-1 - CMP Order Info: [id number] - LIPID Order Info: [id number] - MG Order Info: 3016-3 - TSH Performed By: #### L 500.4050, L100.0100, L500.4100, L506.1000, L501.9520 #### [facility] [address] [place], [address] AST [Catalytic activity/Vol] 16 U/L Normal 15-37 [facility] Comment on above: Order Comment: Order Date: 04/18/24 Order Info: 0786-1 - CMP Order Info: [id number] - LIPID Order Info: [id number] - MG Order Info: 3016-3 - TSH Performed By: #### L 500.4050, L100.0100, L500.4100, L506.1000, L501.9520 #### [facility] [address] [place], [address] Bilirubin [Mass/Vol] 0.40 mg/dL Normal 0.20-1.00 [facility] Comment on above: Order Comment: Order Date: 04/18/24 Order Info: [id number] - CMP Order Info: [id number] - LIPID Order Info: [id number] - MG Order Info: 3016-3 - TSH Result Comment: For patients on eltrombopag therapy, use of Dimension Udell TBIL is not recommended. Performed By: #### L 500.4050, L100.0100, L500.4100, L506.1000, L501.9520 #### [facility] [address] [place], [address] BUN/CRE 19.5 RATIO Normal 10-20 [facility] Comment on above: Order Comment: Order Date: 04/18/24 Order Info: 0786-1 - CMP Order Info: [id number] - LIPID Order Info: [id number] - MG Order Info: 3015-3 - TSH Performed By: #### L 500.4050, L100.0100, L500.4100, L506.1000, L501.9520 #### [facility] [address] [place], [address] CA,Total 9.3 mg/dL Normal 8.5-10.1 [facility] Comment on above: Order Comment: Order Date: 04/18/24 Order Info: 86-1 - CMP Order Info: - LIPID Order Info: [id number] - MG Order Info: 3 - TSH Performed By: #### L 500.4050, L100.0100, L500.4100, L506.1000, L501.9520 #### [facility] [address] [place], [address] Chloride [Moles/Vol] 108 mmol/L High 98-107 [facility] Comment on above: Order Comment: Order Date: 04/18/24 Order Info: 785- - CMP Order Info: - LIPID Order Info: [id number] - MG Order Info: 3 - TSH Performed By: #### L 500.4050, L100.0100, L500.4100, L506.1000, L501.9520 #### [facility] [address] [place], [address] CO2 [Moles/Vol] 26.0 mmol/L Normal 21.0-32.0 [facility] Comment on above: Order Comment: Order Date: 04/18/24 Order Info: 07- - CMP Order Info: [id number] - LIPID Order Info: [id number] - MG Order Info: 3015-3 - TSH Performed By: #### L 500.4050, L100.0100, L500.4100, L506.1000, L501.9520 #### [facility] [address] [place], [address] Creatinine [Mass/Vol] 0.72 mg/dL Normal 0.55-1.02 [facility] Comment on above: Order Comment: Order Date: 04/18/24 Order Info: [id number] - CMP Order Info: [id number] - LIPID Order Info: [id number] - MG Order Info: 3016-3 - TSH Result Comment: The validity of the calculated GFR GFRAA in patients over 70 years has not been determined. Clinical correlation is essential. Performed By: #### L 500.4050, L100.0100, L500.4100, L506.1000, L501.9520 #### [facility] [address] [place], [address] EST GFR - AA 106 mL/min Normal >60 [facility] Comment on above: Order Comment: Order Date: 04/18/24 Order Info: 0786-1 - CMP Order Info: [id number] - LIPID Order Info: [id number] - MG Order Info: 3016-3 - TSH Result Comment: Afri can Croatian GFR Calc Performed By: #### L 500.4050, L100.0100, L500.4100, L506.1000, L501.9520 #### [facility] [address], [address] GAP 6 Normal 5-15 [facility] Comment on above: Order Comment: Order Date: 04/18/24 Order Info: 0786-1 - CMP Order Info: [id number] - LIPID Order Info: [id number] - MG Order Info: 3016-3 - TSH Performed By: #### L 500.4050, L100.0100, L500.4100, L506.1000, L501.9520 #### [facility] [address] [place], [place], [address] GFR/1.73 sq M.predicted among non-blacks MDRD (S/P/Bld) [Vol rate/Area] 87 mL/min/{1.73_m2} Normal >60 [facility] Comment on above: Order Comment: Order Date: 04/18/24 Order Info: 785-1 - CMP Order Info: [id number] - LIPID Order Info: [id number] - MG Order Info: 301-3 - TSH Result Comment: Non- GFR Calc Performed By: #### L 500.4050, L100.0100, L500.4100, L506.1000, L501.9520 #### [facility] [address] [place], [address] Globulin (S) [Mass/Vol] 3.9 g/dL Normal 2.2-4.2 [facility] Comment on above: Order Comment: Order Date: 04/18/24 Order Info: 785-1 - CMP Order Info: [id number] - LIPID Order Info: [id number] - MG Order Info: 3015-3 - TSH Performed By: #### L 500.4050, L100.0100, L500.4100, L506.1000, L501.9520 #### [facility] [address] [place], [address] Glucose [Mass/Vol] 119 mg/dL High 74-106 [facility] Comment on above: Order Comment: Order Date: 04/18/24 Order Info: 785- - CMP Order Info: [id number] - LIPID Order Info: [id number] - MG Order Info: 3015-3 - TSH Result Comment: Fast ing Glucose result from 100 to 125 mg/dL suggests IMPAIRED HOMEOSTASIS per A.D.A. criteria. Performed By: #### L 500.4050, L100.0100, L500.4100, L506.1000, L501.9520 #### [facility] [address] [place], [address] Potassium [Moles/Vol] 3.9 mmol/L Normal 3.5-5.1 [facility] Comment on above: Order Comment: Order Date: 04/18/24 Order Info: 07-1 - CMP Order Info: [id number] - LIPID Order Info: [id number] - MG Order Info: 3016-3 - TSH Performed By: #### L 500.4050, L100.0100, L500.4100, L506.1000, L501.9520 #### [facility] [address], [address] Sodium [Moles/Vol] 140 mmol/L Normal 136-145 [facility] Comment on above: Order Comment: Order Date: 04/18/24 Order Info: 0786-1 - CMP Order Info: [id number] - LIPID Order Info: [id number] - MG Order Info: 3016-3 - TSH Performed By: #### L 500.4050, L100.0100, L500.4100, L506.1000, L501.9520 #### [facility] [address], [address] T PROT 7.2 g/dL Normal 6.4-8.2 [facility] Comment on above: Order Comment: Order Date: 04/18/24 Order Info: 0786-1 - CMP Order Info: [id number] - LIPID Order Info: [id number] - MG Order Info: 3016-3 - TSH Performed By: #### L 500.4050, L100.0100, L500.4100, L506.1000, L501.9520 #### [facility] [address] [place], [address] Urea nitrogen [Mass/Vol] 14 mg/dL Normal 7-18 [facility] Comment on above: Order Comment: Order Date: 04/18/24 Order Info: 0786-1 - CMP Order Info: [id number] - LIPID Order Info: [id number] - MG Order Info: 3016-3 - TSH Performed By: #### L 500.4050, L100.0100, L500.4100, L506.1000, L501.9520 #### [facility] [address] [place], [address] Lipid Profileon 04-19-2024 Cholesterol [Mass/Vol] 138 mg/dL Normal 200 [facility] Comment on above: Order Comment: Order Date: 04/18/24 Order Info: 0786-1 - CMP Order Info: [id number] - LIPID Order Info: [id number] - MG Order Info: 3016-3 - TSH Result Comment: <200 mg/dL Desirable 200-240 mg/dL Borderline >240 mg/dL High Risk Performed By: #### L 500.4050, L100.0100, L500.4100, L506.1000, L501.9520 #### [facility] [address], [address] Cholesterol in HDL [Mass/Vol] 66 mg/dL Normal [facility] Comment on above: Order Comment: Order Date: 04/18/24 Order Info: 785-1 - CMP Order Info: [id number] - LIPID Order Info: [id number] - MG Order Info: 3016-3 - TSH Result Comment: The drugs N-Acetylcysteine and Metamizole may falsely depress this assay. Reference Range HDL <40 mg/dL Low HDL Cholesterol HDL >or= 60 mg/dL High HDL Cholesterol Performed By: #### L 500.4050, L100.0100, L500.4100, L506.1000, L501.9520 #### [facility] [address] [place], [address] Cholesterol in LDL [Mass/Vol] 28 mg/dL Normal 0-130 [facility] Comment on above: Order Comment: Order Date: 04/18/24 Order Info: 0786-1 - CMP Order Info: [id number] - LIPID Order Info: [id number] - MG Order Info: 3016-3 - TSH Performed By: #### L 500.4050, L100.0100, L500.4100, L506.1000, L501.9520 #### [facility] [address], [address] Cholesterol in VLDL [Mass/Vol] 44 mg/dL High 5-40 [facility] Comment on above: Order Comment: Order Date: 04/18/24 Order Info: 07-1 - CMP Order Info: [id number] - LIPID Order Info: [id number] - MG Order Info: 3016-3 - TSH Performed By: #### L 500.4050, L100.0100, L500.4100, L506.1000, L501.9520 #### [facility] [address] [place], [place], [address] Triglyceride [Mass/Vol] 221 mg/dL High W [facility] Comment on above: Order Comment: Order Date: 04/18/24 Order Info: 0786-1 - CMP Order Info: [id number] - LIPID Order Info: [id number] - MG Order Info: 301-3 - TSH Result Comment: The drugs N-Acetylcysteine and Metamizole may falsely depress this assay. Serum Triglycerides Reference Interval Normal <150 mg/dL Borderline high 150 - 199 mg/dL High 200 - 499 mg/dL Very High > or = 500 mg/dL Performed By: #### L 500.4050, L100.0100, L500.4100, L506.1000, L501.9520 #### [facility] [address] [place], [place], [address] Magnesiumon 04-19-2024 Magnesium [Mass/Vol] 1.9 mg/dL Normal 1.6-2.6 [facility] Comment on above: Order Comment: Order Date: 04/18/24 Order Info: 0786-1 - CMP Order Info: [id number] - LIPID Order Info: [id number] - MG Order Info: 301-3 - TSH Performed By: #### L 501.5200 #### [facility] [address] [place], [place], [id number] Thyroid Stim Hormone (TSH)on 04-19-2024 TSH 3.140 uIU/mL Normal 0.358-3.740 [facility] Comment on above: Order Comment: Order Date: 04/18/24 Order Info: 0786-1 - CMP Order Info: [id number] - LIPID Order Info: [id number] - MG Order Info: 3016-3 - TSH Performed By: #### L 500.4050, L100.0100, L500.4100, L506.1000, L501.9520 #### [facility] [address], [address] Vitamin D,25 Hydroxyon 04-19 Vitamin D 25-OH 32.9 ng/mL Normal [facility] Comment on above: Order Comment: Order Date: 04/18/24 Order Info: [id number] - VITD25 Result Comment: Sarah min D 25(OH) Status Range Deficiency <20 ng/mL (50nmol/L) Insufficiency 20 - 30 ng/mL (50 - 75 nmol/L) Sufficiency 30 - 100 ng/mL (75 - 250 nmol/L) Toxicity >100 ng/mL (>250 nmol/L) Performed By: #### L 500.4050, L100.0100, L500.4100, L506.1000, L501.9520 #### [facility] [address], [address] Internal Medicine Office Vis itomaría 02-25-2024 Internal Medicine Office Visit [facility] [address] [place] [address] [place] [address] OFFICE VISIT Date of Service: 02/25/24 MR#: [id number] Acct: [id number] Name: MADDY BENEDICT Rep #: [id number] : 1960 Provider: Dr. 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 Normal [facility] Basophil percentageOrdered B y: Thierno Ambriz on 04-02-2023 Chloride [Moles/Vol] 109 mmol/L 98-107 [facility] Cholesterol [Mass/Vol] 147 mg/dL <200 [facility] Comment on above: <200 mg/dL Desirable 200-240 mg/dL Borderline >240 mg/dL High Risk Glucose [Mass/Vol] 97 mg/dL 74-106 [facility] Potassium [Moles/Vol] 4.3 mmol/L 3.5-5.1 [facility] Sodium [Moles/Vol] 143 mmol/L 136-145 [facility] Triglyceride [Mass/Vol] 152 mg/dL <199 [facility] Comment on above: The drugs N-Acetylcy steine and Metamizole may falsely depress this assay.Serum Triglycerides Reference Interval Normal <150 mg/dL Borderline high 150 - 199 mg/dL High 200 - 499 mg/dL Very High > or = 500 mg/dL Laboratory - Chemistry and C hemistry - challengeOrdered By: Thierno Ambriz on 04-02-2023 CO2 [Moles/Vol] 27.0 mmol/L 21.0-32.0 [facility] Magnesium [Mass/Vol] 2.0 mg/dL 1.6-2.6 [facility] Urea nitrogen/Creatinine [Mass ratio] 29.4 mg/mg 10-20 [facility] No Panel InformationOrdered By: Thierno Ambriz on 04-02-2023 Estimated GFR (MDRD) Amer 171 mL/min >60 [facility] Comment on above: GFR Calc Estimated GFR (MDRD) Non-Af Amer 141 mL/min >60 [facility] Comment on above: Non- GFR Calc Serum or plasma calcium nolan urement (mass/volume)Ordered By: Thierno Ambriz on 04-02-2023 Calcium [Mass/Vol] 9.0 mg/dL 8.5-10.1 [facility] Serum or plasma cholesterol in HDL measurement (mass/volume)Ordered By: Thierno Ambriz on 04-02-2023 Cholesterol in HDL [Mass/Vol] 61 mg/dL >40 [facility] Comment on above: The drugs N-Acetylcy steine and Metamizole may falsely depress this assay. Reference Range HDL <40 mg/dL Low HDL Cholesterol HDL >or= 60 mg/dL High HDL Cholesterol Serum or plasma cholesterol in VLDL measurement (mass/volume)Ordered By: Thierno Ambriz on 04-02-2023 Cholesterol in VLDL [Mass/Vol] 30 mg/dL 5-40 [facility] Serum or plasma creatinine m easurement (mass/volume)Ordered By: Thierno Ambriz on 04-02-2023 Creatinine [Mass/Vol] 0.48 mg/dL 0.55-1.02 [facility] Comment on above: The validity of the calculated GFR & GFRAA in patients over 70 years has not been determined. Clinical correlation is essential. Serum or plasma low density lipoprotein (LDL) cholesterol measurement (mass/volume)Ordered By: Thierno Ambriz on 04-02-2023 Cholesterol in LDL [Mass/Vol] 56 mg/dL 0-130 [facility] Serum or plasma urea nitroge n measurement (mass/volume)Ordered By: Thierno Ambriz on 04-02-2023 Urea nitrogen [Mass/Vol] 14 mg/dL 7-18 [facility] Thin prep Papanicolaou smear with manual screeningOrdered By: Thierno Ambriz on 04-02-2023 Thin prep Papanicolaou smear with manual screening 7 5-15 [facility] No Panel Informationon 03-20 POC SARS CoV-2 Antigen Negative [facility] Laboratory - Hematology and Cell countson 12-29-2022 HbA1c (Bld) [Mass fraction] 6.5 % 4.2-6.3 [facility] Absolute lymphocyte countOrd ered By: Dr. Ambriz on 09-24-2022 Lymphocytes Auto (Unsp spec) [#/Vol] 2.86 10*3/uL 0.83-4.51 [facility] Basophil percentageOrdered B y: Dr. Ambriz on 09-24-2022 Basophils/100 WBC (Bld) 0.8 % 0-1 [facility] Bilirubin [Mass/Vol] 0.60 mg/dL 0.20-1.[address] [facility] Comment on above: For patients on eltr ombopag therapy, use of Dimension Udell TBIL is not recommended. Chloride [Moles/Vol] 105 mmol/L 98-107 [facility] Cholesterol [Mass/Vol] 142 mg/dL <200 [facility] Comment on above: <200 mg/dL Desirable 200-240 mg/dL Borderline >240 mg/dL High Risk Eosinophils/100 WBC (Bld) 2.1 % 0-5 [facility] Glucose [Mass/Vol] 182 mg/dL 74-106 [facility] Comment on above: Fasting Glucose resu lt greater than or equal to 126 mg/dL suggests DIABETES MELLITUS per A.D.A. criteria. Neutrophils (Bld) [#/Vol] 4.3 10*3/uL 2.0-7.7 [facility] Neutrophils/100 WBC (Bld) 54.4 % 47-70 [facility] Potassium [Moles/Vol] 4.2 mmol/L 3.5-5.1 [facility] Protein [Mass/Vol] 8.0 g/dL 6.4-8.2 [facility] Sodium [Moles/Vol] 139 mmol/L 136-145 [facility] Triglyceride [Mass/Vol] 250 mg/dL <199 [facility] Comment on above: The drugs N-Acetylcy steine and Metamizole may falsely depress this assay.Serum Triglycerides Reference Interval Normal <150 mg/dL Borderline high 150 - 199 mg/dL High 200 - 499 mg/dL Very High > or = 500 mg/dL WBC (Bld) [#/Vol] 8.0 10*3/uL 4.4-11.0 [facility] Blood erythrocytes count (nu mber/volume)Ordered By: Dr. Ambriz on 09-24-2022 RBC (Bld) [#/Vol] 4.34 10*6/uL 4.2-5.4 [facility] Blood hemoglobin measurement (mass/volume)Ordered By: Dr. Ambriz on 09-24-2022 Hemoglobin (Bld) [Mass/Vol] 13.5 g/dL 12.0-15.0 [facility] Blood lymphocytes/100 leukoc ytesOrdered By: Dr. Ambriz on 09-24-2022 Lymphocytes/100 WBC (Bld) 35.9 % 19-41 [facility] Blood monocytes/100 leukocyt esOrdered By: Dr. Ambriz on 09-24-2022 Monocytes/100 WBC (Bld) 6.4 % 0-10 [facility] Blood platelet mean volumeOr dered By: Dr. Ambriz on 09-24-2022 Platelet mean volume (Bld) [Entitic vol] 11.1 fL 6.2-12.0 [facility] Determination of erythrocyte mean corpuscular volume (MCV)Ordered By: Dr. Ambriz on 09-24-2022 MCV (RBC) [Entitic vol] 91.5 fL 81-99 [facility] Hematocrit Auto (Bld) [Volum e fraction]Ordered By: Dr. Ambriz on 09-24-2022 Hematocrit (Bld) [Volume fraction] 39.7 % 37-47 [facility] Laboratory - Chemistry and C hemistry - challengeOrdered By: Dr. Ambriz on 09-24-2022 ALP [Catalytic activity/Vol] 165 U/L 45-117 [facility] ALT [Catalytic activity/Vol] 30 U/L 13-56 [facility] CO2 [Moles/Vol] 26.0 mmol/L 21.0-32.0 [facility] Globulin (S) [Mass/Vol] 4.1 g/dL 2.2-4.2 [facility] Urea nitrogen/Creatinine [Mass ratio] 15.7 mg/mg 10-20 [facility] Laboratory - Hematology and Cell countsOrdered By: Dr. Ambriz on 09-24-2022 Erythrocyte distribution width (RBC) [Entitic vol] 40.6 fL 35.1-43.9 [facility] Erythrocyte distribution width (RBC) [Ratio] 12.2 % 11.6-14.6 [facility] Immature granulocytes/100 WBC (Bld) 0.400 % 0.0-0.9 [facility] Comment on above: IG% - Immature Granu locytes (promyelocytes, myelocytes and metamyelocytes) > 1% indicates that a LEFT SHIFT is Present. MCH (RBC) [Entitic mass] 31.1 pg 27.0-32.0 [facility] Nucleated RBC/100 WBC (Bld) [Ratio] 0 % 0-5 [facility] Auto (RBC) [Mass/Vol]Or dered By: Dr. Ambriz on 09-24-2022 MCHC (RBC) [Mass/Vol] 34.0 g/dL 32-36 [facility] No Panel InformationOrdered By: Dr. Ambriz on 09-24-2022 Estimated GFR (MDRD) Amer 122 mL/min >60 [facility] Comment on above: GFR Calc Estimated GFR (MDRD) Non-Af Amer 101 mL/min >60 [facility] Comment on above: Non- GFR Calc Thyroid Stimulating Hormone (TSH) 1.00 uIU/mL 0.358-3.74 [facility] Urine Microalbumin/Creatinine Ratio 9.5 mg/g CRE <30 [facility] Platelets bldOrdered By: Dr. Ambriz on 09-24-2022 Platelets (Bld) [#/Vol] 253 10*3/uL 150-450 [facility] Serum or plasma albumin nolan urement (mass/volume)Ordered By: Dr. Ambriz on 09-24-2022 Albumin [Mass/Vol] 3.9 g/dL 3.2-5.0 [facility] Serum or plasma albumin/glob ulin mass ratioOrdered By: Dr. Ambriz on 09-24-2022 Albumin/Globulin [Mass ratio] 1.0 {ratio} 0.9-2.4 [facility] Serum or plasma calcium nolan urement (mass/volume)Ordered By: Dr. Ambriz on 09-24-2022 Calcium [Mass/Vol] 10.2 mg/dL 8.5-10.1 [facility] Serum or plasma cholesterol in HDL measurement (mass/volume)Ordered By: Dr. Ambriz on 09-24-2022 Cholesterol in HDL [Mass/Vol] 57 mg/dL >40 [facility] Comment on above: The drugs N-Acetylcy steine and Metamizole may falsely depress this assay. Reference Range HDL <40 mg/dL Low HDL Cholesterol HDL >or= 60 mg/dL High HDL Cholesterol Serum or plasma cholesterol in VLDL measurement (mass/volume)Ordered By: Dr. Ambriz on 09-24-2022 Cholesterol in VLDL [Mass/Vol] 50 mg/dL 5-40 [facility] Serum or plasma creatinine m easurement (mass/volume)Ordered By: Dr. Ambriz on 09-24-2022 Creatinine [Mass/Vol] 0.64 mg/dL 0.55-1.02 [facility] Comment on above: The validity of the calculated GFR & GFRAA in patients over 70 years has not been determined. Clinical correlation is essential. Serum or plasma low density lipoprotein (LDL) cholesterol measurement (mass/volume)Ordered By: Dr. Ambriz on 09-24-2022 Cholesterol in LDL [Mass/Vol] 35 mg/dL 0-130 [facility] Serum or plasma urea nitroge n measurement (mass/volume)Ordered By: Dr. Ambriz on 09-24-2022 Urea nitrogen [Mass/Vol] 10 mg/dL 7-18 [facility] Thin prep Papanicolaou smear with manual screeningOrdered By: Dr. Ambriz on 09-24-2022 Thin prep Papanicolaou smear with manual screening 20 U/L 15-37 [facility] Thin prep Papanicolaou smear with manual screening 8 5-15 [facility] Thin prep Papanicolaou smear with manual screening 9.8 mg/L NO RANGE EST. [facility] Urine creatinine measurement (mass/volume)Ordered By: Dr. Ambriz on 09-24-2022 Creatinine (U) [Mass/Vol] 103.00 mg/dL NO RANGE EST. [facility] Whole blood hemoglobin A1c/t otal hemoglobin ratio (mass fraction)Ordered By: Dr. Ambriz on 09-24-2022 HbA1c (Bld) [Mass fraction] 9.3 % 3.8-5.6 [facility] Comment on above: Normal < 5.7 % Predi abetic 5.7 - 6.4 % Diabetic >or= 6.5 % Please note range changes. Basophil percentageon 2021 Bilirubin [Mass/Vol] 0.50 mg/dL 0.20-1.00 [facility] Work Phone: Comment on above: For patients on eltr ombopag therapy, use of Dimension Udell TBIL is not recommended. Chloride [Moles/Vol] 104 mmol/L 98-107 [facility] Work Phone: Cholesterol [Mass/Vol] 139 mg/dL <200 [facility] Work Phone: Comment on above: <200 mg/dL Desirable 200-240 mg/dL Borderline >240 mg/dL High Risk Glucose [Mass/Vol] 196 mg/dL 74-106 [facility] Work Phone: Comment on above: Fasting Glucose resu lt greater than or equal to 126 mg/dL suggests DIABETES MELLITUS per A.D.A. criteria. Potassium [Moles/Vol] 3.7 mmol/L 3.5-5.1 [facility] Work Phone: Protein [Mass/Vol] 7.9 g/dL 6.4-8.2 [facility] Work Phone: Sodium [Moles/Vol] 136 mmol/L 136-145 [facility] Work Phone: Triglyceride [Mass/Vol] 166 mg/dL <199 [facility] Work Phone: Comment on above: The drugs N-Acetylcy steine and Metamizole may falsely depress this assay.Serum Triglycerides Reference Interval Normal <150 mg/dL Borderline high 150 - 199 mg/dL High 200 - 499 mg/dL Very High > or = 500 mg/dL Direct bilirubinon 2 Bilirubin.direct [Mass/Vol] 0.15 mg/dL 0.00-0.30 [facility] Work Phone: Laboratory - Chemistry and C hemistry - challengeon 11-27-2021 ALP [Catalytic activity/Vol] 149 U/L 45-117 [facility] Work Phone: ALT [Catalytic activity/Vol] 30 U/L 13-56 [facility] Work Phone: CO2 [Moles/Vol] 25.0 mmol/L 21.0-32.0 [facility] Work Phone: Globulin (S) [Mass/Vol] 4.1 g/dL 2.2-4.2 [facility] Work Phone: Magnesium [Mass/Vol] 1.5 mg/dL 1.6-2.6 [facility] Work Phone: T4 [Mass/Vol] 11.3 ug/dL 4.8-13.9 [facility] Work Phone: Urea nitrogen/Creatinine [Mass ratio] 14.0 mg/mg 10-20 [facility] Work Phone: No Panel Informationon 11-27 Estimated GFR (MDRD) Amer 121 mL/min >60 [facility] Work Phone: Comment on above: GFR Calc Estimated GFR (MDRD) Non-Af Amer 100 mL/min >60 [facility] Work Phone: Comment on above: Non- GFR Calc Thyroid Stimulating Hormone (TSH) 1.52 uIU/mL 0.358-3.74 [facility] Work Phone: Urine Microalbumin/Creatinine Ratio 19.3 mg/g CRE <30 [facility] Work Phone: Serum or plasma albumin nolan urement (mass/volume)on 11-27-2021 Albumin [Mass/Vol] 3.8 g/dL 3.2-5.0 [facility] Work Phone: Serum or plasma calcium nolan urement (mass/volume)on 11-27-2021 Calcium [Mass/Vol] 9.3 mg/dL 8.5-10.1 [facility] Work Phone: Serum or plasma cholesterol in HDL measurement (mass/volume)on 11-27-2021 Cholesterol in HDL [Mass/Vol] 60 mg/dL >40 [facility] Work Phone: Comment on above: The drugs N-Acetylcy steine and Metamizole may falsely depress this assay. Reference Range HDL <40 mg/dL Low HDL Cholesterol HDL >or= 60 mg/dL High HDL Cholesterol Serum or plasma cholesterol in VLDL measurement (mass/volume)on 11-27-2021 Cholesterol in VLDL [Mass/Vol] 33 mg/dL 5-40 [facility] Work Phone: Serum or plasma creatinine m easurement (mass/volume)on 11-27-2021 Creatinine [Mass/Vol] 0.64 mg/dL 0.55-1.02 [facility] Work Phone: Comment on above: The validity of the calculated GFR & GFRAA in patients over 70 years has not been determined. Clinical correlation is essential. Serum or plasma low density lipoprotein (LDL) cholesterol measurement (mass/volume)on 11-27-2021 Cholesterol in LDL [Mass/Vol] 46 mg/dL 0-130 [facility] Work Phone: Serum or plasma urea nitroge n measurement (mass/volume)on 11-27-2021 Urea nitrogen [Mass/Vol] 9 mg/dL 7-18 [facility] Work Phone: Thin prep Papanicolaou smear with manual screeningon 11-27-2021 Thin prep Papanicolaou smear with manual screening 28 U/L 15-37 [facility] Work Phone: Thin prep Papanicolaou smear with manual screening 7 5-15 [facility] Work Phone: Thin prep Papanicolaou smear with manual screening 8.4 mg/L NO RANGE EST. [facility] Work Phone: Urine creatinine measurement (mass/volume)on 11-27-2021 Creatinine (U) [Mass/Vol] 43.50 mg/dL NO RANGE EST. [facility] Work Phone: Vital Signs Date Time Vital Sign Value Performing Clinician Faci lity 04-08-2023 13:35-0500 Body height 157.[address] Thierno Ambriz Work Phone: [facility] 04-08-2023 13:35-0500 Body mass index (BMI) [Ratio] 39.6 kg/m2 Dr. Thierno Ambriz Work Phone: [facility] 04-08-2023 13:35-0500 Body temperature 97.1 [degF] Dr. Thierno Ambriz Work Phone: [facility] 04-08-2023 13:35-0500 Body weight 98.[address] Thierno Ambriz Work Phone: [facility] 04-08-2023 13:35-0500 Diastolic blood pressure 60 mm[Hg] Dr. Thierno Ambriz Work Phone: [facility] 04-08-2023 13:35-0500 Heart rate 80 /min Dr. Thierno Ambriz Work Phone: [facility] 04-08-2023 13:35-0500 Respiratory rate 16 /min Dr. Thierno Ambriz Work Phone: [facility] 04-08-2023 13:35-0500 SaO2% (BldA) [Mass fraction] 98 % Dr. Thierno Ambriz Work Phone: [facility] 04-08-2023 13:35-0500 Systolic blood pressure 118 mm[Hg] Dr. Thierno Ambriz Work Phone: [facility] 03-20-2023 07:25-0500 Body mass index (BMI) [Ratio] 41 kg/m2 Dr. Thierno Ambriz Work Phone: [facility] 03-20-2023 07:25-0500 Body temperature 98.5 [degF] Dr. Thierno Ambriz Work Phone: [facility] 03-20-2023 07:25-0500 Body weight 101.[address] Thierno Ambriz Work Phone: [facility] 03-20-2023 07:25-0500 Diastolic blood pressure 72 mm[Hg] Dr. Thierno Ambriz Work Phone: [facility] 03-20-2023 07:25-0500 Heart rate 75 /min Dr. Thierno Ambriz Work Phone: [facility] 03-20-2023 07:25-0500 Respiratory rate 17 /min Dr. Thierno Ambriz Work Phone: [facility] 03-20-2023 07:25-0500 SaO2% (BldA) [Mass fraction] 98 % Dr. Thierno Ambriz Work Phone: [facility] 03-20-2023 07:25-0500 Systolic blood pressure 136 mm[Hg] Dr. Thierno Ambriz Work Phone: [facility] 12-29-2022 08:18-0400 Body mass index (BMI) [Ratio] 40.2 kg/m2 Dr. Thierno Ambriz Work Phone: [facility] 12-29-2022 08:18-0400 Body temperature 96.2 [degF] Dr. Thierno Ambriz Work Phone: [facility] 12-29-2022 08:18-0400 Body weight 99.[address] Thierno Ambriz Work Phone: [facility] 12-29-2022 08:18-0400 Diastolic blood pressure 82 mm[Hg] Dr. Thierno Ambriz Work Phone: [facility] 12-29-2022 08:18-0400 Heart rate 73 /min Dr. Thierno Ambriz Work Phone: [facility] 12-29-2022 08:18-0400 Respiratory rate 18 /min Dr. Thierno Ambriz Work Phone: [facility] 12-29-2022 08:18-0400 SaO2% (BldA) [Mass fraction] 98 % Dr. Thierno Ambriz Work Phone: [facility] 12-29-2022 08:18-0400 Systolic blood pressure 136 mm[Hg] Dr. Thierno Ambriz Work Phone: [facility] 09-24-2022 14:45-0400 Body height 157.[address] Haydee Szymanski Work Phone: [facility] 09-24-2022 14:45-0400 Body mass index (BMI) [Ratio] 42.7 kg/m2 Dr. Haydee Szymanski Work Phone: [facility] 09-24-2022 14:45-0400 Body temperature 98.2 [degF] Dr. Haydee Szymanski Work Phone: [facility] 09-24-2022 14:45-0400 Body weight 106.[address] Haydee Szymanski Work Phone: [facility] 09-24-2022 14:45-0400 Diastolic blood pressure 78 mm[Hg] Dr. Haydee Szymanski Work Phone: [facility] 09-24-2022 14:45-0400 Heart rate 78 /min Dr. Haydee Szymanski Work Phone: [facility] 09-24-2022 14:45-0400 Respiratory rate 18 /min Dr. Haydee Szymanski Work Phone: [facility] 09-24-2022 14:45-0400 SaO2% (BldA) [Mass fraction] 98 % Dr. Haydee Szymanski Work Phone: [facility] 09-24-2022 14:45-0400 Systolic blood pressure 122 mm[Hg] Dr. Haydee Szymanski Work Phone: [facility] Encounters Encounter Date Encounter Type Care Provider Facility Start: 01-27-2025 ambulatory [facility] Facility:[facility] Start: 04-19-2024 End: 04-19-2024 ambulatory Katie Luz Facility:[facility] Start: 02-25-2024 End: 02-25-2024 ambulatory Thierno Ambriz Facility:[facility] Start: 04-08-2023 End: 04-08-[address] Thierno Ambriz Work Phone: [facility] Work Phone: Start: 04-02-2023 End: 04-02-[address] Thierno Ambriz Work Phone: [facility] Work Phone: Start: 04-02-2023 End: 04-02-[address] Thierno Ambriz Work Phone: [facility] Start: 03-20-2023 End: 03-20-[address] Thierno Ambriz Work Phone: [facility] Work Phone: Start: 12-29-2022 End: 12-29-[address] Thierno Ambriz Work Phone: [facility] Work Phone: Start: 11-24-2022 End: 11-24-[address] Haydee Szymanski Work Phone: [facility] Work Phone: Start: 11-24-2022 End: 11-24-[address] Haydee Szymanski Work Phone: [facility] Work Phone: Start: 09-24-2022 End: 09-24-[address] Haydee Szymanski Work Phone: [facility] Work Phone: Start: 09-24-2022 End: 09-24-[address] Haydee Szymanski Work Phone: [facility] Internal [facility] Start: 11-27-2021 End: 11-27-2021 ambulatory [facility] Work Phone: Start: 11-27-2021 End: 11-27-2021 Patient encounter procedure [facility] Start: 11-18-2021 End: 11-18-2021 Patient encounter procedure [facility] Procedures Date Procedure Procedure Detail Performing Clinician Start: 11-24-2022 Screening mammography Eugenie viktorErick Haydee Szymanski Work Phone: Start: 11-18-2021 Screening mammography Plan of Treatment Date Care Activity Detail Author Start: 09-24-2022 Patient referral [facility] Work Phone: Patient referral [facility] Work Phone: Payers Date Payer Category Payer Self-pay [id number] 2020 Unknown [id number] 2016 Private Health Insurance [facility] [id number] Unknown [employer] [id number] Unknown [id number] Unknown [id number] Unknown [id number] Unknown [id number] Social History Date Type Detail Facility Start: 07-02-2021 End: 04-08-2023 Tobacco smoking status GAIS Unknown if ever smoked [facility] Start: 02-04-2015 None [facility] Start: 02-04-2015 Non-smoker [facility] Start: 1960 Sex Assigned At Female [facility] Evaluation note Note Date & Type Note Facility Evaluation note No assessment information availa ble [facility] Work Phone: Evaluation note Note Date & Type Note Facility Evaluation note Diagnosis Onset Date HLD (hyperlipidemia) chronic HTN (hypertension) chronic Hypothyroidism chronic Type 2 diabetes mellitus chr on[facility] Work Phone: Evaluation note Note Date & Type Note Facility Evaluation note Diagnosis Onset Date Dermatitis acute HTN (hypertension) chronic Type 2 diabetes mellitus [facility] Asthmatic bronchitis with acute exacerbation acute HLD (hyperlipidemia) chronic HTN (hypertension) chronic Hypothyroidism chronic Type 2 diabetes mellitus [facility] Work Phone: Chief Complaint and Reason for Visit Chief Complaint SCREENING 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 [facility] P ATIENT SCREENING Reason for Visit [...] Yes January 01, 2021 1:29pm Power of First Press Operator Yes December 1:29pm Advance Directive Response Recorded Date/ Time Advance Directives No January 21, 2015 2:44am Living Will Yes January 01, 2021 12:29pm Power of First Press Operator Yes December 12:29pm Summary Purpose Additional Source [...] Dates Dr. Thierno Ambriz MD Primary Care Ying howard, Attending Provider, Referring Provider Active Team Status: Inactive Member Role Status Dates Queta Ann PROGRAM COORDINATOR [employer], PROGRAM COORDINATOR [employer]-C Attending Provider, Referring Provider Active Dr. Thierno Ambriz MD Primary Care Provider Active Team Status: Inactive Member Role Status Dates Dr. Thierno Ambriz MD Primary Care Provider, Refer ring Provider Active Francisco Javier MCARTHUR, PA Attending Provider Active INFORMATION SOURCE (unrecogn ized section and content) DATE CREATED AUTHOR 02/10/2025 [facility] FOR RECORDS PERTAINING TO PATIENTS WHO ARE [...] BE BASED ON THE PRIMARY CLINICAL RECORDS. [facility]. provides no warranty or guarantee of the accuracy or completeness of information in this document.
== END | disposition home or self-care (01) ==
LOC: CVS 12:24
PROVIDERS: PCP Family Medicine; Referring Provider Family Medicine; Visit Provider Family Medicine
DX: R60.0 Localized edema (principal)
CPT/HCPCS: 93970